=== PATIENT | male | born 1940 | race Caucasian/White ===

== ENCOUNTER 2019-07-21 13:46 | Outpatient (CLI) | payer MEDICARE, SELFPAY ==
--- NOTE | ~2019-07-21 | CT_ITS ---
EXAMINATION: CT chest wo con DATE: 07/21/2019 14:17 INDICATION: COPD TECHNIQUE: Computed tomography (CT) of the chest was performed without intravenous contrast. The dose -length product (DLP) was 382.06 mGy-cm. Automated exposure control and iterative reconstruction tech [employer] were employed. COMPARISON: None FINDINGS: There are tree-in-bud opacities of the lower lobes, left greater than right, the right uppe r lobe, and the left upper lobe. There is mild emphysema. No pleural effusion or pneumothorax is iden tified. No pathologically enlarged thoracic lymph nodes are identified. The heart size is normal. Zafar cified coronary artery atherosclerosis is noted. There is advanced osteoarthritis of the shoulders. T here are bridging osteophytes at multiple levels in the spine, consistent with diffuse idiopathic ske letal hyperostosis (DISH). Neurostimulator leads end in the central spinal canal. There are changes o f posterior fusion in the lumbar spine. IMPRESSION: 1. Findings most consistent with multifocal pneumonia. 2. Mild emphysema. Reviewed, dictated and finalized at location A.
== END 2019-07-21 13:47 | disposition home or self-care (01) ==
PROVIDERS: PCP Internal Medicine; Visit Provider Internal Medicine
DX: J44.9 Chronic obstructive pulmonary disease, unspecified (principal); J43.9 Emphysema, unspecified
CPT/HCPCS: 71250

== ENCOUNTER 2019-09-12 10:05 | Outpatient (CLI) | payer MEDICARE, SELFPAY ==
--- NOTE | 2019-09-12 12:00 | NEURO_ITS ---
Patient Number: [id number] Impression: # Complains of numbness of hands and neck pain. # Mild bilateral evolving Carpal Tunnel Syndrome. # Left ulnar neuropathy across the elbow. # Higher involvement needs to be ruled out as well. Nerve Conduction Studies Anti Sensory Summary Table Stim Site NR Peak (ms) P-T Amp (?V) Site1 Site2 Delta-P (ms) Dist (cm) Hi (m/s) Left Median Anti Sensory (2-3nd Digit) Wrist 4.1 6.8 Wrist 2-3nd Digit 4.1 14.0 34 Wrist 4.0 9.8 Wrist 2-3nd Digit 4.1 14.0 34 Right Median Anti Sensory (2-3nd Digit) Wrist 3.9 4.9 Wrist 2-3nd Digit 3.9 14.0 36 Wrist 3.8 10.4 Wrist 2-3nd Digit 3.9 14.0 36 Left Radial Anti Sensory (Base 1st Digit) Wrist 2.4 23.1 Wrist Base 1st Digit 2.4 0.0 Right Radial Anti Sensory (Base 1st Digit) Wrist 2.8 19.4 Wrist Base 1st Digit 2.8 0.0 Left Ulnar Anti Sensory (5th Digit) Wrist 3.5 15.9 Wrist 5th Digit 3.5 14.0 40 Right Ulnar Anti Sensory (5th Digit) Wrist 2.8 20.8 Wrist 5th Digit 2.8 14.0 50 Motor Summary Table Stim Site NR Onset (ms) O-P Amp (mV) Site1 Site2 Delta-0 (ms) Dist (cm) Hi (m/s) Left Median Motor (Abd Poll Brev) Wrist 4.2 1.0 Elbow Wrist 6.0 30.0 50 Elbow 10.2 0.6 Right Median Motor (Abd Poll Brev) Wrist 4.1 0.4 Elbow Wrist 5.0 29.0 58 Elbow 9.1 0.2 Left Ulnar Motor (Abd Dig Minimi) Wrist 3.3 3.1 A Elbow Wrist 6.4 28.0 44 A Elbow 9.7 2.5 B Elbow Wrist 5.8 24.0 41 B Elbow 9.1 1.7 Right Ulnar Motor (Abd Dig Minimi) Wrist 3.0 1.9 A Elbow Wrist 5.8 30.0 52 A Elbow 8.8 1.4 F Wave Studies NR F-Lat (ms) L-R F-Lat (ms) Left Median (Mrkrs) (Abd Poll Brev) 30.23 1.87 Right Median (Mrkrs) (Abd Poll Brev) 32.11 1.87 Left Ulnar (Mrkrs) (Abd Dig Min) 31.42 1.35 Right Ulnar (Mrkrs) (Abd Dig Min) 30.08 1.35 EMG Side Muscle Nerve Root Ins Act Fibs Amp Dur Recrt Comment Right 1stDorInt Ulnar C8-T1 Nml Nml Nml Nml Nml Right Ext Indicis Radial (Post Int) C7-8 Nml Nml Nml Nml Nml Right Ext Digitorum Radial (Post Int) C7-8 Nml Nml Nml Nml Nml Right BrachioRad Radial C5-6 Nml Nml Nml Nml Nml Right PronatorTeres Median C6-7 Nml Nml Nml Nml Nml Right Abd Poll Brev Median C8-T1 Nml Nml Nml Nml Nml Left 1stDorInt Ulnar C8-T1 Nml Nml Nml Nml Nml Left Ext Indicis Radial (Post Int) C7-8 Nml Nml Nml Nml Nml Left Ext Digitorum Radial (Post Int) C7-8 Nml Nml Nml Nml Nml Left BrachioRad Radial C5-6 Nml Nml Nml Nml Nml Left PronatorTeres Median C6-7 Nml Nml Nml Nml Nml Left Abd Poll Brev Median C8-T1 Nml Nml Nml Nml Nml MTDD
== END 2019-09-12 10:06 | disposition home or self-care (01) ==
PROVIDERS: PCP Internal Medicine; Visit Provider Internal Medicine
DX: R20.0 Anesthesia of skin (principal); G56.03 Carpal tunnel syndrome, bilateral upper limbs; G56.22 Lesion of ulnar nerve, left upper limb
CPT/HCPCS: 95886; 95911

== ENCOUNTER 2019-09-28 11:07 | Observation (INO) | payer MEDICARE, SELFPAY ==
[2019-09-28] VITALS (12 sets, daily range): BP systolic 129–151; BP diastolic 70–97; PULSE 62–97; RESP 12–20; TEMP 35.8–36.8; O2SAT 97–100; BMI 27.1
--- NOTE | ~2019-09-28 | CT_ITS ---
EXAMINATION: CT thoracic lumbar wo con DATE: 09/28/2019 12:01 INDICATION: Back pain. Injury. TECHNIQUE: Computed tomography (CT) of the thoracic and lumbar spine was performed without intravenou s contrast. Automated exposure control and iterative reconstruction technique were employed. The dose -length product was 1995.51 mGy-cm. COMPARISON: None FINDINGS: THORACIC SPINE CT: There is cervical dextroscoliosis. Vertebral body heights are normal. There is sev erely decreased disc height at T2-T3, T3-T4, and T12-L1 and mildly decreased disc height at multiple levels. There are endplate osteophytes at all levels. There is multilevel facet joint osteoarthritis, severe at many levels. There is mild neural foraminal stenosis at many levels bilaterally. On the ri ght, there is moderate neural foraminal stenosis at T3-T4 and T11-T12. On the left, there is moderate neural foraminal stenosis at T2-T3. There is mild central canal stenosis at T1-T2, T2-T3, T3-T4, T4- T5, T5-T6, T6-T7, T8-T9, T10-T11, and T12-L1. There are epidural electrodes with tips at T7-T8. LUMBAR SPINE CT: There is 6 degrees levocurvature of lumbar spine. There are changes of anterior fusi on procedure at L2-L3 with interbody device. There are changes of anterior fusion procedures at L3-L4 and L4-L5 with interbody devices and anterior plate and screws. There are changes of posterior fusio n procedure from L2 to S1 with pedicle screws. There is 2 mm lucency around the right S1 screw. There are laminectomies from L3 to L5. There is partial resection of the L2 spinous process. The following disc levels are specifically discussed: L1-L2: The disc is bulging. There is severe bilateral facet joint osteoarthritis. There is moderate b ilateral neural foraminal stenosis. There is mild central canal stenosis. L2-L3: There is mild left facet joint hypertrophy. There is mild bilateral neural foraminal stenosis. There is no central canal stenosis. L3-L4: There is no facet joint hypertrophy. There is mild bilateral neural foraminal stenosis with po sterior decompression. There is mild central canal stenosis with posterior decompression. L4-L5: There is mild bilateral facet joint hypertrophy. There is mild bilateral neural foraminal sten osis. There is mild central canal stenosis with posterior decompression. L5-S1: The disc is bulging. There is severe bilateral facet joint osteoarthritis. There is mild right and moderate left neural foraminal stenosis. There is mild central canal stenosis with posterior dec ompression. IMPRESSION: 1. Severe lumbar spondylosis. 2. Anterior fusion procedures from L2 to L5. 3. Posterior fusion procedure from L2 to S1 with lucencies around the right S1 screw, consistent with loosening. Reviewed, dictated and finalized at location A.
--- NOTE | ~2019-09-28 | XR_ITS ---
EXAMINATION: XR chest 1V INDICATION: Shortness of breath TECHNIQUE: AP view the chest is obtained. COMPARISON: 01/21/2016 FINDINGS: There are airspace opacities of the lung bases. No pleural effusion or pneumothorax identif ied. The cardiomediastinal silhouette is normal. Spine stimulator leads project over the midthoracic spine. There is moderate osteoarthritis of the shoulders. IMPRESSION: 1. Bibasilar airspace opacities, consistent with pneumonia versus atelectasis. Reviewed, dictated and finalized at location A.
--- NOTE | ~2019-09-28 | CT_ITS ---
EXAMINATION: CT brain wo con DATE: 09/28/2019 12:01 INDICATION: Neck pain. Fall. TECHNIQUE: Computed tomography (CT) of the head was performed without intravenous contrast. The mA wa s adjusted according to patient size. Iterative reconstruction technique was employed. The dose-lengt h product was 605.33 mGy-cm. COMPARISON: Head CT 02/25/2019 FINDINGS: There are scattered areas of low attenuation in the cerebral white matter, which is within normal limits for the patient's age. There is no intracranial hemorrhage, acute infarction, or abnorm al intracranial mass lesion. The ventricles are normal in size. There are likely changes of ocular le ns replacement surgeries. There is mild mucosal thickening in the ethmoid sinuses. There is a trace l eft mastoid effusion. IMPRESSION: 1. Normal aging brain. Reviewed, dictated and finalized at location A. IMPRESSION: 1. Normal aging brain.
--- NOTE | ~2019-09-28 | US_ITS ---
EXAMINATION: US carotid duplex BI DATE: 09/29/2019 09:08 INDICATION: Weakness. Disturbance of skin sensation with numbness and pain to the neck and upper back . Carotid atherosclerosis. TECHNIQUE: Grayscale, color Doppler, and pulsed Doppler images of the cervical carotid arteries were obtained. The degree of vessel stenosis is placed in one of the following categories: normal, <50%, 5 0-69%, >=70% but less than near-occlusion, near-occlusion, or total occlusion. Note that percent sten osis relative to normal distal artery lumen diameter is indirectly measured from velocity measurement s as described by Michel, et al. Radiology 2003; 229:340-346. COMPARISON: None. FINDINGS: RIGHT: The right common carotid artery (CCA) peak systolic velocity (PSV) is 55 cm/s. The right internal car otid artery (ICA) PSV is 69 cm/s. The right ICA end-diastolic velocity (EDV) is 24 cm/s. The right IC A/CCA PSV ratio is 1.3. Grayscale and color Doppler images yield an estimate of <50% diameter reducti on from plaque in the ICA. The external carotid artery (ECA) PSV is 79 cm/s. There is antegrade flow in the right vertebral artery. LEFT: The left CCA PSV is 80 cm/s. The left ICA PSV is 117 cm/s. The left ICA EDV is 27 cm/s. The left ICA/ CCA PSV ratio is 1.5. Grayscale and color Doppler images yield an estimate of <50% diameter reduction from plaque in the ICA. The ECA PSV is 65 cm/s. There is antegrade flow in the left vertebral artery . IMPRESSION: 1. <50% stenosis in the right internal carotid artery. 2. <50% stenosis in the left internal carotid artery. 3. Cardiac arrhythmias present. Correlate with EKG. Reviewed, dictated and finalized at location D.
--- NOTE | ~2019-09-28 | CT_ITS ---
EXAMINATION: CT cervical spine wo con DATE: 09/28/2019 12:00 INDICATION: Neck pain. TECHNIQUE: Computed tomography (CT) of the cervical spine was performed without intravenous contrast. Automated exposure control and iterative reconstruction technique were employed. The dose-length pro duct was 489.38 mGy-cm. COMPARISON: None FINDINGS: There is 2 mm anterolisthesis of C7 on T1. There is 19 degrees dextroscoliosis of cervical spine. Vertebral body heights are normal. There is mildly decreased disc height at C3-C4, severely de creased disc height at C5-C6 and C6-C7, and mildly decreased disc height at C7-T1. The following disc levels are specifically discussed: C2-C3: There is mild right and severe left uncovertebral joint osteoarthritis. There is severe bilate ral facet joint osteoarthritis. There is mild bilateral neural foraminal stenosis. There is mild cent ral canal stenosis. C3-C4: There is mild right and severe left uncovertebral joint osteoarthritis. There is severe bilate ral facet joint osteoarthritis. There is hypertrophy of the ligamentum flavum. There is moderate left neural foraminal stenosis. There is severe central canal stenosis. C4-C5: There is ankylosis of the uncovertebral joints with moderate left hypertrophy. There is ankylo sis of the facet joints with moderate left hypertrophy. There is mild left neural foraminal stenosis. There is no central canal stenosis. C5-C6: There is severe bilateral uncovertebral joint osteoarthritis. There is moderate and severe lef t facet joint osteoarthritis. There is mild bilateral neural foraminal stenosis. There is mild centra l canal stenosis. C6-C7: There is severe bilateral uncovertebral joint osteoarthritis. There is severe bilateral facet joint osteoarthritis. There is mild bilateral neural foraminal stenosis. There is mild central canal stenosis. C7-T1: There is mild bilateral uncovertebral joint osteoarthritis. There is severe bilateral facet brad int osteoarthritis. There is mild bilateral neural foraminal stenosis. There is mild central canal st enosis. IMPRESSION: 1. No fracture. 2. Severe cervical spondylosis. 3. Cervical dextroscoliosis. Reviewed, dictated and finalized at location A.
--- NOTE | 2019-09-28 11:27 | ECG_ITS ---
Measurements Intervals [employer] Rate: 67 P: 35 TX: 184 QRS: -42 QRSD: 102 T: 32 QT: 433 QTc: 459 Interpretive Statements SINUS RHYTHM ATRIAL PREMATURE COMPLEX LEFT AXIS DEVIATION RSR' IN V1 OR V2, CONSIDER RIGHT VENTRICULAR HYPERTROPHY OR RIGHT VCD BORDERLINE T WAVE ABNORMALITY- INFERIOR LEADS BASELINE WANDER- I, II ,AVR, AVL, V4-V6 BORDERLINE ECG Electronically Signed On 09-28-2019 13:18:44 CDT by Kaden Molina D.O.
[2019-09-28] MEDS: SODIUM CHLORIDE 0.9% IV 1,000 ML 999 ML IV CONT (11:37)
[2019-09-28 11:48] LABS: Basophils Percent Auto 0.2 % (0.2-1.2); Eosinophils Absolute Auto 0.1 K/mm3 (0-0.3); Hematocrit 36.3 % (42.0-52.0); Immature Granulocyte Absolute 0.01 K/mm3 (0.00-0.031); Immature Granulocyte Percent A 0.2 % (0-0.5); Lymphocytes Absolute Auto 0.77 K/mm3 (0.9-3.2); Lymphocytes Percent Auto 13.8 % (18.3-44.2); Mean Corpuscular HGB Conc 33.1 g/dl (32-36); Mean Corpuscular Hemoglobin 30.3 pg (26-34); Mean Corpuscular Volume 91.7 fl (80-100); Mean Platelet Volume 10.1 fl (7.4-10.4); Monocytes Absolute Auto 0.6 K/mm3 (0.1-0.6); Monocytes Percent Auto 10.9 % (2.6-8.5); Neutrophils Absolute Auto 4.1 K/mm3 (1.3-6.7); Neutrophils Percent Auto 72.9 % (45.5-73.1); Platelet Count Result 215 k/mm3 (150-375); Red Blood Count 3.96 M/mm3 (4.6-6.20); Red Cell Distribution Width 14.1 % (11.5-14.5); White Blood Count 5.6 K/mm3 (4.5-10.0)
[2019-09-28 11:58] LABS: INR 1.1
[2019-09-28 11:59] LABS: Partial Thromboplastin Time 32.8 SECONDS (22.3-36.8)
[2019-09-28 12:00] LABS: Alanine Aminotransferase 17 U/L (4-50); Albumin Level 3.6 g/dL (3.5-5.1); Alkaline Phosphatase 49 U/L (38-126); Aspartate Amino Transferase 30 U/L (17-59); Bilirubin,Total 0.7 mg/dL (0.2-1.3); Blood Urea Nitrogen 23 mg/dL (9-20); Calcium 9.5 mg/dL (8.4-10.2); Carbon Dioxide 30 mmol/L (22-30); Chloride 102 mmol/L (98-107); Creatine Kinase 202 U/L (55-170); Estimated CRCL calculation 52 ml/min; Estimated Glomerular Filt Rate > 60; Glucose 90 mg/dL (75-110); Lipase 22 U/L (23-300); Potassium 3.9 mmol/L (3.4-5.0); Sodium 138 mmol/L (137-145)
[2019-09-28 12:08] LABS: NT Pro B Type Natriuretic Pept 642 PG/ML (5-100)
[2019-09-28 12:11] LABS: Troponin I < 0.012 ng/mL (0.000-0.034)
--- NOTE | 2019-09-28 12:26 | ED.BACK ---
HPI - Back Pain/Injury General Chief Complaint: Back Pain/Injury <ALLI Chavez Last Filed: 09/28/19 14:21> Stated Complaint: weak <ALLI Chavez Last Filed: 09/28/19 14:21> Time Seen by Provider: 09/28/19 11:10 <ALLI Chavez Last Filed: 09/28/19 14:21> Source: patient <ALLI Chavez Last Filed: 09/28/19 14:21> Mode of arrival: ambulatory <ALLI Chavez Last Filed: 09/28/19 14:21> Limitations: no limitations <ALLI Chavez Last Filed: 09/28/19 14:21> History of Present Illness HPI Narrative: Patient is an 79-year-old male who presents with frequent falls and dizziness. Patient has fallen multiple times throughout the week lives at home by himself fell twice today for which family brought him in patient notes that he fell approximately 3 weeks ago and since has been having unsteady gait weakness saw primary care and has been taking hydrocodone with minimal improvement and complains of cervical to lumbar back pain. Patient denies any headache but also notes that he gets very dizzy with standing and ambulation which often is caused him to fall also notes weakness in the arms and legs that is progressed over the course of the last week. Patient also notes he gets short of breath with ambulation. Patient denies any chest pain or URI symptoms. Patient presents with family and is resting comfortably in the room in no distress upon arrival <LALI Chavez Last Filed: 09/28/19 14:21> Related Data Home Medications: Home Medications Medication Instructions Recorded Confirmed celecoxib 100 mg capsule 100 mg PO Q12H cap 08/28/19 09/18/19 oxycodone 10 mg tablet 10 mg PO Q4H tablet 08/28/19 09/18/19 <ALLI Chavez Last Filed: 09/28/19 14:21> Allergies/Adverse Reactions: Allergies Allergy/AdvReac Type Severity Reaction Status Date / Time amitriptyline Allergy Unknown Unknown Verified 09/18/19 11:54 carvedilol Allergy Unknown Unknown Verified 09/18/19 11:54 diltiazem Allergy Unknown Unknown Verified 09/18/19 11:54 <Inderjit Khan PA-C - Last Filed: 09/28/19 14:21> Review of Systems Review of Systems: All systems reviewed & are unremarkable except as noted in HPI and below <Inderjit Khan PA-C - Last Filed: 09/28/19 14:21> PMFSH Past Medical History Medical History: Medical History (Updated 09/28/19 @ 14:21 by Inderjit Khan PA-C) Carpal tunnel syndrome on both sides Cervical radiculopathy Cervical spondylosis with radiculopathy Chronic obstructive pulmonary disease, unspecified <Inderjit Khan PA-C - Last Filed: 09/28/19 14:21> Surgical History Surgical History: Surgical History (Updated 09/28/19 @ 12:28 by Inderjit Khan PA-C) History of orthopedic surgery <Inderjit Khan PA-C - Last Filed: 09/28/19 14:21> Social History Social History: Social History Smoking status: Former smoker Smoking end date: 05/03/85 Alcohol intake: never <Inderjit Khan PA-C - Last Filed: 09/28/19 14:21> Exam Narrative: Exam Narrative: GENERAL: Well-appearing, well-nourished, and in no acute distress. HEAD: Normocephalic, atraumatic. EYES: PERRLA and EOMI. ENT: Nares clear, no rhinorrhea or epistaxis. Mucous membranes moist. Oropharynx without tonsillar hypertrophy exudate or other lesions. NECK: Supple. No adenopathy or masses. No carotid bruits or JVD CHEST: Clear to auscultation. No respiratory distress. No wheezes rales or rhonchi HEART: Regular rate and rhythm. No murmur heard. Normal peripheral pulses. ABDOMEN: Soft, nontender, nondistended, EXTREMITIES: Normal range of motion. No edema. Tenderness of the mid cervical thoracic and lumbar spine no deformities noted SKIN: Warm, dry, no rash. Small skin tear to the left upper extremity at the level of the elbow NEURO: No focal deficit
[2019-09-28 15:22] LABS: Troponin I < 0.012 ng/mL (0.000-0.034)
[2019-09-28] MEDS: LACTATED RINGERS 1,000 ML 75 ML IV CONT (15:23)
--- NOTE | 2019-09-28 16:24 | ADMGEN ---
This patient, Brandon Ambrose, was admitted to Medical Room 255-. Patient/family oriented to hospital policies and general routines including ID bracelet, bed and alarms, visiting hours, pain management, procedures, bathroom and other care routines, personal items, smoking policy, room service/diet, and visiting hours. Valuables list has been completed. Information on how to activate the Rapid Response Team has been discussed. Patient/Family are encouraged to report perceived risks to care and to ask questions if they do not understand what they are told or what they should do.
--- NOTE | 2019-09-28 16:45 | PM.IMHP ---
H&P: HPI History of Present Illness Chief complaint: Neck pain and weakness. Narrative: Brandon Ambrose is a very pleasant 79-year-old male with type 2 diabetes mellitus, hypertension, hypothyroidism, obstructive sleep apnea, chronic anemia, and history of prostate cancer who presented to the emergency department earlier today for evaluation of neck pain and weakness. He has pretty significant osteoarthritis of the spine with radiculopathy for which he takes pregabalin and oxycodone as needed. Several weeks ago while mushroom hunting, he lost his balance and fell forward into the split of a tree where he was stuck until friends came to help him. Since that time, he has had worsening pain, mostly in his neck, upper back, and shoulders that he has a difficult time describing. He also reports upper extremity weakness and paresthesias in his fingers ?like needles are being jabbed into them? in addition to decreased dexterity. He has become progressively more weak and has had falls nearly every day over the past couple of weeks. While ambulating, he becomes weak and ?shaky? causing him to fall, typically onto his buttock or forward. He has not had any head trauma or loss of consciousness, but does note that he had the left side of his head on the tree and is fall several weeks ago. Additionally, he tells me ?I am all screwed up in the head? and he thinks that his short-term memory has been affected since the incident several weeks ago. He denies lightheadedness/dizziness. No focal weakness. He denies dysphagia and dysarthria. No facial asymmetry. No history of CVA. He denies bowel and bladder incontinence. No saddle anesthesia. He has not had auditory or visual changes. No chest pain, palpitations, or feelings of racing heart. He denies ever being diagnosed with rheumatoid arthritis or polymyalgia rheumatica. Of note, he did have nerve conduction testing showing mild bilateral carpal tunnel. He was also given a steroid injection a week or so ago without a whole lot of benefit. Review of Systems Review of Systems: Narrative: Twelve systems were reviewed with pertinent positives and negatives as per HPI. No fever, chills, or sweats. No recent cold or flu-like symptoms. Weight has remained stable. Occasional occipital headaches. He has noticed swelling in his hands and feet, but denies any noticeable growth of these areas. No history of stroke, dementia, or Parkinson's. He denies chest pain and palpitations. No cough or shortness of breath. Appetite has been a bit decreased, however no nausea or vomiting. No diarrhea. Last bowel movement was about 3 days ago, which he states is not unusual. No dysuria. He does have occasional lower urinary tract symptoms to include urge incontinence, dribbling, and occasional feelings of incomplete emptying of the bladder. Except as documented, all other systems were reviewed and are negative. He has also been doing physical therapy for several weeks without a whole lot of benefit. [facility]LY [facility] Past Medical History Medical History (Updated 09/28/19 @ 20:46 by Pura Rincon PA-C) Basal cell carcinoma Multiple lesions excise over the years. Carpal tunnel syndrome on both sides Cervical spondylosis with radiculopathy Chronic anemia Chronic obstructive pulmonary disease, unspecified Essential hypertension Hypothyroidism Non-insulin dependent type 2 diabetes mellitus Obstructive sleep apnea on CPAP Osteoarthritis Prostate cancer (~2015) 35 treatments of external beam radiation. Surgical History Surgical History (Updated 09/28/19 @ 16:21 by Pura Rincon PA-C) History of appendectomy (~07/2017) History of arthroscopy of both shoulders History of herniorrhaphy (~2015) Open left inguinal herniorrhaphy. History of lumbar fusion Anterior fusion at L2-L5. Posterior fusion at L2-S1. History of orthopedic surgery Family History Family History Regi
[2019-09-28 18:10] LABS: CRP 1.6 mg/dL (<1.0); Creatine Kinase 212 U/L (55-170)
[2019-09-28] MEDS: GABAPENTIN 100 MG CAPSULE PO (18:26)
[2019-09-28 18:31] LABS: Rheumatoid Factor < 8.6 IU/ML (<12)
[2019-09-28 18:49] LABS: Erythrocyte Sedimentation Rate 20 mm/hr (0-20)
[2019-09-28 19:46] LABS: Free T4 Free Thyroxine Reflex 1.24 ng/dL (0.78-2.19)
[2019-09-28] MEDS: FAMOTIDINE 20 MG/2 ML VIAL IV PUSH (20:09)
[2019-09-28] MEDS: CELECOXIB 100 MG CAPSULE PO (21:43)
[2019-09-28 22:06] LABS: Total Triiodothyronine (T3) 1.09 NG/ML (0.97-1.69)
[2019-09-29] VITALS (8 sets, daily range): BP systolic 146–164; BP diastolic 65–98; PULSE 53–81; RESP 16–18; TEMP 35.9–36.7; O2SAT 95–99
[2019-09-29 03:33] LABS: Glucose Point of Care 77 (65-105)
[2019-09-29] MEDS: LEVOTHYROXINE SODIUM 50 MCG TABLET PO (04:58)
[2019-09-29] MEDS: LACTATED RINGERS 1,000 ML 75 ML IV CONT (05:02)
[2019-09-29 05:57] LABS: Basophils Percent Auto 0.4 % (0.2-1.2); Eosinophils Absolute Auto 0.2 K/mm3 (0-0.3); Eosinophils Percent Auto 3.2 % (0-4.4); Hematocrit 34.9 % (42.0-52.0); Hemoglobin 11.3 g/dL (14.0-18.0); Immature Granulocyte Absolute 0.01 K/mm3 (0.00-0.031); Immature Granulocyte Percent A 0.2 % (0-0.5); Lymphocytes Absolute Auto 0.57 K/mm3 (0.9-3.2); Lymphocytes Percent Auto 10.6 % (18.3-44.2); Mean Corpuscular HGB Conc 32.4 g/dl (32-36); Mean Corpuscular Hemoglobin 29.7 pg (26-34); Mean Corpuscular Volume 91.8 fl (80-100); Mean Platelet Volume 9.9 fl (7.4-10.4); Monocytes Absolute Auto 0.6 K/mm3 (0.1-0.6); Monocytes Percent Auto 10.2 % (2.6-8.5); Neutrophils Absolute Auto 4.1 K/mm3 (1.3-6.7); Neutrophils Percent Auto 75.4 % (45.5-73.1); Platelet Count Result 188 k/mm3 (150-375); Red Cell Distribution Width 13.9 % (11.5-14.5); White Blood Count 5.4 K/mm3 (4.5-10.0)
--- NOTE | 2019-09-29 06:00 | ECHO_ITS ---
Patient Info Name: Brandon Ambrose Age: 79 years : 1940 Gender: Male Ht: 69 in Wt: 183 lbs BSA: 2.03 m2 HR: 53 bpm BP: 164 / 98 mmHg Technical Quality: Good Exam Date: 09/29/2019 9:16 AM Exam Location: [facility] Exam Room: [facility] Patient Status: Outpatient Admit Date: 09/28/2019 Staff Ordering Physician: Inderjit Khan PA-C Army Manager: Angy Mcgowan RDCS Attending Provider: Breanna Berkowitz PA-C Referring Physician: Bill ODELL; Exam Type: CA echo doppler color flow Study Info Indications - weakness Complete two-dimensional, color flow and Doppler transthoracic echocardiogram is performed. Summary 1. Left ventricular systolic function is preserved, estimated at 50-55%. 2. Left ventricular chamber dimension is moderately enlarged. 3. The left ventricular diastolic function is grade I diastolic dysfunction. 4. E/e' 12 is mildly elevated. 5. Global longitudinal strain is abnormal at -14.6%. 6. Left atrial chamber dimension is mildly enlarged. 7. There is mild aortic valve sclerosis. 8. The mitral valve has moderately calcified annulus. 9. No pulmonary hypertension, estimated pulmonary arterial systolic pressure is 28 mmHg. 10. There is trace pulmonic regurgitation. Left Ventricle E/e' 12 is mildly elevated. Global longitudinal strain is abnormal at -14.6%. Left ventricular systolic function is preserved, estimated at 50-55%. Left ventricular chamber dimension is moderately enlarged. The left ventricular diastolic function is grade I diastolic dysfunction. Right Ventricle Right ventricular chamber dimension is normal. Right ventricular systolic function is normal. Left Atria Left atrial chamber dimension is mildly enlarged. Right Atria Right atrial chamber dimension is normal. Aortic Valve The aortic valve is trileaflet. There is mild aortic valve sclerosis. There is no aortic valve stenosis. There is no aortic valve regurgitation. Pulmonic Valve There is trace pulmonic regurgitation. Mitral Valve The mitral valve has moderately calcified annulus. There is no mitral valve stenosis. There is no mitral valve regurgitation. Tricuspid Valve There is no tricuspid valve regurgitation. No pulmonary hypertension, estimated pulmonary arterial systolic pressure is 28 mmHg. Pericardium/Pleural There is no pericardial effusion. Inferior Vena Cava Normal inferior vena cava with >50% collapse upon inspiration consistent with normal right atrial pressure, 5 mmHg. Aorta The aortic root size at the sinus of Valsalva is normal. Left Ventricular Outflow Tract Name Value Normal LVOT 2D LVOT Diameter 2.1 cm LVOT Doppler LVOT Peak Gradient 4 mmHg LVOT Mean Gradient 3 mmHg LVOT VTI 24 cm LVOT VTI/AV VTI Ratio 1.0 LVOT Stroke Volume 82 ml LVOT CO 15.5 l/min LVOT CI 7.7 l/min/m2 Pulmonic Valve
[2019-09-29 06:07] LABS: Alanine Aminotransferase 26 U/L (4-50); Albumin Level 3.1 g/dL (3.5-5.1); Alkaline Phosphatase 87 U/L (38-126); Aspartate Amino Transferase 65 U/L (17-59); Bilirubin,Total 0.9 mg/dL (0.2-1.3); Blood Urea Nitrogen 17 mg/dL (9-20); Calcium 8.8 mg/dL (8.4-10.2); Carbon Dioxide 30 mmol/L (22-30); Chloride 104 mmol/L (98-107); Creatine Kinase 151 U/L (55-170); Estimated CRCL calculation 64 ml/min; Estimated Glomerular Filt Rate > 60; Glucose 83 mg/dL (75-110); Magnesium 1.8 mg/dL (1.6-2.3); Phosphorus 3.6 mg/dL (2.5-4.5); Potassium 3.8 mmol/L (3.4-5.0); Sodium 139 mmol/L (137-145)
[2019-09-29 07:51] LABS: Glucose Point of Care 64 (65-105)
[2019-09-29] MEDS: MAGNESIUM OXIDE 400 MG TABLET PO (08:10)
[2019-09-29] MEDS: DULOXETINE 60 MG CAPSULE.DR PO (08:10)
[2019-09-29] MEDS: ASPIRIN 81 MG ENTERIC TABLET PO (08:10)
[2019-09-29] MEDS: CELECOXIB 100 MG CAPSULE PO (08:10)
[2019-09-29] MEDS: PREGABALIN 75 MG CAPSULE PO (08:13)
[2019-09-29 09:01] LABS: Glucose Point of Care 114 (65-105)
--- NOTE | 2019-09-29 12:35 | PM.TDS ---
Transfer Discharge Sum: Prov Provider Date of admission: 09/28/19 14:22 Primary care physician: Inderjit Sunshine Jr., MD Admitting clinician: Caitlyn Perla MD Consults: 09/29/19 08:21 Consult to Physician Routine Comment: Consulting Provider: Bronson Epperson youth accommodation support worker/MD group to consult: Neurology Reason for consultation: Increased weakness, falls, severe spinal stenosis w/ radiculopathy Has provider been notified: Yes Attending physician on discharge: Caitlyn Perla Discharging clinician: Breanna Berkowitz Anticipated date of transfer: 09/29/19 Receiving physician/facility: [facility], Medicine floor, Accepting Dr. [place] DS: Admitting Diagnosis Admitting Diagnosis Admitting Diagnosis: Radiculopathy, cervical region DS: Discharge Diagnosis Discharge Diagnosis (1) Central stenosis of spinal canal: Code(s): M48.00 - Spinal stenosis, site unspecified Status: Acute (2) Cervical spondylosis with radiculopathy: Code(s): M47.22 - Other spondylosis with radiculopathy, cervical region Status: Acute (3) Thoracic spondylosis with radiculopathy: Code(s): M47.24 - Other spondylosis with radiculopathy, thoracic region Status: Acute (4) Lumbosacral spondylosis with radiculopathy: Code(s): M47.27 - Other spondylosis with radiculopathy, lumbosacral region Status: Acute (5) Gait instability: Code(s): R26.81 - Unsteadiness on feet Status: Acute (6) Normocytic anemia: Code(s): D64.9 - Anemia, unspecified Status: Acute (7) Generalized weakness: Code(s): R53.1 - Weakness Status: Acute (8) Non-insulin dependent type 2 diabetes mellitus: Code(s): E11.9 - Type 2 diabetes mellitus without complications Status: Acute (9) Essential hypertension: Code(s): I10 - Essential (primary) hypertension Status: Acute Transfer Discharge Sum: Med Medications Active and Home Medications: Home Medications aspirin 81 mg tablet,delayed release 81 mg PO DAILY #1 tablet 03/23/19 [Rx Confirmed 09/28/19] duloxetine 60 mg capsule,delayed release 60 mg PO DAILY #1 cap 03/23/19 [Rx Confirmed 09/28/19] levothyroxine 50 mcg tablet 50 mcg PO DAILY #1 tablet 03/23/19 [Rx Confirmed 09/28/19] magnesium oxide 400 mg PO DAILY #90 cap 07/05/19 [Rx Confirmed 09/28/19] pregabalin 75 mg capsule 75 mg PO BID 90 Days #180 cap 07/10/19 [Rx Confirmed 09/28/19] celecoxib 100 mg capsule 100 mg PO Q12H cap 08/28/19 [History Confirmed 09/28/19] oxycodone 10 mg tablet 10 mg PO Q4H PRN tablet 08/28/19 [History Confirmed 09/28/19] prednisone 10 mg tablets in a dose pack See Rx Instructions PO PER PKG DIR 12 Days #48 each 09/18/19 [Rx Confirmed 09/18/19] ergocalciferol (vitamin D2) 1,250 mcg (50,000 unit) capsule 50,000 unit PO 2XW #24 cap 09/19/19 [Rx Confirmed 09/28/19] metformin 1,000 mg PO DAILY@1700 09/28/19 [History Confirmed 09/28/19] Active Medications Hydrocodone Bitart/Acetaminophen ([place]oston 5-325 Mg) 1 tab PO Q6H PRN PRN Reason: Pain Rated 4-6 Last Admin: 09/29/19 04:57 Dose: 1 tab Documented by: Aspirin (Aspirin Ec) 81 mg PO DAILY [facility] Last Admin: 09/29/19 08:10 Dose: 81 mg Documented by: Celecoxib (Celebrex) 100 mg PO Q12HR [facility] Last Admin: 09/29/19 08:10 Dose: 100 mg Documented by: Dextrose (Dextrose 50% Syringe) 12.5 gm IV PUSH PRN PRN; Protocol PRN Reason: Hypoglycemia Duloxetine HCl (Cymbalta) 60 mg PO DAILY [facility] Last Admin: 09/29/19 08:10 Dose: 60 mg Documented by: Glucagon (Glucagon For Inj) 1 mg IM PRN PRN; Protocol PRN Reason: Hypoglycemia Glucose (Glutose 15) 15 gm PO PRN PRN; Protocol PRN Reason: Hypoglycemia Lactated Ringer's (Lr - Lactated Ringers Iv) 1,000 mls @ 75 mls/hr IV CONT .[id number] [facility] Last Admin: 09/29/19 05:02 Dose: 75 mls/hr Documented by: Dextrose (Dextrose 5% 1,000 Ml) 1,000 mls @ 100 mls/hr IVPB PRN PRN; Protocol PRN Reason: Hypoglycemia Insulin Aspart (Novolog) 2 - 5 units SUB-Q
--- NOTE | 2019-09-29 13:24 | PCPTNOTE ---
Upon reading latest note - pt is being transferred to [facility] for more definitive care due to spinal cord dysfunction. PT eval will not be attempted during hospitalization.
[2019-09-29 14:56] LABS: Glucose Point of Care 133 (65-105)
[2019-09-29 18:25] LABS: Glucose Point of Care 121 (65-105)
--- NOTE | 2019-09-29 18:55 | PC.NURSE ---
Patient transferred to [facility]. Report given to Alfreda WANG.
--- NOTE | 2019-10-24 12:16 | WPDNEURCNPN ---
Consult date: 10/24/19 HPI: Brandon Ambrose is a 79 year old male not seen prior to discharge [facility] Past Medical History Medical History (Updated 09/29/19 @ 12:50 by Breanna Berkowitz PA-C) Basal cell carcinoma Multiple lesions excise over the years. Carpal tunnel syndrome on both sides Cervical spondylosis with radiculopathy Chronic anemia Chronic obstructive pulmonary disease, unspecified Essential hypertension Hypothyroidism Non-insulin dependent type 2 diabetes mellitus Obstructive sleep apnea on CPAP Osteoarthritis Prostate cancer (~2015) 35 treatments of external beam radiation. Surgical History Surgical History (Updated 09/28/19 @ 16:21 by Pura Rincon PA-C) History of appendectomy (~07/2017) History of arthroscopy of both shoulders History of herniorrhaphy (~2015) Open left inguinal herniorrhaphy. History of lumbar fusion Anterior fusion at L2-L5. Posterior fusion at L2-S1. History of orthopedic surgery Family History Family History Mother Family history of congestive heart failure Other Diabetes mellitus Social History Social History (Updated 09/28/19 @ 20:40 by Pura Rincon PA-C) Social History: The patient lives in his own home in [place]. His of 60 years July 14, 2019. He smoked up to 2 packs of cigarettes per day for 30 years and quit in the mid 1980s. He drinks alcohol very rarely and in moderation. No drug use. He designates his son, Tunde, as his surrogate decision maker. He wishes to be a full code. Smoking end date: 05/03/85 Alcohol intake: never Substance use: never Gender identity (if verbalized by the patient): Male Spiritual care concerns: No Meds Home Medications and Allergies Home Medications Medication Instructions Recorded Confirmed Type aspirin 81 mg tablet,delayed 81 mg PO DAILY #1 tablet 03/23/19 09/28/19 Rx release duloxetine 60 mg capsule,delayed 60 mg PO DAILY #1 cap 03/23/19 09/28/19 Rx release levothyroxine 50 mcg tablet 50 mcg PO DAILY #1 tablet 03/23/19 09/28/19 Rx magnesium oxide 400 mg PO DAILY #90 cap 03/04/20 05/28/20 Rx pregabalin 75 mg capsule 75 mg PO BID 90 Days #180 cap 07/10/19 09/28/19 Rx celecoxib 100 mg capsule 100 mg PO Q12H cap 08/28/19 09/28/19 History oxycodone 10 mg tablet 10 mg PO Q4H PRN tablet 08/28/19 09/28/19 History ergocalciferol (vitamin D2) 1,250 50,000 unit PO 2XW #24 cap 09/19/19 09/28/19 Rx mcg (50,000 unit) capsule metformin 1,000 mg PO DAILY@1700 09/28/19 09/28/19 History Allergies Allergy/AdvReac Type Severity Reaction Status Date / Time amitriptyline Allergy Unknown Unknown Verified 09/18/19 11:54 carvedilol Allergy Unknown Unknown Verified 09/18/19 11:54 diltiazem Allergy Unknown Unknown Verified 09/18/19 11:54 Results Labs CBC & Chem 7: 09/29/19 05:45 09/29/19 05:45 Quality VTE Prophylaxis VTE prophylaxis: mechanical ordered
--- NOTE | 2019-10-24 12:21 | WPDNEUROPN ---
Progress Note: A&P Additional Plan not seen prior to discharge Objective Data Meds/Results Radiology Results: ITS Impressions Head CT 09/28/19 12:06 IMPRESSION: 1. Normal aging brain. Cervical Spine CT 09/28/19 12:08 IMPRESSION: 1. No fracture. 2. Severe cervical spondylosis. 3. Cervical dextroscoliosis. Thoracic/Lumbar Spine CT 09/28/19 12:13 IMPRESSION: 1. Severe lumbar spondylosis. 2. Anterior fusion procedures from L2 to L5. 3. Posterior fusion procedure from L2 to S1 with lucencies around the right S1 screw, consistent with loosening. Chest X-Ray 09/28/19 12:17 IMPRESSION: 1. Bibasilar airspace opacities, consistent with pneumonia versus atelectasis. Carotid Doppler Study 09/29/19 09:14 IMPRESSION: 1. <50% stenosis in the right internal carotid artery. 2. <50% stenosis in the left internal carotid artery. 3. Cardiac arrhythmias present. Correlate with EKG. Quality VTE Prophylaxis VTE prophylaxis: mechanical ordered
== END 2019-09-29 18:55 | disposition short-term general hospital (02) ==
LOC: ANHED 14:23 → ANH2MED 14:49
PROVIDERS: Emergency Medicine Emergency Medical Services; Physician Assistant; Admitting Provider Family Medicine; Emergency Provider Emergency Medicine; PCP Internal Medicine; Visit Provider Physician Assistant
DX: M48.00 Spinal stenosis, site unspecified (principal); M47.22 Other spondylosis with radiculopathy, cervical region; M47.24 Other spondylosis with radiculopathy, thoracic region; M47.27 Other spondylosis with radiculopathy, lumbosacral region; Z98.1 Arthrodesis status; R26.81 Unsteadiness on feet; D64.9 Anemia, unspecified; R53.1 Weakness; E11.9 Type 2 diabetes mellitus without complications; I10 Essential (primary) hypertension; E03.9 Hypothyroidism, unspecified; G47.33 Obstructive sleep apnea (adult) (pediatric); J44.9 Chronic obstructive pulmonary disease, unspecified; R06.02 Shortness of breath; W19.XXXA Unspecified fall, initial encounter; Z91.81 History of falling; Z79.82 Long term (current) use of aspirin; Z79.84 Long term (current) use of oral hypoglycemic drugs; Z79.899 Other long term (current) drug therapy; Z87.891 Personal history of nicotine dependence
CPT/HCPCS: 36415; 70450; 71045; 72125; 72128; 72131; 80053; 82550; 82607; 82728; 83690; 83735; 83880; 84100; 84439; 84443; 84480; 84484; 85025; 85610; 85652; 85730; 86038; 86140; 86430; 93005; 93306; 93880; 96361; 96365; 96375; 99285; A9270; G0378; J0131; J1100; J7030; J7120

== ENCOUNTER 2020-04-08 14:39 | Outpatient (CLI) | payer MEDICARE, SELFPAY ==
--- NOTE | ~2020-04-08 | XR_ITS ---
XR shoulder RT min 2V DATE: 04/08/2020 15:11 INDICATION: Anterior right shoulder pain for 3 weeks. Right rotator cuff injury. TECHNIQUE: 4 views COMPARISON: None FINDINGS: Incidentally noted is posterior cervical spine surgical fusion. There are electrodes overly ing the thoracic spinal canal. There is prominent soft tissue calcification or ossification along the superior aspect of the chronic reticular joint, with degenerative spurring. There is mild osteoarthritis at the glenohumeral joint. There is moderate osteopenia. No fracture or dislocation, periosteal reaction or bone destruction is detected. IMPRESSION: Degenerative change and prominent soft tissue ossification or calcification along the sup erior aspect of the acromioclavicular joint Osteoarthritis at the glenohumeral joint Osteopenia Reviewed, dictated and finalized at location A. GEMENT LEAD IMPRESSION: Degenerative change and prominent soft tissue ossification or calci fication along the superior aspect of the acromioclavicular joint Osteoarthritis at the glenohumeral joint Osteopenia
== END 2020-04-08 14:40 | disposition home or self-care (01) ==
PROVIDERS: PCP Internal Medicine; Visit Provider Internal Medicine
DX: S46.009A Unspecified injury of muscle(s) and tendon(s) of the rotator cuff of unspecified shoulder, initial encounter (principal); X58.XXXA Exposure to other specified factors, initial encounter; M85.811 Other specified disorders of bone density and structure, right shoulder; M19.011 Primary osteoarthritis, right shoulder
CPT/HCPCS: 73030

== ENCOUNTER → 2020-05-09 13:57 | Outpatient (REF) | payer MEDICARE, SELFPAY | LOC: ANHLAB 13:57 | PROVIDERS: PCP Internal Medicine; Visit Provider Nurse Practitioner | DX: C44.321 Squamous cell carcinoma of skin of nose (principal) | CPT/HCPCS: 88305 ==

== ENCOUNTER 2020-05-14 12:35 | Observation (INO) | payer MEDICARE, SELFPAY ==
[2020-05-14] VITALS (31 sets, daily range): BP systolic 121–144; BP diastolic 53–90; PULSE 54–116; RESP 12–20; TEMP 36.5–36.7; O2SAT 93–98; BMI 26.4
--- NOTE | ~2020-05-14 | CT_ITS ---
EXAMINATION: CT cervical spine wo con DATE: 05/14/2020 16:45 INDICATION: Neck pain. TECHNIQUE: Computed tomography (CT) of the cervical spine was performed without intravenous contrast. Automated exposure control and iterative reconstruction technique were employed. The dose-length pro duct was 420.05 mGy-cm. COMPARISON: None FINDINGS: There is 2 mm anterolisthesis of C3 on C4. There is 12 degrees dextroscoliosis of cervical spine. There are changes of posterior fusion procedure from C2 to C5 with lateral mass screws. There is no lateral mass screw on the left at C3. Vertebral body heights are normal. There is mildly decrea sed disc height at C2-C3 and C3-C4, severely decreased disc height at C5-C6 and C6-C7, and mildly dec reased disc height at C7-T1. There are laminectomies at C3 and C4. The following disc levels are spec ifically discussed: C2-C3: There is mild left uncovertebral joint osteoarthritis. There is mild right and moderate left f acet joint hypertrophy. There is mild bilateral neural foraminal stenosis. There is no central canal stenosis. C3-C4: There is severe left uncovertebral joint osteoarthritis. There is mild right and severe left f acet joint hypertrophy. There is mild left neural foraminal stenosis. There is mild central canal fuad nosis with posterior decompression. C4-C5: There is ankylosis of the uncovertebral joints without hypertrophy. There is ankylosis of the facet joints with mild left hypertrophy. There is mild left neural foraminal stenosis. There is no ce ntral canal stenosis. C5-C6: There is severe bilateral uncovertebral joint osteoarthritis. There is severe left facet joint hypertrophy. There is mild bilateral neural foraminal stenosis. There is mild central canal stenosis . C6-C7: There is severe bilateral uncovertebral joint osteoarthritis. There is moderate right and cynthia re left facet joint osteoarthritis. There is moderate right and mild left neural foraminal stenosis. There is mild central canal stenosis. C7-T1: There is mild bilateral uncovertebral joint osteoarthritis. There is severe bilateral facet brad int osteoarthritis. There is mild bilateral neural foraminal stenosis. There is mild central canal st enosis. IMPRESSION: 1. No fracture. 2. Severe cervical spondylosis. 3. Posterior fusion procedure from C2 to C5. Reviewed, dictated and finalized at location A. R VEHICLE SALESPERSON
--- NOTE | ~2020-05-14 | CT_ITS ---
EXAMINATION: CT thoracic lumbar wo con DATE: 05/14/2020 16:44 INDICATION: Back pain. Fall. TECHNIQUE: Computed tomography (CT) of the thoracic and lumbar spine was performed without intravenou s contrast. Automated exposure control and iterative reconstruction technique were employed. The dose -length product was 1968.11 mGy-cm. COMPARISON: CT thoracic and lumbar spine 09/28/2019 FINDINGS: CT THORACIC SPINE: There are groundglass opacities and septal thickening in the lower lobes. There is mild atelectasis in right upper lobe. No pleural effusion. Bone alignment is normal. There is mild c hronic anterior wedging of multiple vertebral bodies. There is severely decreased disc height at T2-3 and T3-T4. There is mildly decreased disc height and multiple levels. There are bridging endplate os teophytes from T4 to T10, consistent with diffuse idiopathic skeletal hyperostosis (DISH). There is m ultilevel facet joint osteoarthritis, severe at many levels. There is mild neural foraminal stenosis at many levels bilaterally. On the right, there is moderate neural foraminal stenosis at T3-T4, T8-T9 , and T11-T12. On the left, there is moderate neural foraminal stenosis at T2-T3. There is mild centr al canal stenosis at most levels. There are epidural electrodes at T8 and T9. There are changes of re section of portions of the spinous processes of T8 and T9. The following disc levels are specifically discussed: CT LUMBAR SPINE: There is 6 degrees levocurvature of lumbar spine. There are changes of anterior fusi on procedure at L2-L3 with interbody device. There are changes of anterior fusion procedures at L3-L4 and L4-L5 with interbody devices and anterior plate and screws. There are changes of posterior fusio n procedure from L2 to S1 with pedicle screws. There is 2 mm lucency around the right S1 screw. There are laminectomies from L3 to L5. There is partial resection of the L2 spinous process. The following disc levels are specifically discussed: L1-L2: The disc is bulging. There is severe bilateral facet joint osteoarthritis. There is moderate b ilateral neural foraminal stenosis. There is mild central canal stenosis. L2-L3: There is mild left facet joint hypertrophy. There is mild bilateral neural foraminal stenosis. There is no central canal stenosis. L3-L4: There is no facet joint hypertrophy. There is mild bilateral neural foraminal stenosis with po sterior decompression. There is mild central canal stenosis with posterior decompression. L4-L5: There is mild bilateral facet joint hypertrophy. There is mild bilateral neural foraminal sten osis. There is mild central canal stenosis with posterior decompression. L5-S1: The disc is bulging. There is severe bilateral facet joint osteoarthritis. There is mild right and moderate left neural foraminal stenosis. There is mild central canal stenosis with posterior dec ompression. IMPRESSION: 1. No fracture. 2. Severe thoracic and lumbar spondylosis. 3. Anterior fusion procedures from L2 to L5. 4. Posterior fusion procedure from L2 to S1 with chronic lucencies around the right S1 screw, consist ent with loosening. 5. Thoracic DISH. 6. Groundglass opacities and septal thickening in the lower lobes of the lungs, consistent with atele ctasis versus pneumonia. Reviewed, dictated and finalized at location A. C LIBRARY ASSISTANT IMPRESSION: 1. No fracture. 2. Severe thoracic and lumbar spondylosis. 3. Anterior fusion procedures from L2 to L5. 4. Posterior fusion procedure from L2 to S1 with chronic lucencies around the r ight S1 screw, consistent with loosening. 5. Thoracic DISH. 6. Groundglass opacities and septal thickening in the lower lobes of the lungs, consistent with atelectasis versus pneumonia.
--- NOTE | ~2020-05-14 | XR_ITS ---
EXAMINATION: XR chest 2V DATE: 05/14/2020 13:56 INDICATION: Weakness TECHNIQUE: PA and lateral views of the chest are obtained. COMPARISON: 09/28/2019 FINDINGS: There are airspace opacities of the lung bases. There is no pleural effusion or pneumothora x. The cardiomediastinal silhouette is normal. There is moderate thoracic spondylosis. Spine stimulat or leads project over the midthoracic spine. IMPRESSION: 1. Bibasilar airspace opacities, consistent with atelectasis versus pneumonia. Reviewed, dictated and finalized at location A. N RESOURCES TEAM MEMBER
--- NOTE | ~2020-05-14 | CT_ITS ---
EXAMINATION: CT brain wo con DATE: 05/14/2020 16:44 INDICATION: Weakness. Neck pain. TECHNIQUE: Computed tomography (CT) of the head was performed without intravenous contrast. The mA wa s adjusted according to patient size. Iterative reconstruction technique was employed. The dose-lengt h product was 605.33 mGy-cm. COMPARISON: Head CT 09/28/2019 FINDINGS: There are scattered areas of low attenuation in the cerebral white matter, which is within normal limits for the patient's age. There is no intracranial hemorrhage, acute infarction, or abnorm al intracranial mass lesion. The ventricles are normal in size. There are likely changes of ocular le ns replacement surgeries. There is mild mucosal thickening in the paranasal sinuses. There is a trace left mastoid effusion. IMPRESSION: 1. Normal aging brain. Reviewed, dictated and finalized at location A. FORM REMOVER IMPRESSION: 1. Normal aging brain.
--- NOTE | 2020-05-14 12:38 | ECG_ITS ---
Measurements Intervals [place] Rate: 93 P: VT: 0 QRS: -51 QRSD: 113 T: 32 QT: 357 QTc: 445 Interpretive Statements SINUS RHYTHM CHANGES TO ATRIAL TACHYCARDIA ATRIAL PREMATURE COMPLEXES LEFT AXIS DEVIATION INCOMPLETE RIGHT BUNDLE BRANCH BLOCK VOLTAGE CRITERIA FOR LVH CANNOT RULE OUT SEPTAL INFARCT, AGE INDETERMINATE BORDERLINE T WAVE ABNORMALITY- INFERIOR LEADS BASELINE ARTIFACT- I, II, III, AVR, AVL, AVF, V1 ABNORMAL ECG Electronically Signed On 05-14-2020 13:01:45 CHALK CUTTER by Kaden Molina D.O.
[2020-05-14 12:54] LABS: Basophils Percent Auto 0.2 % (0.2-1.2); Eosinophils Percent Auto 0.2 % (0-4.4); Hematocrit 36.1 % (42.0-52.0); Hemoglobin 11.9 g/dL (14.0-18.0); Immature Granulocyte Absolute 0.02 K/mm3 (0.00-0.031); Immature Granulocyte Percent A 0.5 % (0-0.5); Lymphocytes Absolute Auto 0.54 K/mm3 (0.9-3.2); Lymphocytes Percent Auto 13.4 % (18.3-44.2); Mean Corpuscular Hemoglobin 29.4 pg (26-34); Mean Corpuscular Volume 89.1 fl (80-100); Mean Platelet Volume 10.1 fl (7.4-10.4); Monocytes Absolute Auto 0.4 K/mm3 (0.1-0.6); Monocytes Percent Auto 9.9 % (2.6-8.5); Neutrophils Absolute Auto 3.1 K/mm3 (1.3-6.7); Neutrophils Percent Auto 75.8 % (45.5-73.1); Platelet Count Result 123 k/mm3 (150-375); Red Blood Count 4.05 M/mm3 (4.6-6.20); Red Cell Distribution Width 14.8 % (11.5-14.5)
[2020-05-14 13:11] LABS: Alanine Aminotransferase 21 U/L (4-50); Albumin Level 3.5 g/dL (3.5-5.1); Alkaline Phosphatase 49 U/L (38-126); Anion Gap 2 mmol/L (8-16); Aspartate Amino Transferase 75 U/L (17-59); Bilirubin,Total 0.9 mg/dL (0.2-1.3); Blood Urea Nitrogen 24 mg/dL (9-20); Calcium 8.6 mg/dL (8.4-10.2); Carbon Dioxide 32 mmol/L (22-30); Chloride 100 mmol/L (98-107); Estimated CRCL calculation 52 ml/min; Estimated Glomerular Filt Rate > 60; Glucose 127 mg/dL (75-110); Potassium 3.8 mmol/L (3.4-5.0); Sodium 134 mmol/L (137-145)
--- NOTE | 2020-05-14 15:18 | ED.WEAKNESS ---
HPI - Weakness General Chief complaint: Weakness Stated complaint: Weakness Time Seen by Provider: 05/14/20 15:18 History of Present Illness HPI Narrative: 79 yo male presents to the ED with multiple complaints. He says that his back is gone. His neck is gone. His legs are gone. He feels weak. He endorses nausea, vomiting, fever, chest pain, SOB, multiple falls. He cannot give me any specifics. History limited due to extremely poor historian. Related Data Home Medications Medication Instructions Recorded Confirmed celecoxib 100 mg capsule 100 mg PO Q12H cap 08/28/19 04/08/20 metformin 1,000 mg PO DAILY@1700 09/28/19 04/08/20 Allergies Allergy/AdvReac Type Severity Reaction Status Date / Time amitriptyline Allergy Unknown Unknown Verified 05/09/20 13:37 carvedilol Allergy Unknown Unknown Verified 05/09/20 13:37 diltiazem Allergy Unknown Unknown Verified 05/09/20 13:37 Review of Systems Review of Systems: All systems reviewed & are unremarkable except as noted in HPI and below Constitutional: Constitutional: Reports fever(s) and Reports weakness ENT: Reports dizziness Cardiovascular: Cardiovascular: Reports chest pain Respiratory: Respiratory: Reports cough and Reports dyspnea Gastrointestinal: Gastrointestinal: Reports nausea and Reports vomiting Genitourinary: Genitourinary: Reports urinary frequency Musculoskeletal: Musculoskeletal: Reports back pain Neurologic: Reports weakness PMFSH Past Medical History Medical History Basal cell carcinoma Multiple lesions excise over the years. Carpal tunnel syndrome on both sides Cervical post-laminectomy syndrome Cervical spondylosis with radiculopathy Chronic anemia Chronic obstructive pulmonary disease, unspecified Essential hypertension Hypothyroidism Non-insulin dependent type 2 diabetes mellitus OAB (overactive bladder) Obstructive sleep apnea on CPAP Osteoarthritis Prostate cancer (~2015) 35 treatments of external beam radiation. 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 Brandin Heredia 02/19/2020 Surgical History Surgical History History of appendectomy (~07/2017) History of arthroscopy of both shoulders History of herniorrhaphy (~2015) Open left inguinal herniorrhaphy. History of lumbar fusion Anterior fusion at L2-L5. Posterior fusion at L2-S1. History of orthopedic surgery Status post laminectomy Family History Family History Mother Family history of congestive heart failure Other Diabetes mellitus Social History Social History Social History: The patient lives in his own home in [place]. His of 60 years July 14, 2019. He smoked up to 2 packs of cigarettes per day for 30 years and quit in the mid 1980s. He drinks alcohol very rarely and in moderation. No drug use. He designates his son, Tunde, as his surrogate decision maker. He wishes to be a full code. Smoking end date: 05/03/85 Alcohol intake: never Substance use: never Gender identity (if verbalized by the patient): Male Spiritual care concerns: No Exam Const: General: no acute distress and alert Nutritional Appearance: well nourished Orientation/consciousness: patient oriented x3 HENMT: Head: normal to inspection Neck: Neck: normal visual inspection Resp: Effort & Inspection: normal respiratory effort Auscultation: clear to auscultation bilaterally Cardio: Rate: regular rate Rhythm: regular rhythm GI: GI Palp: Yes Soft to palpation and No Tenderness to palpation present (GI) Skin: General skin exam: normal color Wounds: no wounds Neuro: General: patient oriented x3, moves all extremities, no focal motor deficits and CN's II-XI intact bilaterally Speech: normal speech Extrem
[2020-05-14 16:22] LABS: Add Urine Microscopic? YES; Appearance Urine Clear (Clear); Bacteria Urine Trace /hpf; Bilirubin Urine Negative (Negative); Blood Urine 1+ (Negative); Color Urine Yellow (Yellow); Glucose Urine UA Negative (Negative); Ketones Urine Trace mg/dL (Negative); Leukocyte Esterase Ur Negative LEU/UL (Negative); Mucus Urine Few /lpf; Nitrate Urine Negative (Negative); Protein Urine 2+ mg/dL (Negative); RBC Urine 0-2 /hpf (0-2); Specific Grav Ur 1.026 (1.001-1.035); Squamous Epithelial Cell Urine Rare /hpf (Few); WBC Urine 0-3 /hpf
[2020-05-14] MEDS: SODIUM CHLORIDE 0.9% IV 500 ML 999 ML IV CONT (17:13)
--- NOTE | 2020-05-14 20:35 | ADMGEN ---
This patient, Brandon Ambrose, was admitted to [facility] Surg Room 313-01. Patient/family oriented to hospital policies and general routines including ID bracelet, bed and alarms, visiting hours, pain management, procedures, bathroom and other care routines, personal items, smoking policy, room service/diet, and visiting hours. Information on how to activate the Rapid Response Team has been discussed. Patient/Family are encouraged to report perceived risks to care and to ask questions if they do not understand what they are told or what they should do.
[2020-05-14] MEDS: LACTATED RINGERS 1,000 ML 75 ML IV CONT (20:48)
[2020-05-14] MEDS: MORPHINE SULFATE (*CRX) 2 MG/ML INJ IV PUSH (21:07)
--- NOTE | 2020-05-14 23:30 | PM.IMHP ---
H&P: HPI History of Present Illness Date/Time: 05/14/20 23:30 Chief Complaint: Weak and tired. Narrative: This is an 79-year-old male with type 2 diabetes mellitus, hypertension, hypothyroidism, obstructive sleep apnea, chronic anemia, and history of prostate cancer who presented to the emergency department earlier today for evaluation with complaints of feeling ?weak and tired.? He has chronic arthritic pain, mostly in his spine, and that seems to have gotten worse recently. He tells me it feels like he was hit with a sledgehammer in the middle of his low back, with some radiation down the back of the legs. Sounds like he has not been getting up and about as much due to the pain and now feels weak and worn out. He also complains of right shoulder pain which is been an ongoing issue for him and in fact he has been getting injections in that shoulder. He has occasional paresthesias in the upper extremities which has been present for a majority of this year despite cervical spine surgery. Additionally he reports a poor appetite and a mild cough which is occasionally productive of clear phlegm. No sick contacts or exposure to those positive with COVID-19. He denies fever, chills, and sweats. No anosmia and dysgeusia. He denies sinus congestion, rhinorrhea, otalgia, and odynophagia. No nausea, vomiting, or diarrhea. Review of Systems Review of Systems: Narrative: Twelve systems were reviewed with pertinent positives and negatives as per HPI. No chest pain, pleuritic pain, or palpitations. He had a normal bowel movement earlier today. No dysuria or change in urine output. He denies bowel and bladder incontinence. No saddle anesthesia. No new focal deficits. No vertigo. Except as documented, all other systems were reviewed and are negative. [facility], [facility] Past Medical History Medical History (Updated 05/15/20 @ 13:49 by Pura Rincon PA-C) Basal cell carcinoma Multiple lesions excise over the years. Carpal tunnel syndrome on both sides Cervical post-laminectomy syndrome Cervical spondylosis with radiculopathy Chronic anemia Chronic obstructive pulmonary disease, unspecified Essential hypertension Hypothyroidism Non-insulin dependent type 2 diabetes mellitus Obstructive sleep apnea on CPAP Osteoarthritis Overactive bladder Prostate cancer (~2016) 35 treatments of external beam radiation. 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in Heredia at [facility]. Surgical History Surgical History (Updated 05/15/20 @ 13:56 by Pura Rincon PA-C) History of appendectomy (~07/2017) History of arthroscopy of both shoulders History of cervical spinal surgery (~10/10/19) C3-C4 laminectomy with C2-C5 laminotomy. History of herniorrhaphy (~2015) Open left inguinal herniorrhaphy. History of lumbar fusion Anterior fusion at L2-L5. Posterior fusion at L2-S1. History of orthopedic surgery History of squamous cell carcinoma excision (~02/19/20) Excised from the scalp as detailed above. Status post laminectomy Family History Family History Mother Family history of congestive heart failure Other Diabetes mellitus Social History Social History Social History: The patient lives in his own home in [place]. His of 60 years July 14, 2019. He smoked up to 2 packs of cigarettes per day for 30 years and quit in the mid 1980s. He drinks alcohol very rarely and in moderation. No drug use. He designates his son, Tunde, as his surrogate decision maker. He wishes to be a full code. Smoking packs per day: 2 Smoking cigarettes per day: 40.0 Years smoked: 30 Smoking pack-years: 60.00 Smoking status: Former smoker Smoking end date: 05/03/85 Alcohol intake: never Substance use: never Gender identity (if verbalized by th
[2020-05-15] VITALS: BP 128/66; PULSE 70; RESP 18; TEMP 36.6; O2SAT 92
[2020-05-15] MEDS: oxyCODONE/ACETAMINOPHEN (*CRX) 5-325 MG TABLET 1 TABLET PO ×2 (02:07→09:52)
[2020-05-15 04:00] VITALS: BP 122/67; PULSE 68; RESP 18; TEMP 36.7; O2SAT 90
[2020-05-15 06:48] LABS: Hematocrit 30.9 % (42.0-52.0); Hemoglobin 10.2 g/dL (14.0-18.0); Mean Corpuscular Hemoglobin 29.1 pg (26-34); Mean Corpuscular Volume 88.3 fl (80-100); Mean Platelet Volume 10.5 fl (7.4-10.4); Platelet Count Result 104 k/mm3 (150-375); Red Cell Distribution Width 14.6 % (11.5-14.5); White Blood Count 3.3 K/mm3 (4.5-10.0)
[2020-05-15] MEDS: LEVOTHYROXINE SODIUM 50 MCG TABLET PO (06:52)
[2020-05-15 06:53] LABS: Hemoglobin A1C 5.7 % (<5.7)
[2020-05-15 07:02] LABS: Alanine Aminotransferase 17 U/L (4-50); Albumin Level 2.8 g/dL (3.5-5.1); Alkaline Phosphatase 44 U/L (38-126); Anion Gap 1 mmol/L (8-16); Aspartate Amino Transferase 57 U/L (17-59); Bilirubin,Total 0.8 mg/dL (0.2-1.3); Blood Urea Nitrogen 20 mg/dL (9-20); Calcium 8.3 mg/dL (8.4-10.2); Carbon Dioxide 31 mmol/L (22-30); Chloride 102 mmol/L (98-107); Creatine Kinase 728 U/L (55-170); Estimated CRCL calculation 57 ml/min; Estimated Glomerular Filt Rate > 60; Glucose 90 mg/dL (75-110); Lactate Dehydrogenase 632 U/L (313-618); Magnesium 1.6 mg/dL (1.6-2.3); Potassium 3.5 mmol/L (3.4-5.0); Sodium 134 mmol/L (137-145)
[2020-05-15 08:00] VITALS: BP 130/73; PULSE 63; RESP 16; TEMP 36.6; O2SAT 91
[2020-05-15 08:10] LABS: CRP 15.7 mg/dL (<1.0)
[2020-05-15 08:24] LABS: Glucose Point of Care 88 (65-105)
[2020-05-15] MEDS: LACTATED RINGERS 1,000 ML 75 ML IV CONT (09:52)
[2020-05-15] MEDS: MAGNESIUM OXIDE 400 MG TABLET PO (09:53)
[2020-05-15] MEDS: MELOXICAM 7.5 MG TABLET 15 MG PO (09:53)
[2020-05-15] MEDS: MIRABEGRON 25 MG ER TABLET PO (09:53)
[2020-05-15] MEDS: PREGABALIN (*CRX) 75 MG CAPSULE PO (09:53)
[2020-05-15] MEDS: DULoxetine HCL 60 MG CAPSULE.DR PO (09:54)
[2020-05-15 11:39] LABS: Glucose Point of Care 130 (65-105)
[2020-05-15 12:00] VITALS: BP 141/85; PULSE 107; RESP 16; TEMP 36.5; O2SAT 96
[2020-05-15 12:01] LABS: Free T4 Free Thyroxine Reflex 0.96 ng/dL (0.78-2.19)
--- NOTE | 2020-05-15 13:13 | PM.DS ---
DS: Admitting Diagnosis Admitting Diagnosis Admitting Diagnosis: back pain DS: Discharge Diagnosis Discharge Diagnosis (1) Acute exacerbation of chronic low back pain: Code(s): M54.5 - Low back pain; G89.29 - Other chronic pain Status: Acute Assessment and Plan: most likely related to osteoarthritis pain control no evidence of spinal cord syndrome follow-up with PCP PT OT as outpatient (2) Person under investigation for COVID-19: Code(s): Z20.822 - Contact with and (suspected) exposure to COVID-19 Status: Acute Assessment and Plan: follow-up on the results of COVID-19 (3) Bilateral leg weakness: Code(s): R29.898 - Other symptoms and signs involving the musculoskeletal system Status: Acute Assessment and Plan: follow-up with PCP as outpatient (4) Abnormal chest x-ray: Code(s): R93.89 - Abnormal findings on diagnostic imaging of other specified body structures Status: Acute Assessment and Plan: follow-up with PCP regarding result of the CT scan arthritis/ loosening of the screw at the surgery area (5) Skin neoplasm: Code(s): D49.2 - Neoplasm of unspecified behavior of bone, soft tissue, and skin Status: Acute Assessment and Plan: follow-up with PCP (6) Cervical post-laminectomy syndrome: Code(s): M96.1 - Postlaminectomy syndrome, not elsewhere classified Status: Acute Assessment and Plan: follow-up with the established surgeon (7) Lumbosacral spondylosis with radiculopathy: Code(s): M47.27 - Other spondylosis with radiculopathy, lumbosacral region Status: Acute Assessment and Plan: pain control (8) Non-insulin dependent type 2 diabetes mellitus: Code(s): E11.9 - Type 2 diabetes mellitus without complications Status: Acute Assessment and Plan: continue home medication (9) Essential hypertension: Code(s): I10 - Essential (primary) hypertension Status: Acute Assessment and Plan: continue home medication DS: Summary Hospital Course Hospital Course: patient was admitted to the hospital with back pain patient also have cough generalized weaknessCOVID-19 test is pending back pain most likely related to arthritis follow-up with PCP patient also to follow-up on the results of the COVID-19 Time Spent with Patient Time attestation: Total time spent providing and/or coordinating discharge services: for 47 minutes Exam Narrative: Exam Narrative: Alert Chest no wheeze crackles Abdomen nontender nondistended CVS S1 + S2 Lower extremity edema mild lower extremity weakness no stool or urine incontinence no significant sensory loss DS: Data Data Completed and Pending Labs on day of discharge: Labs from last 24 hours 05/15/20 05/15/20 05/15/20 11:34 07:45 06:15 WBC RBC Hgb Hct MCV MCH MCHC RDW Plt Count MPV Sodium Potassium Chloride Carbon Dioxide Anion Gap BUN Creatinine Estim Creat Clear Calc Estimated GFR Glucose POC Capillary Glucose 130 H 88 Hemoglobin A1c Calcium Magnesium Ferritin Total Bilirubin AST ALT Alkaline Phosphatase Lactate Dehydrogenase Total Creatine Kinase C-Reactive Protein Total Protein Albumin TSH (Reflex) Free T4 Total T3 Pending Urine Color Urine Appearance Urine pH Ur Specific [place] Urine Protein Urine Glucose (UA) Urine Ketones Ur Blood (Man) Urine Nitrate Urine Bilirubin Urine Urobilinogen Leukocyte Esterase Rfl Urine RBC Urine WBC Ur Squamous Epith Cells Urine Bacteria Urine Mucus SARS-CoV-2 RNA (RT-PCR) 05/15/20 05/15/20 05/15/20 06:15 06:15 06:15 WBC RBC Hgb Hct MCV MCH MCHC RDW Plt Count MPV Sodium 134 L Potassium 3.5 Chloride 102 Carbon Dioxide
[2020-05-15 13:15] LABS: Total Triiodothyronine (T3) 0.57 NG/ML (0.97-1.69)
[2020-05-15 18:18] LABS: SARS-CoV-2 RNA PCR Positive
[2020-05-15 22:40] LABS: Lactate Dehydrogenase 731 U/L (313-618)
[2020-05-15 22:43] LABS: Troponin I 0.022 ng/mL (0.000-0.034)
[2020-05-15 22:45] LABS: CRP 13.9 mg/dL (<1.0)
== END 2020-05-15 15:30 | disposition home health service (06) ==
LOC: ANHED 15:41 → ANH3MEDSUR 20:07
PROVIDERS: Emergency Medicine; Physician Assistant; Admitting Provider Family Medicine; Emergency Provider Emergency Medicine; PCP Internal Medicine; Visit Provider Internal Medicine
DX: U07.1 COVID-19 (principal); E11.9 Type 2 diabetes mellitus without complications; I10 Essential (primary) hypertension; E03.9 Hypothyroidism, unspecified; G47.33 Obstructive sleep apnea (adult) (pediatric); D64.9 Anemia, unspecified; Z85.46 Personal history of malignant neoplasm of prostate; Z85.828 Personal history of other malignant neoplasm of skin; Z87.891 Personal history of nicotine dependence; R53.1 Weakness; G89.29 Other chronic pain; M47.812 Spondylosis without myelopathy or radiculopathy, cervical region; Z98.1 Arthrodesis status; M47.815 Spondylosis without myelopathy or radiculopathy, thoracolumbar region; M96.1 Postlaminectomy syndrome, not elsewhere classified; Z79.4 Long term (current) use of insulin
CPT/HCPCS: 36415; 51701; 70450; 71046; 72125; 72128; 72131; 80053; 81001; 82550; 82728; 83036; 83615; 83735; 84439; 84443; 84480; 84484; 85025; 85027; 86140; 93005; 96361; 96374; 97161; 97165; 99285; A9270; C9803; G0378; J2270; J7040; J7120; U0003; U0005

== ENCOUNTER → 2020-07-01 07:47 | Outpatient (REF) | payer MEDICARE, SELFPAY | LOC: ANHLAB 07:47 | PROVIDERS: PCP Internal Medicine; Visit Provider Nurse Practitioner | DX: C44.321 Squamous cell carcinoma of skin of nose (principal) | CPT/HCPCS: 88305; 88331 ==

== ENCOUNTER → 2020-12-10 10:08 | Outpatient (REF) | payer MEDICARE, SELFPAY | LOC: ANHLAB 10:08 | PROVIDERS: PCP Internal Medicine; Visit Provider Nurse Practitioner | DX: L90.5 Scar conditions and fibrosis of skin (principal); L73.9 Follicular disorder, unspecified | CPT/HCPCS: 88305 ==

== ENCOUNTER 2021-07-31 15:22 | Emergency (ER) | payer OTHER, MEDICARE, SELFPAY ==
--- NOTE | ~2021-07-31 | XR_ITS ---
XR chest 2V DATE: 07/31/2021 15:58 INDICATION: Dizziness, weakness. History of hypertension. Prostate cancer. TECHNIQUE: PA and lateral views COMPARISON: 05/14/2020 PA and lateral chest FINDINGS: Normal heart size. Aortic calcification. No hilar or mediastinal mass lesion is evident. Moderate hyperinflation of the lungs. No pulmonary in filtrate or consolidation, pleural effusion or pulmonary vascular congestion or pneumothorax. Anterior and posterior lumbar surgical spinal fusion. Diffuse osteopenia. Degenerative changes of the thoracic and lumbar spine. Electrodes are noted at the posterior mid to lower thoracic spinal canal. IMPRESSION: No active cardiopulmonary disease Reviewed, dictated and finalized at location A.
[2021-07-31 15:25] VITALS: BP 132/82; PULSE 87; RESP 16; TEMP 36.6; O2SAT 100
--- NOTE | 2021-07-31 15:28 | ECG_ITS ---
Measurements Intervals [place] Rate: 69 P: ID: 0 QRS: -53 QRSD: 116 T: 74 QT: 408 QTc: 439 Interpretive Statements SINUS RHYTHM WITH FREQUENT PREMATURE ATRIAL CONTRACTIONS MARKED BASELINE ARTIFACT LEFT ANTERIOR FASCICULAR BLOCK [QRS AXIS <= -45, QR IN I, RS IN II] MINIMAL VOLTAGE CRITERIA FOR LVH, CONSIDER NORMAL VARIANT [MEETS CRITERIA IN ONE OF: R(aVL), S(V1), R(V5), R(V5/V6)+S(V1)] NONSPECIFIC ST ABNORMALITY ABNORMAL ECG COMPARED TO ECG 05/14/2020 12:44:23 LEFT ANTERIOR FASCICULAR BLOCK NOW PRESENT ST (T WAVE) DEVIATION NOW PRESENT Electronically Signed On 07-31-2021 16:00:58 CDT by Robert Bell M.D.
[2021-07-31 15:50] LABS: Basophils Percent Auto 0.2 % (0.2-1.2); Eosinophils Percent Auto 0.4 % (0-4.4); Hematocrit 39.8 % (42.0-52.0); Hemoglobin 12.8 g/dL (14.0-18.0); Immature Granulocyte Absolute 0.04 K/mm3 (0.00-0.031); Immature Granulocyte Percent A 0.4 % (0-0.5); Lymphocytes Absolute Auto 1.26 K/mm3 (0.9-3.2); Mean Corpuscular HGB Conc 32.2 g/dl (32-36); Mean Corpuscular Hemoglobin 31.1 pg (26-34); Mean Corpuscular Volume 96.8 fl (80-100); Mean Platelet Volume 10.5 fl (7.4-10.4); Monocytes Absolute Auto 0.8 K/mm3 (0.1-0.6); Monocytes Percent Auto 8.5 % (2.6-8.5); Neutrophils Absolute Auto 7.5 K/mm3 (1.3-6.7); Neutrophils Percent Auto 77.5 % (45.5-73.1); Platelet Count Result 235 k/mm3 (150-375); Red Blood Count 4.11 M/mm3 (4.6-6.20); Red Cell Distribution Width 13.5 % (11.5-14.5); White Blood Count 9.7 K/mm3 (4.5-10.0)
[2021-07-31 16:00] LABS: Alanine Aminotransferase 12 U/L (4-50); Albumin Level 3.4 g/dL (3.5-5.1); Alkaline Phosphatase 220 U/L (38-126); Anion Gap 5 mmol/L (8-16); Aspartate Amino Transferase 28 U/L (17-59); Bilirubin,Total 0.8 mg/dL (0.2-1.3); Blood Urea Nitrogen 18 mg/dL (9-20); Calcium 8.8 mg/dL (8.4-10.2); Carbon Dioxide 28 mmol/L (22-30); Chloride 102 mmol/L (98-107); Estimated CRCL calculation 50 ml/min; Estimated Glomerular Filt Rate > 60; Glucose 97 mg/dL (65-110); Sodium 135 mmol/L (137-145)
--- NOTE | 2021-07-31 17:11 | PC.NURSE ---
pt left d/t wait time, and cursing out staff prior to leaving.
== END 2021-07-31 17:24 | disposition left against medical advice (07) ==
LOC: ANHED 17:22
PROVIDERS: Emergency Provider Family Medicine
DX: R53.1 Weakness (principal)
CPT/HCPCS: 36415; 71046; 80053; 85025; 93005; 99199

== ENCOUNTER → 2021-09-02 10:49 | Outpatient (REF) | payer MEDICARE, SELFPAY | LOC: ANHLAB 10:49 | PROVIDERS: Visit Provider Nurse Practitioner | DX: C44.42 Squamous cell carcinoma of skin of scalp and neck (principal) | CPT/HCPCS: 88305 ==

== ENCOUNTER 2021-09-09 09:48 | Outpatient (CLI) | payer MEDICARE, SELFPAY ==
--- NOTE | ~2021-09-09 | CT_ITS ---
EXAMINATION: CT abdomen pelvis w con DATE: 09/09/2021 10:35 INDICATION: Prostate cancer restaging TECHNIQUE: Computed tomography (CT) of the abdomen and pelvis was performed with 100 CC Omnipaque 300 intravenous contrast. Automated exposure control and iterative reconstruction technique were employe d. Exam dose: 744.34 mGy-cm total exam DLP. COMPARISON: 07/08/2017 CT abdomen pelvis FINDINGS: The lung bases are clear of infiltrate or consolidation. Coronary artery calcifications. No pericardial or pleural effusion. No hepatic, splenic, pancreatic, and adrenal or renal space-occupying mass lesion is detected. 3.8 mm nonobstructing upper pole right renal calculus. 2.7 mm upper pole left renal cortical calcification. No ureteral calculus or hydroureteronephrosis is noted. The urinary bladder wall is diffusely thickened, the bladder relatively evacuated. Surgical clips are noted in the prostate. Small sliding hiatal hernia. Diverticulosis of the colon; no CT evidence of diverticulitis. No bowel obstruction, bowel wall thickening, pneumatosis or intraperitoneal free air is detected. There is atherosclerotic calcification of the abdominal aorta but no aneurysm. There is probably calc ification at the origins of the celiac and superior mesenteric arteries. No intraperitoneal or retrop eritoneal or pelvic mass lesion or adenopathy or ascites is noted. Right gluteal area subcutaneous battery pack with posterior thoracic spinal leads. Status post posterior spinal fusion by pedicle screws and rods at L2-S1. There is anterior cervical s pine fusion and L3-4 and L4-5. Interbody spinal fusion at L2-3, L3-4 and L4-5. There is interval development of extensive osteosclerotic prostate metastatic disease, involving mult iple ribs, the sternum, extensively involving the thoracic and lumbar spine, with multiple associated sclerotic metastases of the pelvis and femurs. IMPRESSION: Interval development of extensive osteosclerotic disease of the axial skeleton since 07/08 Reviewed, dictated and finalized at Location A. Reviewed, dictated and finalized at location B. IMPRESSION: Interval development of extensive osteosclerotic disease of the ax ial skeleton since 07/08/2017
--- NOTE | ~2021-09-09 | NM_ITS ---
EXAMINATION: NM bone scan whole body DATE: 09/09/2021 13:48 INDICATION: Prostate cancer TECHNIQUE: A 4.5 mCi Tc-99m HDP was administered intravenously. Delayed whole-body scintigrams were obtained. COMPARISON: Bone scan dated 08/22/[address] abdomen and pelvis dated 09/09/2021 FINDINGS: There are numerous scattered foci of abnormal bone uptake throughout the axial and appendicular skele ton with corresponding sclerotic bone lesions on CT in the visualized portion of the spine, pelvis, r ibs and bilateral proximal femurs consistent with widespread metastatic prostate cancer. Photopenic d efects at the bilateral knees consistent with total knee arthroplasties. Likely degenerative mild summer nt centered uptake at the feet, hands and elbows. IMPRESSION: 1. Widespread osteoblastic bone lesions consistent with metastatic prostate cancer. Reviewed, dictated and finalized at location A. IMPRESSION: 1. Widespread osteoblastic bone lesions consistent with metastatic prostate can cer.
[2021-09-09 10:28] LABS: Estimated Glomerular Filt Rate > 60
== END 2021-09-09 09:49 | disposition home or self-care (01) ==
PROVIDERS: Visit Provider Urology
DX: C61 Malignant neoplasm of prostate (principal); C79.51 Secondary malignant neoplasm of bone
CPT/HCPCS: 74177; 78306; A9561; Q9967

== ENCOUNTER → 2021-10-27 10:30 | Outpatient (REF) | payer MEDICARE, SELFPAY | LOC: ANHLAB 10:30 | PROVIDERS: Visit Provider Nurse Practitioner | DX: C44.42 Squamous cell carcinoma of skin of scalp and neck (principal) | CPT/HCPCS: 88305; 88331 ==

== ENCOUNTER 2022-04-07 14:58 | Outpatient (NON) | payer MEDICARE, SELFPAY | END 2022-04-07 14:59 | disposition home or self-care (01) | LOC: ANHLAB 04-08 14:58 | PROVIDERS: Visit Provider Nurse Practitioner | DX: D49.2 Neoplasm of unspecified behavior of bone, soft tissue, and skin (principal) | CPT/HCPCS: 88305 ==

== ENCOUNTER 2022-06-15 13:47 | Outpatient (NON) | payer MEDICARE, SELFPAY | END 2022-06-15 13:48 | disposition home or self-care (01) | LOC: ANHLAB 13:48 | PROVIDERS: Visit Provider Nurse Practitioner | DX: C44.42 Squamous cell carcinoma of skin of scalp and neck (principal); C44.229 Squamous cell carcinoma of skin of left ear and external auricular canal | CPT/HCPCS: 88305; 88331 ==

== ENCOUNTER 2022-08-10 14:13 | Emergency (ER) | payer MEDICARE, SELFPAY ==
--- NOTE | ~2022-08-10 | XR_ITS ---
EXAMINATION: XR chest 2V Exam Date/Time: 08/10/2022 15:00 CDT HISTORY: Fall Comparison: 07/31/2021, CT abdomen and pelvis 09/09/2021. RESULT: Lines, tubes, and devices: Stimulator leads project over the midthoracic spine. Incompletely visuali zed cervical and lumbar fusion hardware.. Lungs and pleura: Senescent/emphysematous change. Bilateral posterior costophrenic angle blunting. Cardiomediastinal silhouette: Stable. Other: No acute upper abdominal finding. Mild anterior wedge deformity at T11 Multiple sclerotic oss eous lesions. IMPRESSION: Small bilateral pleural effusions. Mild height loss at T11, may represent acute or chronic compressio n fracture, correlate with pain/tenderness. Sclerotic osseous metastases. Reviewed, dictated and finalized at [facility]. IMPRESSION: Small bilateral pleural effusions. Mild height loss at T11, may represent acute or chronic compression fracture, correlate with pain/tenderness. Sclerotic oss eous metastases.
--- NOTE | ~2022-08-10 | CT_ITS ---
EXAMINATION: CT brain wo con DATE: 08/10/2022 15:07 INDICATION: Status post fall. Headache. TECHNIQUE: Computed tomography (CT) of the head was performed without intravenous contrast. The dose- length product was 681.00 mGy-cm. Automated exposure control and iterative reconstruction technique w ere employed. COMPARISON: CT dated 05/14/2020 FINDINGS: Generalized atrophy. There are scattered mild periventricular and subcortical white matter changes, most likely related to small vessel ischemic disease (microangiopathy). No ventriculomegaly or midline shift. No acute intracranial hemorrhage, infarction, mass or mass effect. There is intracr anial atherosclerosis. Paranasal sinuses and mastoids are pneumatized. No depressed skull fractures. IMPRESSION: 1. No acute intracranial abnormality. No significant interval change. Reviewed, dictated and finalized at location B.
--- NOTE | ~2022-08-10 | CT_ITS ---
EXAMINATION: CT cervical spine wo con DATE: 08/10/2022 15:07 INDICATION: Right neck pain. Fall. TECHNIQUE: Computed tomography (CT) of the cervical spine was performed without intravenous contrast. Automated exposure control and iterative reconstruction technique were employed. The dose-length pro duct was 592.21 mGy-cm. COMPARISON: CT cervical spine 05/14/20 FINDINGS: There is a small left mastoid effusion. There is 18 degrees dextroscoliosis of cervical spi ne. There is 2 mm anterolisthesis of C7 on T1. Vertebral body heights are normal. There are greater t suarez 20 scattered sclerotic lesions of bone, consistent with metastatic disease. There is mildly decre ased disc height at C3-C4 and severely decreased disc height at C5-C6 and C6-C7 and mildly decreased disc height at C7-T1. There are changes of posterior fusion procedure from C2 to C5 with lateral mass screws. There are laminectomies at C3 and C4. The following disc levels are specifically discussed: C2-C3: There is mild left uncovertebral joint hypertrophy. There is ankylosis of the facet joints wit h moderate left hypertrophy. There is mild left neural foraminal stenosis. There is no central canal stenosis. C3-C4: There is severe left uncovertebral joint hypertrophy. There is moderate left facet joint hyper trophy. There is moderate left neural foraminal stenosis. There is mild central canal stenosis with p osterior decompression. C4-C5: There is mild left uncovertebral joint hypertrophy. There is mild left facet joint hypertrophy . There is mild left neural foraminal stenosis. There is no central canal stenosis. C5-C6: There is severe bilateral uncovertebral joint osteoarthritis. There is mild right and severe l eft facet joint osteoarthritis. There is mild bilateral neural foraminal stenosis. There is mild cent ral canal stenosis. C6-C7: There is severe bilateral uncovertebral joint osteoarthritis. There is severe bilateral facet joint osteoarthritis. There is mild bilateral neural foraminal stenosis. There is moderate central ca nal stenosis. C7-T1: There is mild bilateral uncovertebral joint osteoarthritis. There is severe bilateral facet brad int osteoarthritis. There is mild bilateral neural foraminal stenosis. There is mild central canal st enosis. IMPRESSION: 1. No fracture. 2. Widespread sclerotic lesions of bone with worsening from 05/14/2020, consistent with metastatic dis ease. 3. Severe cervical spondylosis. 4. Posterior fusion procedure from C2 to C5. 5. Cervical dextroscoliosis. Reviewed, dictated and finalized at location A. IMPRESSION: 1. No fracture. 2. Widespread sclerotic lesions of bone with worsening from 05/14/2020, consiste nt with metastatic disease. 3. Severe cervical spondylosis. 4. Posterior fusion procedure from C2 to C5. 5. Cervical dextroscoliosis.
--- NOTE | 2022-08-10 14:24 | ECG_ITS ---
Measurements Intervals [place] Rate: 76 P: 47 [place]: 233 QRS: -41 QRSD: 113 T: 75 QT: 387 QTc: 436 Interpretive Statements SINUS RHYTHM WITH FIRST DEGREE AV BLOCK WITH OCCASIONAL VENTRICULAR PREMATURE COMPLEXES WITH OCCASIONAL SUPRAVENTRICULAR PREMAT BASELINE ARTIFACT LEFT AXIS DEVIATION PATTERN CONSISTENT WITH PULMONARY DISEASE INCOMPLETE RIGHT BUNDLE BRANCH BLOCK NONSPECIFIC ST ABNORMALITY ABNORMAL ECG COMPARED TO ECG 07/31/2021 15:32:39 FIRST DEGREE AV BLOCK NOW PRESENT LEFT-AXIS DEVIATION NOW PRESENT INCOMPLETE RIGHT BUNDLE-BRANCH BLOCK NOW PRESENT Electronically Signed On 08-10-2022 17:07:18 CDT by oRbert Bell M.D.
[2022-08-10 15:15] VITALS: BP 152/79; PULSE 124; RESP 18; TEMP 36.4; O2SAT 98
[2022-08-10 15:33] VITALS: BP 137/78; PULSE 77; RESP 21; O2SAT 97
[2022-08-10 16:04] LABS: Appearance Urine Cloudy (Clear); Bacteria Urine None Seen /hpf; Bilirubin Urine Negative (Negative); Blood Urine Negative (Negative); Color Urine Dark Yellow (Yellow); Glucose Urine UA Negative (Negative); Hyaline Casts Urine Present /lpf; Ketones Urine Negative (Negative); Leukocyte Esterase Ur Negative LEU/UL (Negative); Nitrate Urine Negative (Negative); Protein Urine 1+ mg/dL (Negative); RBC Urine 0-2 /hpf (0-2); Specific Grav Ur 1.023 (1.001-1.035); Squamous Epithelial Cell Urine None seen /hpf (Few); WBC Urine 0-5 /hpf; pH Urine 5.5 (5.0-9.0)
[2022-08-10 16:05] LABS: Add Urine Microscopic? YES
[2022-08-10 16:05] LABS: Basophils Percent Auto 0.3 % (0.2-1.2); Eosinophils Absolute Auto 0.1 K/mm3 (0-0.3); Hematocrit 37.9 % (42.0-52.0); Hemoglobin 12.3 g/dL (14.0-18.0); Immature Granulocyte Absolute 0.05 K/mm3 (0.00-0.031); Immature Granulocyte Percent A 0.6 % (0-0.5); Lymphocytes Percent Auto 10.2 % (18.3-44.2); Mean Corpuscular HGB Conc 32.5 g/dl (32-36); Mean Corpuscular Hemoglobin 32.2 pg (26-34); Mean Corpuscular Volume 99.2 fl (80-100); Mean Platelet Volume 10.4 fl (7.4-10.4); Monocytes Absolute Auto 0.7 K/mm3 (0.1-0.6); Monocytes Percent Auto 9.1 % (2.6-8.5); Neutrophils Absolute Auto 6.2 K/mm3 (1.3-6.7); Neutrophils Percent Auto 78.8 % (45.5-73.1); Platelet Count Result 207 k/mm3 (150-375); Red Blood Count 3.82 M/mm3 (4.6-6.20); Red Cell Distribution Width 13.9 % (11.5-14.5); White Blood Count 7.9 K/mm3 (4.5-10.0)
[2022-08-10 16:34] LABS: Alanine Aminotransferase 12 U/L (6-50); Albumin Level 3.5 g/dL (3.5-5.1); Alkaline Phosphatase 134 U/L (38-126); Anion Gap 3 mmol/L (8-16); Aspartate Amino Transferase 24 U/L (17-59); Blood Urea Nitrogen 20 mg/dL (9-20); Calcium 8.6 mg/dL (8.4-10.2); Carbon Dioxide 34 mmol/L (22-30); Chloride 96 mmol/L (98-107); Estimated CRCL calculation 8 ml/min; Estimated Glomerular Filt Rate > 60; Glucose 98 mg/dL (65-110); Potassium 4.1 mmol/L (3.4-5.0); Sodium 133 mmol/L (137-145)
[2022-08-10 17:12] VITALS: BP 123/88; PULSE 71; RESP 20; O2SAT 98
--- NOTE | 2022-08-10 17:44 | ED.FALL ---
HPI - Fall General Chief Complaint: Fall Stated Complaint: Fall Time Seen by Provider: 08/10/22 15:19 Source: patient Mode of arrival: wheelchair Limitations: no limitations History of Present Illness HPI Narrative: 82-year-old with a history of hypertension, hypothyroidism, DM, COPD was brought in by family with complaints of fall. Patient states he might of lost balance and fell , not sure whether he passed out. He denied any chest pain or dizziness prior to the fall. States he is feeling fine and he wants to go home. MD complaint: fall Onset (ago): hour(s) (1) Fall from: standing Fall witnessed: yes, by family Loss of consciousness: unsure Prolonged down time: no Symptoms prior to fall: none Related Data Home Medications Medication Instructions Recorded Confirmed metformin 500 mg tablet,extended 1,000 mg PO DAILY@1700 09/28/19 12/10/20 release 24 hr meloxicam 15 mg tablet 15 mg PO DAILY 05/14/20 12/10/20 oxycodone-acetaminophen 5 mg-325 1 tablet PO Q6H PRN Pain 05/14/20 12/10/20 mg tablet Allergies Allergy/AdvReac Type Severity Reaction Status Date / Time amitriptyline Allergy Unknown Unknown Verified 08/10/22 14:14 carvedilol Allergy Unknown Unknown Verified 08/10/22 14:14 diltiazem Allergy Unknown Unknown Verified 08/10/22 14:14 Review of Systems Review of Systems: All systems reviewed & are unremarkable except as noted in HPI and below Constitutional: Constitutional: Reports no additional constitutional complaints Eyes: Eyes: Reports no additional eye complaints ENT: Reports system reviewed and no additional complaints, except as documented Cardiovascular: Cardiovascular: Reports no additional cardiovascular complaints Respiratory: Respiratory: Reports no additional respiratory complaints Gastrointestinal: Gastrointestinal: Reports no additional gastrointestinal complaints Musculoskeletal: Musculoskeletal: Reports no additional musculoskeletal complaints Integumentary/Breasts: Skin/Breast: Reports system reviewed and no additional complaints, except as docu Neurologic: Reports system reviewed and no additional complaints, except as documented Psychiatric: Psychiatric: Reports no additional psychiatric complaints PMFSH Past Medical History Medical History Basal cell carcinoma Multiple lesions excise over the years. Carpal tunnel syndrome on both sides Cervical post-laminectomy syndrome Cervical spondylosis with radiculopathy Chronic anemia Chronic obstructive pulmonary disease, unspecified Essential hypertension Hypothyroidism Non-insulin dependent type 2 diabetes mellitus Obstructive sleep apnea on CPAP Osteoarthritis Overactive bladder Prostate cancer (~2015) 35 treatments of external beam radiation. 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 Brandin Heredia at [facility]. Surgical History Surgical History History of appendectomy (~07/2017) History of arthroscopy of both shoulders History of cervical spinal surgery (~10/10/19) C3-C4 laminectomy with C2-C5 laminotomy. History of herniorrhaphy (~2015) Open left inguinal herniorrhaphy. History of lumbar fusion Anterior fusion at L2-L5. Posterior fusion at L2-S1. History of orthopedic surgery History of squamous cell carcinoma excision (~02/19/20) Excised from the scalp as detailed above. Status post laminectomy Family History Family History Mother Family history of congestive heart failure Other Diabetes mellitus Social History Social History Social History: The patient lives in his own home in [place]. His of 60 years July 14, 2019. He smoked up to 2 packs of cigarettes per day for 30 years and quit in the mid 1980s.
== END 2022-08-10 17:59 | disposition home or self-care (01) ==
PROVIDERS: Emergency Medicine; Emergency Provider Family Medicine
DX: S00.03XA Contusion of scalp, initial encounter (principal); W19.XXXA Unspecified fall, initial encounter; I10 Essential (primary) hypertension; E11.9 Type 2 diabetes mellitus without complications; J44.9 Chronic obstructive pulmonary disease, unspecified; E03.9 Hypothyroidism, unspecified; G47.33 Obstructive sleep apnea (adult) (pediatric); Z79.84 Long term (current) use of oral hypoglycemic drugs; Z79.891 Long term (current) use of opiate analgesic; Z85.46 Personal history of malignant neoplasm of prostate; Z92.3 Personal history of irradiation; Z98.1 Arthrodesis status; Z87.891 Personal history of nicotine dependence; S09.90XA Unspecified injury of head, initial encounter
CPT/HCPCS: 36415; 70450; 71046; 72125; 80053; 81001; 85025; 93005; 99284

== ENCOUNTER 2022-08-18 13:40 | Inpatient (IN) | payer MEDICARE, SELFPAY ==
[2022-08-18] VITALS (18 sets, daily range): BP systolic 92–133; BP diastolic 52–94; PULSE 88–100; RESP 12–24; TEMP 36.3–36.9; O2SAT 91–100; BMI 25.5
--- NOTE | ~2022-08-18 | CT_ITS ---
EXAMINATION: CT cervical spine wo con DATE: 08/18/2022 14:20 INDICATION: Neck pain after trauma TECHNIQUE: Computed tomography (CT) of the cervical spine was performed without intravenous contrast. The dose-length product was 559 mGy-cm. Automated exposure control and iterative reconstruction tech Futonque were employed. COMPARISON: CT dated 08/10/2022 FINDINGS: There are multiple sclerotic lesions of the bones, consistent with metastatic disease. Smal l left mastoid effusion. Stable degenerative anterolisthesis at C3-4. There is significantly decreased disc height at C5-6 and C6-7 and mildly decreased height at C7-T1. There are posterior fusion changes at C2-C5. There are la minectomies at C3 and C4. There is atherosclerosis. No evidence for perched facet. Craniovertebral ju nction is normal. IMPRESSION: 1. No acute abnormality of the cervical spine. 2: Severe cervical spondylosis with posterior fusion at C2-C5. 3: Widespread sclerotic metastases. Reviewed, dictated and finalized at location A.
--- NOTE | ~2022-08-18 | NM_ITS ---
EXAMINATION: NM april stress w perfusion DATE: 08/21/2022 13:20 INDICATION: Elevated troponin TECHNIQUE: Rest images were obtained following intravenous administration of 9.5 mCi Tc99m tetrofosmi n (Myoview). The patient was infused intravenously with Lexiscan (Regadenoson). Then, 25.9 mCi Tc99m tetrofosmin (Myoview) was administered intravenously, and stress images were obtained. Data was recon structed into short axis and horizontal and vertical long axis SPECT images. Gated SPECT images were also obtained. COMPARISON: None. FINDINGS: Moderate-sized moderate severity nonreversible perfusion defect involving the apical, apica l lateral, inferoapical, mid inferolateral and mid inferior segments consistent with infarct. No reve rsible perfusion abnormalities to suggest ischemia. There is normal left ventricular chamber size. T here is decreased wall motion along the inferior and inferolateral wall with mildly decreased left ve ntricular ejection fraction measures 47%. IMPRESSION: 1. Moderate-sized moderate severity nonreversible infarct involving the apical, apical lateral, apica l inferior, mid inferolateral and mid inferior segments. No reversible ischemia. 2. Mildly decreased left ventricular ejection fraction measuring 47%. Reviewed, dictated and finalized at location A. IMPRESSION: 1. Moderate-sized moderate severity nonreversible infarct involving the apical, apical lateral, apical inferior, mid inferolateral and mid inferior segments. No reversible ischemia. 2. Mildly decreased left ventricular ejection fraction measuring 47%.
--- NOTE | ~2022-08-18 | US_ITS ---
Abdominal Sonogram: Real-time sonographic imaging of the abdomen was performed. Clinical History: Abnormal LFTs Findings: The liver appears normal with no evidence of mass lesion or bile duct dilatation. Main por winnie vein demonstrates normal direction of flow. The spleen is normal in size without evidence of foca l lesion. The gallbladder is well distended, and contains gallbladder sludge. The common bile duct m easures 7 mm. The visualized pancreas, aorta, and IVC are unremarkable. The right kidney measures 8 .7 cm in length and the left kidney measures 9.9 cm. There is no hydronephrosis or renal calculus. Impression: Gallbladder sludge. Common bile duct is upper limits of normal in size given patient age. Reviewed, dictated and finalized at location M. Impression: Gallbladder sludge. Common bile duct is upper limits of normal in size given patient age.
--- NOTE | ~2022-08-18 | CT_ITS ---
EXAMINATION: CT brain wo con DATE: 08/18/2022 14:20 INDICATION: Head trauma TECHNIQUE: Computed tomography (CT) of the head was performed without intravenous contrast. The mA wa s adjusted according to patient size. Iterative reconstruction technique was employed. Exam dose: 68 1.00 mGy-cm total exam DLP. COMPARISON: August 10, 2022 CT brain FINDINGS: Bilateral vertebral artery, basilar artery and bilateral carotid siphon internal carotid ar nicole calcifications. There is nonspecific diminished attenuation of the cerebral white matter, likely due to chronic small vessel ischemic changes. Bilateral basal ganglia calcifications. Moderate cerebellar and central and cortical cerebral atrophy. No intracranial mass lesion or hemorrhage or cerebellar or cerebrovascular infarct is evident. No sub dural or epidural hematoma. Small fluid level in the dependent left sphenoid sinus. The paranasal sinuses and mastoid air cells a re otherwise unremarkable. No fracture or bone destruction of the cranial vault. IMPRESSION: No skull fracture or acute intracranial finding Cerebral atherosclerosis and chronic small vessel ischemic changes of the cerebral white matter Reviewed, dictated and finalized at Location A. Reviewed, dictated and finalized at location L. IMPRESSION: No skull fracture or acute intracranial finding Cerebral atherosclerosis and chronic small vessel ischemic changes of the cereb ral white matter
--- NOTE | ~2022-08-18 | US_ITS ---
EXAMINATION: US venous doppler [facility] DATE: 08/23/2022 15:07 INDICATION: Swelling . TECHNIQUE: Grayscale images without and with compression and Doppler images of the bilateral lower ex tremity veins were obtained. COMPARISON: None FINDINGS: The right common femoral vein, profunda (deep) femoral vein, femoral vein, popliteal vein, peroneal v ein, posterior tibial veins, gastrocnemius vein, and greater saphenous vein are patent. The left common femoral vein, profunda (deep) femoral vein, femoral vein, popliteal vein, peroneal v ein, posterior tibial veins, gastrocnemius vein, and greater saphenous vein are patent. IMPRESSION: 1. Patent bilateral lower extremity veins. No evidence of deep venous thrombosis. Reviewed, dictated and finalized at location K. IMPRESSION: 1. Patent bilateral lower extremity veins. No evidence of deep venous thrombos is.
--- NOTE | ~2022-08-18 | CT_ITS ---
EXAMINATION: CTA chest PE protocol DATE: 08/18/2022 16:11 INDICATION: Elevated d-dimer. Recent fall. TECHNIQUE: Computed tomography angiography (CTA) of the chest was performed with 100 mL Omnipaque-350 intravenous contrast timed to evaluate the pulmonary arteries. Coronal maximum intensity projection 3D-reconstructions were created by the technologist. Automated exposure control and iterative reconst ruction technique were employed. Exam dose: 333.00 mGy-cm total exam DLP. COMPARISON: August 10, 2022 AP and lateral chest FINDINGS: There is diagnostic contrast enhancement of the pulmonary arteries and no evidence of pulmo nary embolism. Thoracic aortic aneurysm; the posterior aortic arch measures up to 3.5 cm diameter. The ascending aor ta and anterior aortic arch measure within normal limits. The descending thoracic aorta measures up t o approximately 3.1 cm diameter. There is atherosclerotic calcification of the aorta, great vessels a nd coronary arteries. Cardiomegaly. No pericardial effusion. No hilar or mediastinal mass lesion or lymphadenopathy. Fluid level in the esophagus suggesting gastroesophageal reflux. Is mild patchy posterior segment right upper lobe infiltrate, minimal dependent right lower lobe atel ectasis. There is extensive osteosclerotic metastatic disease in the axial skeleton, including numerous osteos clerotic metastases of the thoracic and lumbar spine, bilateral ribs, sternum, shoulder girdles, incl uding cap clavicles and scapulae, proximal humeral bones. Neurotransmitter leads are noted in the dorsal thoracic spinal canal. IMPRESSION: No evidence of pulmonary embolism Patchy posterior segment right upper lobe infiltrate, minimal dependent right lower lobe atelectasis Mild thoracic aortic aneurysm Extensive osteosclerotic metastatic disease, likely due to prostate cancer Reviewed, dictated and finalized at Location A. Reviewed, dictated and finalized at location L. IMPRESSION: No evidence of pulmonary embolism Patchy posterior segment right upper lobe infiltrate, minimal dependent right l ower lobe atelectasis Mild thoracic aortic aneurysm Extensive osteosclerotic metastatic disease, likely due to prostate cancer
--- NOTE | 2022-08-18 14:01 | ED.GENADULT ---
HPI - General Adult General Chief complaint: Fall Stated complaint: fall - head injury Time Seen by Provider: 08/18/22 13:57 History of Present Illness HPI narrative: 82 yo male presents for eval after having a fall at home. Pt states he climbed out of bed this am and fell to the ground and bumped his head. Pt also states RUE edema for an unknown duration of time. He is a poor historian Related Data Home Medications Medication Instructions Recorded Confirmed metformin 500 mg tablet,extended 1,000 mg PO DAILY@1700 09/28/19 12/10/20 release 24 hr meloxicam 15 mg tablet 15 mg PO DAILY 05/14/20 12/10/20 oxycodone-acetaminophen 5 mg-325 1 tablet PO Q6H PRN Pain 05/14/20 12/10/20 mg tablet Allergies Allergy/AdvReac Type Severity Reaction Status Date / Time amitriptyline Allergy Unknown Unknown Verified 08/18/22 13:56 carvedilol Allergy Unknown Unknown Verified 08/18/22 13:56 diltiazem Allergy Unknown Unknown Verified 08/18/22 13:56 Review of Systems Review of Systems: CONSTITUTIONAL: Denies fever, chills, or sweats. EYES: Denies visual changes, redness, or discharge. ENT: Denies rhinorrhea, congestion, sore throat, or otalgia. CARDIOVASCULAR: Denies chest pain, palpitations, or edema. RESPIRATORY: Denies cough or dyspnea. GASTROINTESTINAL: Denies abdominal pain, nausea, vomiting, or diarrhea. GENITOURINARY: Denies dysuria or hematuria. SKIN: Denies rash or itching. MUSCULOSKELETAL: Denies back pain, joint pain, or myalgia. NEUROLOGIC: Denies headache, numbness, or weakness. PSYCHIATRIC: Denies anxiety or depression. [facility] Past Medical History Medical History Basal cell carcinoma Multiple lesions excise over the years. Carpal tunnel syndrome on both sides Cervical post-laminectomy syndrome Cervical spondylosis with radiculopathy Chronic anemia Chronic obstructive pulmonary disease, unspecified Essential hypertension Hypothyroidism Non-insulin dependent type 2 diabetes mellitus Obstructive sleep apnea on CPAP Osteoarthritis Overactive bladder Prostate cancer (~2015) 35 treatments of external beam radiation. 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 Brandin Heredia at [facility]. Surgical History Surgical History History of appendectomy (~07/2017) History of arthroscopy of both shoulders History of cervical spinal surgery (~10/10/19) C3-C4 laminectomy with C2-C5 laminotomy. History of herniorrhaphy (~2015) Open left inguinal herniorrhaphy. History of lumbar fusion Anterior fusion at L2-L5. Posterior fusion at L2-S1. History of orthopedic surgery History of squamous cell carcinoma excision (~02/19/20) Excised from the scalp as detailed above. Status post laminectomy Family History Family History Mother Family history of congestive heart failure Other Diabetes mellitus Social History Social History Social History: The patient lives in his own home in [place]. His of 60 years July 14, 2019. He smoked up to 2 packs of cigarettes per day for 30 years and quit in the mid 1980s. He drinks alcohol very rarely and in moderation. No drug use. He designates his son, Tunde, as his surrogate decision maker. He wishes to be a full code. Smoking packs per day: 2 Smoking cigarettes per day: 40.0 Years smoked: 30 Smoking pack-years: 60.00 Smoking status: Never smoker Smoking end date: 05/03/85 Alcohol intake: never Substance use: never Gender identity (if verbalized by the patient): Male Sexual Orientation (if Verbalized by the Patient): Straight or Heterosexual Spiritual care concerns: No Exam Narrative: GENERAL: Well-appearing, well-nourished, and in no acute d
[2022-08-18 14:45] LABS: Basophils Percent Auto 0.1 % (0.2-1.2); Hematocrit 42.7 % (42.0-52.0); Hemoglobin 14.3 g/dL (14.0-18.0); Immature Granulocyte Absolute 0.25 K/mm3 (0.00-0.031); Immature Granulocyte Percent A 1.1 % (0-0.5); Lymphocytes Absolute Auto 0.34 K/mm3 (0.9-3.2); Lymphocytes Percent Auto 1.5 % (18.3-44.2); Mean Corpuscular HGB Conc 33.5 g/dl (32-36); Mean Corpuscular Hemoglobin 31.8 pg (26-34); Mean Corpuscular Volume 95.1 fl (80-100); Mean Platelet Volume 11.7 fl (7.4-10.4); Monocytes Absolute Auto 1.7 K/mm3 (0.1-0.6); Monocytes Percent Auto 7.4 % (2.6-8.5); Neutrophils Absolute Auto 20.3 K/mm3 (1.3-6.7); Neutrophils Percent Auto 89.9 % (45.5-73.1); Platelet Count Result 171 k/mm3 (150-375); Red Blood Count 4.49 M/mm3 (4.6-6.20); Red Cell Distribution Width 14.1 % (11.5-14.5); White Blood Count 22.6 K/mm3 (4.5-10.0)
[2022-08-18 14:54] LABS: INR 1.3; Prothrombin Time 15.8 Seconds (11.1-14.7)
[2022-08-18 14:55] LABS: Partial Thromboplastin Time 29.4 SECONDS (22.3-36.8)
[2022-08-18 14:57] LABS: Albumin Level 3.3 g/dL (3.5-5.1); Alkaline Phosphatase 329 U/L (38-126); Anion Gap 9 mmol/L (8-16); Aspartate Amino Transferase 290 U/L (17-59); Bilirubin,Total 1.3 mg/dL (0.2-1.3); Blood Urea Nitrogen 49 mg/dL (9-20); Calcium 8.5 mg/dL (8.4-10.2); Carbon Dioxide 27 mmol/L (22-30); Chloride 96 mmol/L (98-107); Estimated CRCL calculation 39 ml/min; Estimated Glomerular Filt Rate 58; Glucose 140 mg/dL (65-110); Magnesium 2.3 mg/dL (1.6-2.3); Potassium 4.5 mmol/L (3.4-5.0); Sodium 132 mmol/L (137-145)
[2022-08-18 14:59] LABS: D Dimer 3.53 ug/mL (<0.48)
[2022-08-18 15:08] LABS: Alanine Aminotransferase 201 U/L (6-50); NT Pro B Type Natriuretic Pept > 30000 pg/mL (19.9-100)
--- NOTE | 2022-08-18 17:31 | ECG_ITS ---
Measurements Intervals [place] Rate: 90 P: 18 DC: 188 QRS: -56 QRSD: 109 T: 181 QT: 425 QTc: 521 Interpretive Statements SINUS RHYTHM WITH OCCASIONAL VENTRICULAR PREMATURE COMPLEXES WITH FREQUENT SUPRAVENTRICULAR PREMATURE COMPLEXES LEFT ANTERIOR FASCICULAR BLOCK [QRS AXIS <= -45, QR IN I, RS IN II] ST DEVIATION AND MARKED T-WAVE ABNORMALITY, CONSIDER ANTEROLATERAL ISCHEMIA [-0.5+ mV T WAVE IN I/aVL/V3-V6] ST DEVIATION AND MODERATE T-WAVE ABNORMALITY, CONSIDER INFERIOR ISCHEMIA [-0.1+ mV T WAVE IN II/aVF] COMPARED TO ECG 08/10/2022 14:33:04 T-WAVE INVERSIONS NOW PRESENT Electronically Signed On 08-18-2022 18:13:03 CDT by Peg Bhatt M.D.
[2022-08-18 18:58] LABS: Creatine Kinase 5079 U/L (55-170)
--- NOTE | 2022-08-18 19:13 | PC.NURSE ---
Son reports that pt has metal in his neck from previous surgery
--- NOTE | 2022-08-18 21:00 | PM.IMHP ---
H&P: HPI History of Present Illness Date/Time: 08/18/22 21:00 Chief Complaint: fall Narrative: Patient is an 82-year-old male with past medical history of prostate cancer with bone Mets, diabetes and basal cell cancer coming in after he was brought by his family for a fall. Patient lives by himself and is fairly independent. He is able to walk by himself or uses a cane or a walker at times. Patient a week ago had tripped in his backyard and fell. He was seen in the emergency room where CT scan of his head was done which did not reveal any lesions. Patient was discharged uneventfully. He was fine for the entire week until this morning when his grandson went to see him and patient was found in his bathtub. Patient seems to be confused and is unsure of what happened to him. Patient says that he slipped and hit his head this packet his bathtub but supposedly told his son that that this happened last night. Patient otherwise is not complaining of any headache. He denies any chest pain, shortness a breath, nausea or vomiting. He denies any fever coughing shortness of breath dysuria or diarrhea. In the ER patient had workup done which showed elevated WBC of over 22. He slightly elevated D-dimer and got a CT scan of his chest which showed no pulmonary embolism, patchy posterior segment right upper lobe infiltrate and extensive osteo sclerotic metastatic disease. He had CT scan his which did not show acute lesions. Patient has elevated troponin with T-wave inversions in his lateral leads. Cardiology was consulted and recommended to continue trending his troponins. No IV heparin needed as patient was asymptomatic and did not complain of any chest pain. Review of Systems Review of Systems: no fever or weight loss no vision changes, no eye discharge no throat pain, no hoarseness, no lymphadenopathy no chest pain, no palpitations no coughing, no wheezing no abdominal pain, no diarrhea, no nausea, no vomiting no dysuria, no vaginal discharge no leg swelling, no edema no suicidal or homicidal ideation PMFSH Past Medical History Medical History Basal cell carcinoma Multiple lesions excise over the years. Carpal tunnel syndrome on both sides Cervical post-laminectomy syndrome Cervical spondylosis with radiculopathy Chronic anemia Chronic obstructive pulmonary disease, unspecified Essential hypertension Hypothyroidism Non-insulin dependent type 2 diabetes mellitus Obstructive sleep apnea on CPAP Osteoarthritis Overactive bladder Prostate cancer (~2015) 35 treatments of external beam radiation. 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 Brandin Heredia at [facility]. Surgical History Surgical History History of appendectomy (~07/2017) History of arthroscopy of both shoulders History of cervical spinal surgery (~10/10/19) C3-C4 laminectomy with C2-C5 laminotomy. History of herniorrhaphy (~2015) Open left inguinal herniorrhaphy. History of lumbar fusion Anterior fusion at L2-L5. Posterior fusion at L2-S1. History of orthopedic surgery History of squamous cell carcinoma excision (~02/19/20) Excised from the scalp as detailed above. Status post laminectomy Family History Family History Mother Family history of congestive heart failure Other Diabetes mellitus Social History Social History Social History: The patient lives in his own home in [place]. His of 60 years July 14, 2019. He smoked up to 2 packs of cigarettes per day for 30 years and quit in the mid 1980s. He drinks alcohol very rarely and in moderation. No drug use. He designates his son, Tunde, as his surrogate decision maker. He wishes to be a full
[2022-08-18 21:33] LABS: Lactate Dehydrogenase 389 U/L (120-246)
[2022-08-18 21:37] LABS: Appearance Urine Turbid (Clear); Bilirubin Urine 1+ (Negative); Blood Urine 3+ (Negative); Color Urine Dark Yellow (Yellow); Glucose Urine UA Negative (Negative); Ketones Urine Negative (Negative); Leukocyte Esterase Ur Negative LEU/UL (Negative); Mucus Urine Present /lpf; Need Manual Microscopic Reviewed; Nitrate Urine Negative (Negative); Non Pathogenic Casts >20; Protein Urine 2+ mg/dL (Negative); Squamous Epithelial Cell Urine Moderate /hpf (Few); WBC Urine 0-5 /hpf
[2022-08-18 21:38] LABS: Specific Grav Ur 1.068 (1.001-1.035)
[2022-08-18 21:40] LABS: Amorphous Sediment Urine Present; Bacteria Urine Trace /hpf
[2022-08-18 21:41] LABS: Add Urine Microscopic? YES
[2022-08-18] MEDS: SODIUM CHLORIDE 0.9% IV 1,000 ML 100 ML IV CONT (22:17)
[2022-08-18] MEDS: AZITHROMYCIN 250 MG TABLET 500 MG PO (22:19)
--- NOTE | 2022-08-18 22:32 | ADMGEN ---
This patient, Brandon Ambrose, was admitted to IMU Room 205-02. Patient/family oriented to hospital policies and general routines including ID bracelet, bed and alarms, visiting hours, pain management, procedures, bathroom and other care routines, personal items, smoking policy, room service/diet, and visiting hours. Information on how to activate the Rapid Response Team has been discussed. Patient/Family are encouraged to report perceived risks to care and to ask questions if they do not understand what they are told or what they should do.
[2022-08-18 23:19] LABS: Basophils Percent Auto 0.1 % (0.2-1.2); Hematocrit 42.1 % (42.0-52.0); Hemoglobin 14.1 g/dL (14.0-18.0); Immature Granulocyte Absolute 0.07 K/mm3 (0.00-0.031); Immature Granulocyte Percent A 0.4 % (0-0.5); Lymphocytes Absolute Auto 0.48 K/mm3 (0.9-3.2); Lymphocytes Percent Auto 2.9 % (18.3-44.2); Mean Corpuscular HGB Conc 33.5 g/dl (32-36); Mean Corpuscular Hemoglobin 31.8 pg (26-34); Mean Platelet Volume 11.6 fl (7.4-10.4); Monocytes Absolute Auto 1.1 K/mm3 (0.1-0.6); Monocytes Percent Auto 6.7 % (2.6-8.5); Neutrophils Absolute Auto 15.1 K/mm3 (1.3-6.7); Neutrophils Percent Auto 89.9 % (45.5-73.1); Platelet Count Result 167 k/mm3 (150-375); Red Blood Count 4.43 M/mm3 (4.6-6.20); Red Cell Distribution Width 13.9 % (11.5-14.5); White Blood Count 16.8 K/mm3 (4.5-10.0)
[2022-08-18 23:43] LABS: Alanine Aminotransferase 169 U/L (6-50); Albumin Level 3.2 g/dL (3.5-5.1); Alkaline Phosphatase 313 U/L (38-126); Anion Gap 4 mmol/L (8-16); Aspartate Amino Transferase 237 U/L (17-59); Bilirubin,Total 1.2 mg/dL (0.2-1.3); Blood Urea Nitrogen 52 mg/dL (9-20); Calcium 8.1 mg/dL (8.4-10.2); Carbon Dioxide 32 mmol/L (22-30); Chloride 93 mmol/L (98-107); Estimated CRCL calculation 42 ml/min; Estimated Glomerular Filt Rate 58; Glucose 113 mg/dL (65-110); Potassium 4.3 mmol/L (3.4-5.0); Sodium 129 mmol/L (137-145)
[2022-08-19] VITALS (15 sets, daily range): BP systolic 98–115; BP diastolic 50–62; PULSE 53–96; RESP 18–20; TEMP 36–37.1; O2SAT 95–98; BMI 25.5
--- NOTE | 2022-08-19 | ECHO_ITS ---
Patient Info Name: Brandon Ambrose Age: 82 years : 1940 Gender: Male Ht: 63 in Wt: 178 lbs BSA: 1.92 m2 HR: 78 bpm BP: 103 / 50 mmHg Technical Quality: Fair Exam Date: 08/19/2022 10:32 AM Exam Location: [facility] Pulmonary Exam Room: [facility] Patient Status: Inpatient Admit Date: 08/18/2022 Staff Ordering Physician: Gaby Bolton MD Poultry Raiser: Angy Mcgowan RDCS Attending Provider: Caitlyn Perla MD Referring Physician: Hoang CRUZ; Exam Type: CA echo dop color flow w con Study Info Indications - ACS Complete two-dimensional, color flow and Doppler transthoracic echocardiogram is performed with contrast to opacify the left ventricle and to improve the deliniation of the left ventricle endocardial borders. Contrast/Agitated Saline Contrast/Ag. Saline: Definity Amount: 2.00 ml Administered By: Angy Mcgowan [facility] Existing IV Access: Yes IV Access Condition: patent with no signs of infiltration Summary 1. Definity contrast administered improved wall motion interpretation. 2. Left ventricular systolic function is moderately globally reduced, estimated at 35-40%. 3. Left ventricular chamber dimension is mildly enlarged. 4. There is mild concentric increased left ventricular wall thickness. 5. Left ventricular septal wall motion is abnormal with septal motion related to bundle branch block. 6. The left ventricular diastolic function is grade I diastolic dysfunction. 7. E/e' 13 is mildly elevated. 8. Left atrial chamber dimension is mildly enlarged. 9. Right atrial chamber dimension is mildly enlarged. 10. There is mild aortic valve sclerosis. 11. The mitral valve has moderately calcified annulus. 12. There is trace tricuspid valve regurgitation. 13. No pulmonary hypertension, estimated pulmonary arterial systolic pressure is 29 mmHg. Left Ventricle Definity contrast administered improved wall motion interpretation. E/e' 13 is mildly elevated. Left ventricular systolic function is moderately globally reduced, estimated at 35-40%. Left ventricular chamber dimension is mildly enlarged. There is mild concentric increased left ventricular wall thickness. Left ventricular septal wall motion is abnormal with septal motion related to bundle branch block. The left ventricular diastolic function is grade I diastolic dysfunction. Right Ventricle Right ventricular systolic function is normal and with normal TAPSE 2.3 cm. Right ventricular chamber dimension is normal. Left Atria Left atrial chamber dimension is mildly enlarged. Right Atria Right atrial chamber dimension is mildly enlarged. Aortic Valve The aortic valve is not well visualized. Cannot determine number of aortic valve leaflets. There is mild aortic valve sclerosis. There is no aortic valve stenosis. There is no aortic valve regurgitation. Pulmonic Valve There is no pulmonic regurgitation. Mitral Valve The mitral valve has moderately calcified annulus. There is no mitral valve stenosis. There is no mitral valve regurgitation. Tricuspid Valve There is trace tricuspid valve regurgitation. No pulmonary hypertension, estimated pulmonary arterial systolic pressure is 29 mmHg. Pericardium/Pleural There is no pericardial effusion. Inferior Vena Cava Normal inferior vena cava with >50% collapse upon inspiration consistent with normal right atrial pressure, 5 mmHg. Aorta The aortic root size at the sinus of
[2022-08-19 08:13] LABS: Glucose Point of Care 107 mg/dl (65-105)
[2022-08-19] MEDS: ENOXAPARIN 40 MG/0.4 ML SYRINGE SUB-Q (09:30)
[2022-08-19] MEDS: SODIUM CHLORIDE 0.9% IV 1,000 ML 100 ML IV CONT ×2 (10:01→20:10)
[2022-08-19] MEDS: PERFLUTREN LIPID MICROSPHERES 1.5 ML VIAL DILUTED TO 10 ML TOTAL VOLUME IV PUSH (10:20)
[2022-08-19 12:35] LABS: Glucose Point of Care 111 mg/dl (65-105)
--- NOTE | 2022-08-19 14:02 | PM.IMPN ---
Progress Note: A&P Assessment and Plan (1) Frequent falls: Code(s): R29.6 - Repeated falls Status: Acute Assessment and Plan: Patient found on the floor of his bathtub today, unknown it was an accident are patient had a syncopal episode. Patient has evidence of elevated WBC count up to 22 K with questionable right upper lobe infiltrate on imaging. Blood cultures have been obtained, patient will be started empirically on antibiotics. -check lactate CT scan of the head did not show any acute lesion and patient does not have any focal deficit Fall precaution Physical therapy will be consulted 08/19/2022 interval history: 82-year-old male with history of prostate cancer with mets to bone fell and was found by his family in bathroom does not remember detail, patient is [place] 5079 patient has rhabdomyolysis, and patient is dehydrated neftaly gently hydrated, patient has elevated trope but does not complaints of CP, and cardilogist is not recommending any ischemic workup, patient has elevated WBC, CTA of chest is suspicious for PNA and being treated with ceftriaxon and azithromycin, patient remains clinically stable, will have PT/OT evaluate patient once clinically stable. (2) SIRS (systemic inflammatory response syndrome): Code(s): R65.10 - Systemic inflammatory response syndrome (SIRS) of non-infectious origin without acute organ dysfunction Status: Acute Assessment and Plan: Patient with elevated WBC count of 22 K with questionable right upper lobe infiltrate on CT scan of the chest. Lactate pending. Patient will be treated empirically with antibiotics Currently he is saturating well on room air Monitor WBC count and follow blood culture results (3) ACS (acute coronary syndrome): Code(s): I24.9 - Acute ischemic heart disease, unspecified Status: Acute Assessment and Plan: Patient incidentally found to have elevated troponin to 1 with EKG showing T-wave inversions in V4 5 and 6. Patient currently denies any chest pain. Cardiology was consulted from the ER and recommended to continue trending troponins. No need for heparin drip as patient is asymptomatic. Repeat troponin already slightly lower than before. Check echo to evaluate LV function. (4) Abnormal LFTs (liver function tests): Code(s): R79.89 - Other specified abnormal findings of blood chemistry Status: Acute Assessment and Plan: Patient denies any abdominal pain however found to have elevated LFTs. -check ultrasound of the abdomen Plan Prostate cancer-patient with history of radiation in the past, imaging showing extensive sclerotic metastatic disease which are not new. -son is arranging for follow-up with patient's oncologist Dispo-monitor on telemetry -son Tunde is power of trade mark attorney -full code Subjective Date/time seen: 08/19/22 14:02 fall HPI-Narrative: Patient is an 82-year-old male with past medical history of prostate cancer with bone Mets, diabetes and basal cell cancer coming in after he was brought by his family for a fall.? Patient lives by himself and is fairly independent.? He is able to walk by himself or uses a cane or a walker at times.? Patient a week ago had tripped in his backyard and fell.? He was seen in the emergency room where CT scan of his head was done which did not reveal any lesions.? Patient was discharged uneventfully.? He was fine for the entire week until this morning when his grandson went to see him and patient was found in his bathtub.? Patient seems to be confused and is unsure of what happened to him.? Patient says that he slipped and hit his head this packet his bathtub but supposedly told his son that that this happened last night.? Patient otherwise is not complaining of any headache.? He denies any chest pain, shortness a breath, nausea or vomiting.? He denies any fever coughing shortness of breath dysuria or diarrhea.? In the ER patient had workup do
[2022-08-19 16:39] LABS: Glucose Point of Care 97 mg/dl (65-105)
[2022-08-19 20:05] LABS: Glucose Point of Care 116 mg/dl (65-105)
[2022-08-19] MEDS: AZITHROMYCIN 250 MG TABLET 500 MG PO (21:10)
[2022-08-20] VITALS (14 sets, daily range): BP systolic 92–120; BP diastolic 40–88; PULSE 71–94; RESP 16–20; TEMP 36.3–37.2; O2SAT 94–98
[2022-08-20 05:17] LABS: Creatine Kinase 911 U/L (55-170)
[2022-08-20] MEDS: SODIUM CHLORIDE 0.9% IV 1,000 ML 100 ML IV CONT ×2 (06:28→21:40)
[2022-08-20 08:20] LABS: Glucose Point of Care 92 mg/dl (65-105)
[2022-08-20] MEDS: ENOXAPARIN 40 MG/0.4 ML SYRINGE SUB-Q (09:05)
--- NOTE | 2022-08-20 11:26 | PM.IMPN ---
Progress Note: A&P Assessment and Plan (1) Frequent falls: Code(s): R29.6 - Repeated falls Status: Acute Assessment and Plan: Patient found on the floor of his bathtub , unknown it was an accident are patient had a syncopal episode. Patient has evidence of elevated WBC count up to 22 K with questionable right upper lobe infiltrate on imaging. Blood cultures have been obtained, patient started empirically on ceftriaxone azithromycin CT scan of the head did not show any acute lesion and patient does not have any focal deficit CT neck with cervical spondylosis Fall precaution Physical therapy Occupational therapy consulted CT suspicious for pneumonia Echo with low ejection fraction 35-40% grade 1 diastolic dysfunction (2) SIRS (systemic inflammatory response syndrome): Code(s): R65.10 - Systemic inflammatory response syndrome (SIRS) of non-infectious origin without acute organ dysfunction Status: Acute Assessment and Plan: Patient with elevated WBC count of 22 K with questionable right upper lobe infiltrate on CT scan of the chest. Patient will be treated empirically with antibiotics Currently he is saturating well on room air Monitor WBC count and follow blood culture results (3) ACS (acute coronary syndrome): Code(s): I24.9 - Acute ischemic heart disease, unspecified Status: Acute Assessment and Plan: Patient incidentally found to have elevated troponin to 1 with EKG showing T-wave inversions in V4 5 and 6. Patient currently denies any chest pain. Cardiology was consulted from the ER and recommended to continue trending troponins. No need for heparin drip as patient is asymptomatic. Repeat troponin already slightly lower than before. Echo with he of 35-40%. Grade 1 diastolic Elevated troponin trending down suggestive of type 2 MO likely (4) Abnormal LFTs (liver function tests): Code(s): R79.89 - Other specified abnormal findings of blood chemistry Status: Acute Assessment and Plan: Patient denies any abdominal pain however found to have elevated LFTs. Abdomen ultrasound gallbladder sludge. Common bile duct upper limit of normal in size given patient's age Plan Prostate cancer-patient with history of radiation in the past, imaging showing extensive sclerotic metastatic disease which are not new. PSA level is elevated at 195. Urology consulted -son is arranging for follow-up with patient's oncologist Dispo-monitor on telemetry -son Tunde is power of attorney lawyer -full code Rhabdomyolysis improved CK level continue to monitor DVT prophylaxis Lovenox Bacteremia Gram-positive cocci in clusters started vancomycin repeat blood culture neck Mild hyponatremia recheck and monitor Subjective Date/time seen: 08/20/22 11:26 Interval history: History reviewed floor of his path unclear etiology 82-year-old history of prostate cancer. CK elevated at 5000 CTA suspicious for pneumonia. Echocardiogram ejection fraction 35-40% grade 1 diastolic dysfunction. History of prostate cancer with bony Mets, diabetes basal cell carcinoma does by himself fairly improve independent elevate the WBC count on admission. Review of Systems Review of Systems: All systems reviewed & are unremarkable except as noted in HPI and below Exam Narrative: Patient is comfortable, NAD HEENT: eyes are clear and none icteric LUNGS: Normal respiratory effort ABD: Not distended Lower extremities: no edema SKIN: nonjaundiced Neuro: grossly intact. Objective Data Vital Signs Vital Signs: Vital Signs - 24 hr 08/19/22 11:49 08/19/22 12:00 08/19/22 14:00 Temperature 97.1 F L Pulse Rate 89 84 88 Respiratory Rate 20 Blood Pressure 107/61 Pulse Oximetry 95 08/19/22 16:16 08/19/22 16:00 08/19/22 18:00 Temperature 98.3 F Pulse Rate 53 L 92 90 Respiratory Rate 20 Blood Pressure 107/54 L Pulse Oximetry 98 08/19/22 20:00 08/19/22 20:00 08/19/22 22:00
[2022-08-20 11:43] LABS: Glucose Point of Care 152 mg/dl (65-105)
[2022-08-20 11:44] LABS: Basophils Percent Auto 0.1 % (0.2-1.2); Eosinophils Absolute Auto 0.1 K/mm3 (0-0.3); Eosinophils Percent Auto 0.9 % (0-4.4); Hemoglobin 11.4 g/dL (14.0-18.0); Immature Granulocyte Absolute 0.03 K/mm3 (0.00-0.031); Immature Granulocyte Percent A 0.4 % (0-0.5); Lymphocytes Absolute Auto 0.74 K/mm3 (0.9-3.2); Lymphocytes Percent Auto 10.9 % (18.3-44.2); Mean Corpuscular HGB Conc 32.6 g/dl (32-36); Mean Corpuscular Hemoglobin 32.4 pg (26-34); Mean Corpuscular Volume 99.4 fl (80-100); Mean Platelet Volume 12.3 fl (7.4-10.4); Monocytes Absolute Auto 0.8 K/mm3 (0.1-0.6); Monocytes Percent Auto 11.7 % (2.6-8.5); Neutrophils Absolute Auto 5.2 K/mm3 (1.3-6.7); Platelet Count Result 118 k/mm3 (150-375); Red Blood Count 3.52 M/mm3 (4.6-6.20); White Blood Count 6.8 K/mm3 (4.5-10.0)
[2022-08-20 12:01] LABS: Alanine Aminotransferase 91 U/L (6-50); Albumin Level 2.3 g/dL (3.5-5.1); Alkaline Phosphatase 215 U/L (38-126); Anion Gap 2 mmol/L (8-16); Aspartate Amino Transferase 100 U/L (17-59); Bilirubin,Total 0.8 mg/dL (0.2-1.3); Blood Urea Nitrogen 38 mg/dL (9-20); Calcium 7.5 mg/dL (8.4-10.2); Carbon Dioxide 28 mmol/L (22-30); Chloride 98 mmol/L (98-107); Estimated CRCL calculation 55 ml/min; Estimated Glomerular Filt Rate > 60; Glucose 84 mg/dL (65-110); Potassium 4.2 mmol/L (3.4-5.0); Sodium 128 mmol/L (137-145)
--- NOTE | 2022-08-20 12:59 | PC.NURSE ---
This patient, Brandon Ambrose, was received from [imu [id number]] on 08/20/22 at 1255. Patient/family oriented to unit policies and routines. Report from [place].
--- NOTE | 2022-08-20 13:13 | WPDURCON ---
Assessment and Plan Assessment and plan (1) Prostate cancer metastatic to bone: Code(s): C61 - Malignant neoplasm of prostate; C79.51 - Secondary malignant neoplasm of bone Status: Acute Assessment and Plan: Patient will need to resume his Eligard in the office to decrease PSA and improve bone pain. We had recommend use of oral oncolytics in the past such as Xtandi which he refused, at this time we will recommend this in combination with Eligard if he agrees to proceed. We would start when he is discharged from the hospital then repeat the PSA in 6 weeks. Urology Consult Note HPI Date Seen: 08/20/22 Time Seen: 10:30 Requesting Physician: Caitlyn Perla MD Primary Care Provider: PHYSICIAN NOT ON STAFF Consult Narrative Reason for consult: Metastatic Prostate Cancer Narrative: Brandon Ambrose is a 82 year old male who presented to the ER after a fall at home on 08/18 when he hit his head. He is a known prostate cancer patient to our practice who see's Dr. Skinner. He has metastatic disease and was initially diagnosed in 08/2015. His prostate biopsy at that time resulted in a Kem[place] score of 9 with 12 out of 12 cores positive. He started treatment in October of 2015 with IMRT and ADT. He was recommended to also take oral oncolytics but declined. His last Eligard injection was held in 05/25 d/t severe fatigue. His PSA in 05/25 was 25. He was intended to have further workup for Fatigue as Dr. Skinner didn't think that was related to the medications. However, he didn't follow up as recommended. He c/o neck, hip, back and knee pain at this time. HIs PSA at this time has unfortunately risen to 195 and CTA was done on 08/18/22 showing extensive osteosclerotic metastatic disease related to prostate cacner. Review of Systems Cardiovascular: Cardiovascular: Denies chest pain Respiratory: Respiratory: Reports no additional respiratory complaints Gastrointestinal: Gastrointestinal: Denies abdominal pain, Denies nausea and Denies vomiting Genitourinary: Genitourinary: Denies hematuria, Denies dysuria, Denies flank pain, Denies urinary frequency and Denies urinary hesitancy Musculoskeletal: Musculoskeletal: Reports back pain, Reports myalgias, Reports arthralgias, Reports limited range of motion and Reports neck pain PMFSH Past Medical History Medical History Basal cell carcinoma Multiple lesions excise over the years. Carpal tunnel syndrome on both sides Cervical post-laminectomy syndrome Cervical spondylosis with radiculopathy Chronic anemia Chronic obstructive pulmonary disease, unspecified Essential hypertension Hypothyroidism Non-insulin dependent type 2 diabetes mellitus Obstructive sleep apnea on CPAP Osteoarthritis Overactive bladder Prostate cancer (~2015) 35 treatments of external beam radiation. 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in Heredia at [facility]. Surgical History Surgical History History of appendectomy (~07/2017) History of arthroscopy of both shoulders History of cervical spinal surgery (~10/10/19) C3-C4 laminectomy with C2-C5 laminotomy. History of herniorrhaphy (~2015) Open left inguinal herniorrhaphy. History of lumbar fusion Anterior fusion at L2-L5. Posterior fusion at L2-S1. History of orthopedic surgery History of squamous cell carcinoma excision (~02/19/20) Excised from the scalp as detailed above. Status post laminectomy Family History Family History Mother Family history of congestive heart failure Other Diabetes mellitus Social History Social History Social History: The patient lives in his own home in [place]. His of 60 years July 14, 2019. He smok
--- NOTE | 2022-08-20 15:50 | PM.CNCAR ---
Assessment and Plan Assessment and plan (1) Cardiomyopathy: Code(s): I42.9 - Cardiomyopathy, unspecified Status: Acute Assessment and Plan: EF 35 - 40% on echo. This is a new diagnosis. Initiate GDMT with Entresto, spironolactone, and jardiance p.o. furosemide Daily weights CHF counseling (2) Elevated troponin: Code(s): R77.8 - Other specified abnormalities of plasma proteins Status: Acute Assessment and Plan: Troponins elevated at 1.050, 0.960, 0.960. This pattern is not consistent with ACS and patient is not having any chest pain. He did have T wave inversions on his EKG in leads V3 - V6. I discussed possible stress testing with the patient and the son at bedside. Reviewed risks and benefits of nuclear stress testing. Given his diagnosis of prostate ca with bone mets, unsure of prognosis and goals of care. However, patient states he wishes to proceed with stress testing during this hospitalization and would pursue angiogram if indicated and recommended based on stress test results. Will plan for lexiscan tomorrow. History of Present Illness History of Present Illness Consult date/time: 08/20/22 15:50 Requesting physician: Yariel Deal MD Consult reason: Other (elevated troponin, abnormal echo) Reason For Visit: Closed Head Injury/NSTEMI/Dehydration/Prerenal Azo Narrative: Mr. Ambrose Is an 82-year-old male with a history of prostate cancer with metastasis to the bone. We are being asked to see him because of reduced ejection fraction and elevated troponins. This is a patient to presented to the hospital following a fall at home. Patient states he fell as he was trying to get up from a the toilet and fell into his bathtub. He laid in the bathtub for about 4 hours before someone was able to help get him up. He denies losing consciousness but states that he lost his balance when he stood up from a seated position. An echocardiogram was performed and revealed an ejection fraction of 35-40%. he denies any history of heart failure, coronary artery disease, arrhythmias but he does state that he has a leaky valve. His troponin levels were drawn during his initial workup and were found to be elevated. He denies having any chest pain at the time of his presentation to the hospital and denies any chest pain now. he does endorse lower extremity swelling as well as exertional dyspnea and orthopnea. Review of Systems Review of Systems: All systems reviewed & are unremarkable except as noted in HPI and below PMFSH Past Medical History Medical History Basal cell carcinoma Multiple lesions excise over the years. Carpal tunnel syndrome on both sides Cervical post-laminectomy syndrome Cervical spondylosis with radiculopathy Chronic anemia Chronic obstructive pulmonary disease, unspecified Essential hypertension Hypothyroidism Non-insulin dependent type 2 diabetes mellitus Obstructive sleep apnea on CPAP Osteoarthritis Overactive bladder Prostate cancer (~2015) 35 treatments of external beam radiation. 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 Brandin Heredia at [facility]. Surgical History Surgical History History of appendectomy (~07/2017) History of arthroscopy of both shoulders History of cervical spinal surgery (~10/10/19) C3-C4 laminectomy with C2-C5 laminotomy. History of herniorrhaphy (~2015) Open left inguinal herniorrhaphy. History of lumbar fusion Anterior fusion at L2-L5. Posterior fusion at L2-S1. History of orthopedic surgery History of squamous cell carcinoma excision (~02/19/20) Excised from the scalp as detailed above. Status post laminectomy Family History Family History Mother Family history of congestive heart failur
[2022-08-20 16:54] LABS: Glucose Point of Care 87 mg/dl (65-105)
[2022-08-20] MEDS: AMOXICILLIN/CLAVULANATE K 875-125 MG TAB 1 TABLET PO (21:39)
[2022-08-20] MEDS: AZITHROMYCIN 250 MG TABLET 500 MG PO (21:39)
[2022-08-20] MEDS: SACUBITRIL/VALSARTAN 12-13 MG TABLET 1 TAB PO (21:39)
[2022-08-20 22:42] LABS: Glucose Point of Care 93 mg/dl (65-105)
[2022-08-21] VITALS (7 sets, daily range): BP systolic 92–108; BP diastolic 53–85; PULSE 54–118; RESP 14–16; TEMP 36.3–36.5; O2SAT 95–98
--- NOTE | 2022-08-21 | EST_ITS ---
Patient Info Name: Brandon Ambrose Age: 82 years : 1940 Gender: Male Ht: 69 in Wt: 182 lbs BSA: 2.02 m2 HR: 78 bpm BP: 77 / 54 mmHg Exam Date: 08/21/2022 10:32 AM Exam Location: [facility] Stress Patient Status: Inpatient Admit Date: 08/18/2022 Staff Ordering Physician: Ilana Mccoy Attending Provider: Caitlyn Perla MD Exercise Technologist: Katerine Donahue RDCS Exercise Physician: Margarito Bray MD Exam Type: CA stress april w NM Study Info Indications - ELEVATED TROPONINS A regadenoson stress test was performed. Summary 1. Sinus rhythm with left anterior superior hemiblock as well as PACs and PVCs. 2. No changes seen following Lexiscan infusion. 3. Clinically and electrocardiographically unremarkable Lexiscan stress test. 4. Myocardial perfusion imaging study to be dictated by Radiology. Protocol: Lexiscan Stress ECG Details Stage: REST Duration (min): 3 min : 49 sec HR (bpm): 71 SBP (mmHg): 77 DBP (mmHg): 54 Stage: REST Duration (min): 46 min : 55 sec HR (bpm): 80 SBP (mmHg): 77 DBP (mmHg): 54 Stage: REST Duration (min): --- HR (bpm): 82 SBP (mmHg): 77 DBP (mmHg): 54 Stage: STAGE 1 Duration (min): 1 min : 0 sec HR (bpm): 88 SBP (mmHg): 109 DBP (mmHg): 32 Stage: RECOVERY Duration (min): 1 min : 0 sec HR (bpm): 85 SBP (mmHg): 109 DBP (mmHg): 32 Stage: RECOVERY Duration (min): 2 min : 0 sec HR (bpm): 84 SBP (mmHg): 109 DBP (mmHg): 32 Stage: RECOVERY Duration (min): 3 min : 0 sec HR (bpm): 87 SBP (mmHg): 109 DBP (mmHg): 32 Stage: RECOVERY Duration (min): 4 min : 0 sec HR (bpm): 84 SBP (mmHg): 109 DBP (mmHg): 32 Stage: RECOVERY Duration (min): 4 min : 2 sec HR (bpm): 85 SBP (mmHg): 109 DBP (mmHg): 32 Rest HR: 82 bpm Peak HR: 92 bpm Rest Sys BP: 77 mmHg Peak Sys BP: 109 mmHg Max Pred HR: 137 bpm % Max Pred HR: 67 % Target HR: 116 bpm Max RPP: 10,028 bpm*mmHg Termination Reason: Completed protocol Cardiac Symptoms: None Total Time: 1 min : 0 sec Rest Engle BP: 54 mmHg Peak Engle BP: 32 mmHg Total Dose: 0.4 mg Resting ECG Sinus rhythm with left anterior superior hemiblock as well as PACs and PVCs. Stress ECG No changes seen following Lexiscan infusion. Report Signatures
[2022-08-21 06:51] LABS: Hematocrit 33.6 % (42.0-52.0); Immature Platelet Fraction Pct 9.2 % (0.9-11.2); Mean Corpuscular HGB Conc 32.7 g/dl (32-36); Mean Corpuscular Hemoglobin 31.6 pg (26-34); Mean Corpuscular Volume 96.6 fl (80-100); Mean Platelet Volume 11.7 fl (7.4-10.4); Platelet Count Result 123 k/mm3 (150-375); Red Blood Count 3.48 M/mm3 (4.6-6.20); Red Cell Distribution Width 13.6 % (11.5-14.5); White Blood Count 6.4 K/mm3 (4.5-10.0)
[2022-08-21 07:02] LABS: Alanine Aminotransferase 66 U/L (6-50); Albumin Level 2.2 g/dL (3.5-5.1); Alkaline Phosphatase 178 U/L (38-126); Anion Gap -4 mmol/L (8-16); Aspartate Amino Transferase 66 U/L (17-59); Bilirubin,Total 0.7 mg/dL (0.2-1.3); Blood Urea Nitrogen 21 mg/dL (9-20); Calcium 7.6 mg/dL (8.4-10.2); Carbon Dioxide 35 mmol/L (22-30); Chloride 100 mmol/L (98-107); Creatine Kinase 529 U/L (55-170); Estimated CRCL calculation 61 ml/min; Estimated Glomerular Filt Rate > 60; Glucose 90 mg/dL (65-110); Magnesium 1.9 mg/dL (1.6-2.3); Potassium 4.1 mmol/L (3.4-5.0); Sodium 131 mmol/L (137-145)
[2022-08-21 08:05] LABS: Glucose Point of Care 79 mg/dl (65-105)
[2022-08-21] MEDS: SODIUM CHLORIDE 0.9% IV 1,000 ML 100 ML IV CONT (08:28)
--- NOTE | 2022-08-21 10:07 | PCPTNOTE ---
The patient treatment was not able to be completed this morning. Patient out of room for testing. Will plan to continue treatment per plan of care.
--- NOTE | 2022-08-21 10:22 | PCOTNOTE ---
Attempted to see pt. for occupational therapy evaluation. Pt. away for stress test at this time. Nursing aware.
--- NOTE | 2022-08-21 10:53 | PCSTNOTE ---
Communication evaluation completed. Unsure of need to continue as patient is improving yet still exhibits some confusion/cognitive deficits. Please advise about continuing or allowing time to improve as medical status improves.
[2022-08-21] MEDS: AMOXICILLIN/CLAVULANATE K 875-125 MG TAB 1 TABLET PO ×2 (13:05→21:21)
[2022-08-21] MEDS: EMPAGLIFLOZIN 10 MG TABLET PO (13:05)
[2022-08-21] MEDS: SACUBITRIL/VALSARTAN 12-13 MG TABLET 1 TAB PO ×2 (13:05→21:22)
[2022-08-21] MEDS: ENOXAPARIN 40 MG/0.4 ML SYRINGE SUB-Q (13:05)
[2022-08-21] MEDS: FUROSEMIDE 40 MG TABLET PO (13:05)
[2022-08-21] MEDS: SPIRONOLACTONE 12.5 MG TABLET PO (13:05)
--- NOTE | 2022-08-21 16:28 | PM.PNCARD ---
Progress Note: A&P Assessment and Plan (1) Elevated troponin: Code(s): R77.8 - Other specified abnormalities of plasma proteins Status: Acute Plan 82-year-old man with: Noninvasive evidence of coronary disease and previous anteroapical infarction. The patient has no active symptoms of myocardial ischemia and no ischemic burden noted on his stress test. Discussed this in detail with the patient and his family. We should operate under the assumption that the patient has coronary disease and a previous infarction of this segment. Today I am simply going to recommend adding low-dose aspirin and rosuvastatin to his regimen for these reasons. The patient's blood pressure is marginal and so at this point I would not add vasodilators or beta blockers particularly since he is asymptomatic weak elderly gentleman with metastatic prostate cancer. Margarito Bray MD [facility] Subjective Date/time seen: Date of service: 08/21/22 16:28 Interval history: Follow-up visit in this 82-year-old man with: Elevated troponin level drawn for unclear reasons. He presented to the hospital after falling in his home and being brought to the emergency room. No symptoms compatible with acute coronary syndrome. Troponin level was mildly elevated. This led to consultation and Lexiscan nuclear stress test be performed earlier today. Patient is comfortable back in his room recovering from his stress test in visiting with family. Again has no cardiovascular complaints Exam Const: General: comfortable and no acute distress Other: Very pleasant elderly man no distress HENMT: Mouth: Yes moist mucous membranes Eyes: Sclera: sclerae normal Neck: Neck: supple and no JVD Resp: Effort & Inspection: normal respiratory effort Auscultation: clear to auscultation bilaterally Cardio: Rate: regular rate Rhythm: regular rhythm GI: GI Palp: Yes Soft to palpation Auscultation: normal bowel sounds Skin: General skin exam: normal color Neuro: Other: Alert and oriented x3 Objective Data Vital Signs Vital Signs: Vital Signs - 24 hr 08/20/22 16:30 08/20/22 20:00 08/20/22 23:53 Temperature 36.5 C 36.3 C L 36.7 C Pulse Rate 91 88 77 Respiratory Rate 17 16 18 Blood Pressure 114/75 92/76 L 109/57 L Pulse Oximetry 94 98 97 Oxygen Delivery 08/20/22 20:00 08/20/22 20:00 08/21/22 00:00 Temperature Pulse Rate 77 94 78 Respiratory Rate 18 Blood Pressure Pulse Oximetry 97 Oxygen Delivery Room Air 08/21/22 04:00 08/21/22 04:00 08/21/22 08:00 Temperature 36.3 C L 36.5 C Pulse Rate 78 54 L 79 Respiratory Rate 14 16 Blood Pressure 92/53 L 99/59 L Pulse Oximetry 98 96 Oxygen Delivery 08/21/22 09:05 08/21/22 09:05 08/21/22 12:00 Temperature Pulse Rate 69 83 Respiratory Rate Blood Pressure Pulse Oximetry Oxygen Delivery Room Air Intake/Output Intake/Output: Intake & Output 08/18/22 08/19/22 08/20/22 08/21/22 23:59 23:59 23:59 23:59 Intake Total 150 5217 4150 1000 Output Total 800 2180 1450 Balance 150 4417 1970 -450 Meds/Results Medications: Active Medications Generic Name Dose Route Start Last Admin Trade Name Freq PRN Reason Stop Dose Admin Amoxicillin/Clavulanate Potassium 1 tablet 08/20/22 21:00 08/21/22 13:05 Amoxicillin/Clavulanate K 875-125 Mg Tab PO 08/25/22 09:01 1 tablet Q12HR AKIKO Administration Azithromycin 500 mg 08/18/22 22:00 08/20/22 21:39 Azithromycin 250 Mg Tablet PO 08/22/22 22:01 500 mg Q24H AKIKO Administration Dextrose 12.5 gm 08/18/22 21:32 Dextrose 50% 25 Gm/50 Ml Syringe IV PUSH PRN PRN Hypoglycemia Protocol Empagliflozin 10 mg 08/21/22 09:00 08/21/22 13:05 Empagliflozin 10 Mg Tablet PO 10 mg DAILY AKIKO Administration Enoxaparin Sodium 40 mg 08/19/22 09:00 08/21/22 13:05 Enoxaparin 40 Mg/0.4 Ml Syringe SUB-Q 40 mg DAILY AKIKO Administration Furosemide 40 mg 08/21/22 09:
--- NOTE | 2022-08-21 16:28 | PM.IMPN ---
Progress Note: A&P Assessment and Plan (1) Frequent falls: Code(s): R29.6 - Repeated falls Status: Acute Assessment and Plan: Patient found on the floor of his bathtub , unknown it was an accident are patient had a syncopal episode. Patient has evidence of elevated WBC count up to 22 K with questionable right upper lobe infiltrate on imaging. Blood cultures have been obtained, patient started empirically on ceftriaxone azithromycin CT scan of the head did not show any acute lesion and patient does not have any focal deficit CT neck with cervical spondylosis Fall precaution Physical therapy Occupational therapy consulted CT suspicious for pneumonia Echo with low ejection fraction 35-40% grade 1 diastolic dysfunction (2) SIRS (systemic inflammatory response syndrome): Code(s): R65.10 - Systemic inflammatory response syndrome (SIRS) of non-infectious origin without acute organ dysfunction Status: Acute Assessment and Plan: Patient with elevated WBC count of 22 K with questionable right upper lobe infiltrate on CT scan of the chest. Patient will be treated empirically with antibiotics Currently he is saturating well on room air Monitor WBC count and follow blood culture results (3) ACS (acute coronary syndrome): Code(s): I24.9 - Acute ischemic heart disease, unspecified Status: Acute Assessment and Plan: Patient incidentally found to have elevated troponin to 1 with EKG showing T-wave inversions in V4 5 and 6. Patient currently denies any chest pain. Cardiology was consulted from the ER and recommended to continue trending troponins. No need for heparin drip as patient is asymptomatic. Repeat troponin already slightly lower than before. Echo with he of 35-40%. Grade 1 diastolic Elevated troponin trending down suggestive of type 2 CT likely cardiology consulted: stress test today with EF 47%, Moderate-sized moderate severity nonreversible infarct involving the apical, apical lateral, apical inferior, mid inferolateral and mid inferior segments. No reversible ischemia. med mgmt as directed or suggested by cardiology (4) Abnormal LFTs (liver function tests): Code(s): R79.89 - Other specified abnormal findings of blood chemistry Status: Acute Assessment and Plan: Patient denies any abdominal pain however found to have elevated LFTs. Abdomen ultrasound gallbladder sludge. Common bile duct upper limit of normal in size given patient's age Plan Prostate cancer-patient with history of radiation in the past, imaging showing extensive sclerotic metastatic disease which are not new. PSA level is elevated at 195. Urology consulted -son is arranging for follow-up with patient's oncologist Dispo-monitor on telemetry -son Tunde is power of research attorney -full code Rhabdomyolysis improved CK level continue to monitor DVT prophylaxis Lovenox Bacteremia Gram-positive cocci in clusters started vancomycin repeat blood culture pending. came back as staph hominis 06/06. repeat cultures has been negative. Mild hyponatremia recheck and monitor Subjective Date/time seen: 08/21/22 16:28 Interval history: no overnigght events, went for stres test today. reports some confusion. memory issues. no other compalitns. no sob,chest pain. no leg swelling. Review of Systems Review of Systems: All systems reviewed & are unremarkable except as noted in HPI and below Exam Narrative: Patient is comfortable, NAD HEENT: eyes are clear and none icteric LUNGS: Normal respiratory effort, clear to auscultation ABD: Not distended, soft, nontender Lower extremities: no edema cyanosis or clubbing SKIN: nonjaundiced Neuro: grossly intact. Objective Data Vital Signs Vital Signs: Vital Signs - 24 hr 08/20/22 16:30 08/20/22 20:00 08/20/22 23:53 Temperature 97.7 F 97.3 F L 98.0 F Pulse Rate 91 88 77 Respiratory Rate 17 16 18 Blood Pressure 114/75 92/76 L 109/57 L Pulse Oximetry 94
[2022-08-21 16:58] LABS: Glucose Point of Care 56 mg/dl (65-105)
[2022-08-21 17:26] LABS: Glucose Point of Care 118 mg/dl (65-105)
[2022-08-21] MEDS: AZITHROMYCIN 250 MG TABLET 500 MG PO (21:21)
[2022-08-21 21:26] LABS: Glucose Point of Care 136 mg/dl (65-105)
[2022-08-22] VITALS (10 sets, daily range): BP systolic 89–112; BP diastolic 52–79; PULSE 78–110; RESP 12–20; TEMP 36.1–36.5; O2SAT 92–99
[2022-08-22] MEDS: LEVOTHYROXINE SODIUM 50 MCG TABLET PO (06:13)
[2022-08-22 07:45] LABS: Alanine Aminotransferase 58 U/L (6-50); Albumin Level 2.4 g/dL (3.5-5.1); Alkaline Phosphatase 173 U/L (38-126); Anion Gap -1 mmol/L (8-16); Aspartate Amino Transferase 55 U/L (17-59); Bilirubin,Total 0.8 mg/dL (0.2-1.3); Blood Urea Nitrogen 19 mg/dL (9-20); Calcium 7.9 mg/dL (8.4-10.2); Carbon Dioxide 34 mmol/L (22-30); Chloride 96 mmol/L (98-107); Creatine Kinase 373 U/L (55-170); Estimated CRCL calculation 61 ml/min; Estimated Glomerular Filt Rate > 60; Glucose 89 mg/dL (65-110); Magnesium 1.9 mg/dL (1.6-2.3); Potassium 3.8 mmol/L (3.4-5.0); Sodium 129 mmol/L (137-145)
[2022-08-22 08:23] LABS: Vancomycin Trough 11.4 ug/mL (10.0-20.0)
[2022-08-22 08:38] LABS: Glucose Point of Care 107 mg/dl (65-105)
[2022-08-22] MEDS: ROSUVASTATIN 5 MG TABLET PO (09:07)
[2022-08-22] MEDS: SACUBITRIL/VALSARTAN 12-13 MG TABLET 1 TAB PO ×2 (09:07→21:17)
[2022-08-22] MEDS: ENOXAPARIN 40 MG/0.4 ML SYRINGE SUB-Q (09:08)
[2022-08-22] MEDS: ASPIRIN 81 MG ENTERIC TABLET PO (09:08)
[2022-08-22] MEDS: SPIRONOLACTONE 12.5 MG TABLET PO (09:08)
[2022-08-22] MEDS: FUROSEMIDE 40 MG TABLET PO (09:08)
[2022-08-22] MEDS: EMPAGLIFLOZIN 10 MG TABLET PO (09:08)
[2022-08-22] MEDS: AMOXICILLIN/CLAVULANATE K 875-125 MG TAB 1 TABLET PO ×2 (09:08→21:17)
[2022-08-22] MEDS: ACETAMINOPHEN 325 MG TABLET 650 MG PO (13:31)
--- NOTE | 2022-08-22 14:29 | PM.IMPN ---
Progress Note: A&P Assessment and Plan (1) Frequent falls: Code(s): R29.6 - Repeated falls Status: Acute Assessment and Plan: Patient found on the floor of his bathtub , unknown it was an accident are patient had a syncopal episode. Patient has evidence of elevated WBC count up to 22 K with questionable right upper lobe infiltrate on imaging. Blood cultures have been obtained, patient started empirically on ceftriaxone azithromycin CT scan of the head did not show any acute lesion and patient does not have any focal deficit CT neck with cervical spondylosis Fall precaution Physical therapy Occupational therapy consulted CT suspicious for pneumonia Echo with low ejection fraction 35-40% grade 1 diastolic dysfunction Slightly dizzy in [facility] blood pressure will hold Lasix (2) SIRS (systemic inflammatory response syndrome): Code(s): R65.10 - Systemic inflammatory response syndrome (SIRS) of non-infectious origin without acute organ dysfunction Status: Acute Assessment and Plan: Patient with elevated WBC count of 22 K with questionable right upper lobe infiltrate on CT scan of the chest. Patient will be treated empirically with antibiotics Currently he is saturating well on room air Monitor WBC count and follow blood culture results (3) ACS (acute coronary syndrome): Code(s): I24.9 - Acute ischemic heart disease, unspecified Status: Acute Assessment and Plan: Patient incidentally found to have elevated troponin to 1 with EKG showing T-wave inversions in V4 5 and 6. Patient currently denies any chest pain. Cardiology was consulted from the ER and recommended to continue trending troponins. No need for heparin drip as patient is asymptomatic. Repeat troponin already slightly lower than before. Echo with he of 35-40%. Grade 1 diastolic Elevated troponin trending down suggestive of type 2 ID likely cardiology consulted: stress test today with EF 47%, Moderate-sized moderate severity nonreversible infarct involving the apical, apical lateral, apical inferior, mid inferolateral and mid inferior segments. No reversible ischemia. med mgmt as directed or suggested by cardiology Added on aspirin and rosuvastatin (4) Abnormal LFTs (liver function tests): Code(s): R79.89 - Other specified abnormal findings of blood chemistry Status: Acute Assessment and Plan: Patient denies any abdominal pain however found to have elevated LFTs. Abdomen ultrasound gallbladder sludge. Common bile duct upper limit of normal in size given patient's age LFTs continues to improve Plan Prostate cancer-patient with history of radiation in the past, imaging showing extensive sclerotic metastatic disease which are not new. PSA level is elevated at 195. Urology consulted -son is arranging for follow-up with patient's oncologist Dispo-monitor on telemetry -vira Griffiths is power of insurance defense attorney -full code Rhabdomyolysis improved CK level continue to monitor DVT prophylaxis Lovenox Bacteremia Gram-positive cocci in clusters started vancomycin repeat blood culture pending. came back as staph hominis /. repeat cultures has been negative. Will stop vancomycin Mild hyponatremia recheck and monitor Subjective Date/time seen: 08/22/22 14:29 Interval history: Feels her dizzy. Otherwise no new complaints. Aware that he needs to go to a rehab facility. No shortness of breath or chest pain minimal cough. Review of Systems Review of Systems: All systems reviewed & are unremarkable except as noted in HPI and below Exam Narrative: Patient is comfortable, NAD HEENT: eyes are clear and none icteric LUNGS: Normal respiratory effort, clear to auscultation ABD: Not distended, soft, nontender Lower extremities: no edema cyanosis or clubbing SKIN: nonjaundiced Neuro: grossly intact. Objective Data Vital Signs Vital Signs: Vital Signs - 24 hr 08/21/22 16:00 08/21/22 20:00 08/21/22 20:00 Temp
[2022-08-22 16:32] LABS: Glucose Point of Care 111 mg/dl (65-105)
[2022-08-22] MEDS: AZITHROMYCIN 250 MG TABLET 500 MG PO (21:17)
[2022-08-22 21:21] LABS: Glucose Point of Care 109 mg/dl (65-105)
[2022-08-23] VITALS (9 sets, daily range): BP systolic 92–102; BP diastolic 42–59; PULSE 73–96; RESP 14–16; TEMP 36.1–36.2; O2SAT 96–99
[2022-08-23] MEDS: LEVOTHYROXINE SODIUM 50 MCG TABLET PO (06:01)
[2022-08-23 06:13] LABS: Hematocrit 34.5 % (42.0-52.0); Hemoglobin 11.6 g/dL (14.0-18.0); Mean Corpuscular HGB Conc 33.6 g/dl (32-36); Mean Corpuscular Hemoglobin 31.4 pg (26-34); Mean Corpuscular Volume 93.5 fl (80-100); Mean Platelet Volume 11.1 fl (7.4-10.4); Platelet Count Result 170 k/mm3 (150-375); Red Blood Count 3.69 M/mm3 (4.6-6.20); Red Cell Distribution Width 13.5 % (11.5-14.5); White Blood Count 8.4 K/mm3 (4.5-10.0)
[2022-08-23 06:29] LABS: Alanine Aminotransferase 49 U/L (6-50); Albumin Level 2.5 g/dL (3.5-5.1); Alkaline Phosphatase 156 U/L (38-126); Anion Gap -3 mmol/L (8-16); Aspartate Amino Transferase 55 U/L (17-59); Bilirubin,Total 0.8 mg/dL (0.2-1.3); Blood Urea Nitrogen 18 mg/dL (9-20); Calcium 7.9 mg/dL (8.4-10.2); Carbon Dioxide 37 mmol/L (22-30); Chloride 95 mmol/L (98-107); Creatine Kinase 373 U/L (55-170); Estimated CRCL calculation 55 ml/min; Estimated Glomerular Filt Rate > 60; Glucose 89 mg/dL (65-110); Magnesium 1.7 mg/dL (1.6-2.3); Sodium 129 mmol/L (137-145)
[2022-08-23 07:54] LABS: Glucose Point of Care 105 mg/dl (65-105)
[2022-08-23] MEDS: SACUBITRIL/VALSARTAN 12-13 MG TABLET 1 TAB PO ×2 (08:32→21:21)
[2022-08-23] MEDS: AMOXICILLIN/CLAVULANATE K 875-125 MG TAB 1 TABLET PO ×2 (08:32→21:21)
[2022-08-23] MEDS: SPIRONOLACTONE 12.5 MG TABLET PO (08:32)
[2022-08-23] MEDS: EMPAGLIFLOZIN 10 MG TABLET PO (08:32)
[2022-08-23] MEDS: ROSUVASTATIN 5 MG TABLET PO (08:33)
[2022-08-23] MEDS: ASPIRIN 81 MG ENTERIC TABLET PO (08:33)
[2022-08-23] MEDS: ENOXAPARIN 40 MG/0.4 ML SYRINGE SUB-Q (08:33)
[2022-08-23 11:42] LABS: Glucose Point of Care 138 mg/dl (65-105)
[2022-08-23] MEDS: ACETAMINOPHEN 325 MG TABLET 650 MG PO (11:52)
--- NOTE | 2022-08-23 11:53 | PM.PNCARD ---
Progress Note: A&P Assessment and Plan (1) Elevated troponin: Code(s): R77.8 - Other specified abnormalities of plasma proteins Status: Acute Plan 82-year-old man with: Presumed coronary artery disease because of findings on abnormal myocardial perfusion scan suggestive of previous anteroapical/apical lateral infarction. Overall mild reduction in LV systolic function. Aspirin and statin and been recommended. Because he has soft systolic blood pressure I have elected not to start beta-melissa or vasodilators therapy in this asymptomatic elderly man. We will continue to follow while he is in the hospital. Margarito Bray MD [facility] Subjective Date/time seen: Date of service: 08/23/22 11:53 Interval history: Follow-up visit in this 82-year-old man with: Presumed diagnosis of coronary disease and previous CO based on findings of nuclear stress testing on Wednesday. Aspirin and statin have been started for this reason he is asymptomatic of cardiac complaints. Staff states he is still hospitalized because of need to determine appropriate treatment for a wound on his trunk that he has from his fall. Exam Const: General: comfortable, no acute distress, alert and awake Orientation/consciousness: patient oriented x3 Other: Very pleasant elderly man no distress HENMT: Head: normal to inspection Mouth: Yes moist mucous membranes Eyes: General: appearance normal, both eyes and all related structures Sclera: sclerae normal Pupils: Equal, round and reactive pupils present Neck: Neck: normal visual inspection, supple and no JVD Carotids: normal carotid upstroke Resp: Effort & Inspection: normal respiratory effort Auscultation: clear to auscultation bilaterally and crackles Cardio: Rate: regular rate Rhythm: regular rhythm Heart sounds: S1 normal heart sound present and S2 normal heart sound present GI: Auscultation: normal bowel sounds Skin: General skin exam: normal color Neuro: General: patient oriented x3 Cranial nerves: Yes Equal, round and reactive pupils present Other: Alert and oriented x3 Extrem: General: abnormal to inspection Other: mild bilateral pretibial edema Psych: Appearance: grossly normal Mental Status: mental status grossly normal Objective Data Vital Signs Vital Signs: Vital Signs - 24 hr 08/22/22 12:00 08/22/22 14:00 08/22/22 16:00 Temperature 36.1 C L Pulse Rate 97 87 83 Respiratory Rate 20 Blood Pressure 97/62 L Pulse Oximetry 99 08/22/22 21:23 08/22/22 20:00 08/23/22 00:00 Temperature 36.2 C L Pulse Rate 110 H 78 77 Respiratory Rate 14 Blood Pressure 112/61 Pulse Oximetry 92 08/23/22 04:00 08/23/22 05:58 Temperature 36.2 C L Pulse Rate 79 78 Respiratory Rate 14 Blood Pressure 102/42 L Pulse Oximetry 96 Intake/Output Intake/Output: Intake & Output 08/20/22 08/21/22 08/22/22 08/23/22 23:59 23:59 23:59 23:59 Intake Total 4150 1490 1810 860 Output Total 2180 1450 1350 1800 Balance 1970 40 460 -940 Meds/Results Medications: Active Medications Generic Name Dose Route Start Last Admin Trade Name Freq PRN Reason Stop Dose Admin Acetaminophen 650 mg 08/22/22 12:04 08/22/22 13:31 Acetaminophen 325 Mg Tablet PO 650 mg Q6H PRN Administration Mild Pain (1-3) or Fever Amoxicillin/Clavulanate Potassium 1 tablet 08/20/22 21:00 08/23/22 08:32 Amoxicillin/Clavulanate K 875-125 Mg Tab PO 08/25/22 09:01 1 tablet Q12HR AKIKO Administration Aspirin 81 mg 08/22/22 09:00 08/23/22 08:33 Aspirin 81 Mg Enteric Tablet PO 81 mg QAM AKIKO Administration Dextrose 12.5 gm 08/18/22 21:32 Dextrose 50% 25 Gm/50 Ml Syringe IV PUSH PRN PRN Hypoglycemia Protocol Empagliflozin 10 mg 08/21/22 09:00 08/23/22 08:32 Empagliflozin 10 Mg Tablet PO 10 mg DAILY AKIKO Administration Enoxaparin Sodium 40 mg 08/19/22 09:00 08/23/22 08:33 Enoxaparin 40 Mg/0.4 Ml Syringe SUB-Q
--- NOTE | 2022-08-23 13:07 | PM.IMPN ---
Progress Note: A&P Assessment and Plan (1) Frequent falls: Code(s): R29.6 - Repeated falls Status: Acute Assessment and Plan: Patient found on the floor of his bathtub , unknown it was an accident are patient had a syncopal episode. Patient has evidence of elevated WBC count up to 22 K with questionable right upper lobe infiltrate on imaging. Blood cultures have been obtained, patient started empirically on ceftriaxone azithromycin CT scan of the head did not show any acute lesion and patient does not have any focal deficit CT neck with cervical spondylosis Fall precaution Physical therapy Occupational therapy consulted CT suspicious for pneumonia Echo with low ejection fraction 35-40% grade 1 diastolic dysfunction Slightly dizzy with lowish blood pressure Lasix held (2) SIRS (systemic inflammatory response syndrome): Code(s): R65.10 - Systemic inflammatory response syndrome (SIRS) of non-infectious origin without acute organ dysfunction Status: Acute Assessment and Plan: Patient with elevated WBC count of 22 K with questionable right upper lobe infiltrate on CT scan of the chest. Patient will be treated empirically with antibiotics Currently he is saturating well on room air Monitor WBC count and follow blood culture results Continue antibiotics as ordered (3) ACS (acute coronary syndrome): Code(s): I24.9 - Acute ischemic heart disease, unspecified Status: Acute Assessment and Plan: Patient incidentally found to have elevated troponin to 1 with EKG showing T-wave inversions in V4 5 and 6. Patient currently denies any chest pain. Cardiology was consulted from the ER and recommended to continue trending troponins. No need for heparin drip as patient is asymptomatic. Repeat troponin already slightly lower than before. Echo with he of 35-40%. Grade 1 diastolic Elevated troponin trending down suggestive of type 2 [place] likely cardiology consulted: stress test today with EF 47%, Moderate-sized moderate severity nonreversible infarct involving the apical, apical lateral, apical inferior, mid inferolateral and mid inferior segments. No reversible ischemia. med mgmt as directed or suggested by cardiology Added on aspirin and rosuvastatin (4) Abnormal LFTs (liver function tests): Code(s): R79.89 - Other specified abnormal findings of blood chemistry Status: Acute Assessment and Plan: Patient denies any abdominal pain however found to have elevated LFTs. Abdomen ultrasound gallbladder sludge. Common bile duct upper limit of normal in size given patient's age LFTs continues to improve Plan Prostate cancer-patient with history of radiation in the past, imaging showing extensive sclerotic metastatic disease which are not new. PSA level is elevated at 195. Urology consulted -son is arranging for follow-up with patient's oncologist Dispo-monitor on telemetry -son Tunde is power of trade mark attorney -full code Rhabdomyolysis improved CK level continue to monitor DVT prophylaxis Lovenox Bacteremia Gram-positive cocci in clusters started vancomycin repeat blood culture pending. came back as staph hominis 06/06. repeat cultures has been negative. Will stop vancomycin Mild hyponatremia recheck and monitor extremity edema. Will add compression likely venous insufficiency Subjective Date/time seen: 08/23/22 13:07 Interval history: Feeling okay unchanged from yesterday. Still feel dizzy. Leg swelling present. Denies any shortness of breath or chest pain. Working with OT this morning. Review of Systems Review of Systems: All systems reviewed & are unremarkable except as noted in HPI and below Exam Narrative: Patient is comfortable, NAD HEENT: eyes are clear and none icteric LUNGS: Normal respiratory effort, clear to auscultation ABD: Not distended, soft, nontender Lower extremities: Lower extremity edema, no cyanosis or clubbing SKIN: nonjaundiced Neuro: grossly inta
[2022-08-23 16:51] LABS: Glucose Point of Care 124 mg/dl (65-105)
[2022-08-23 20:20] LABS: Glucose Point of Care 139 mg/dl (65-105)
[2022-08-24] VITALS: PULSE 75
[2022-08-24 04:00] VITALS: PULSE 77
[2022-08-24 06:00] VITALS: BP 101/57; PULSE 94; RESP 16; TEMP 35.7; O2SAT 97
[2022-08-24 06:39] LABS: Creatine Kinase 240 U/L (55-170); Magnesium 1.8 mg/dL (1.6-2.3)
[2022-08-24] MEDS: LEVOTHYROXINE SODIUM 50 MCG TABLET PO (07:23)
[2022-08-24 07:37] LABS: Glucose Point of Care 97 mg/dl (65-105)
[2022-08-24 08:00] VITALS: PULSE 84
[2022-08-24] MEDS: ROSUVASTATIN 5 MG TABLET PO (08:48)
[2022-08-24] MEDS: SACUBITRIL/VALSARTAN 12-13 MG TABLET 1 TAB PO (08:48)
[2022-08-24] MEDS: AMOXICILLIN/CLAVULANATE K 875-125 MG TAB 1 TABLET PO (08:48)
[2022-08-24] MEDS: EMPAGLIFLOZIN 10 MG TABLET PO (08:48)
[2022-08-24] MEDS: SPIRONOLACTONE 12.5 MG TABLET PO (08:48)
[2022-08-24] MEDS: ENOXAPARIN 40 MG/0.4 ML SYRINGE SUB-Q (08:49)
[2022-08-24] MEDS: ASPIRIN 81 MG ENTERIC TABLET PO (08:49)
[2022-08-24 11:42] LABS: Glucose Point of Care 140 mg/dl (65-105)
--- NOTE | 2022-08-24 12:54 | PCNFU ---
Nutrition Follow-Up Complete: Inadequate oral intake related to loss of appetite, as evidenced by 0% intake recorded Goal:Adequate PO intake at least 75% meals Maintain weight during admission Pt current nutrition is Diabetic consistent carb, Glucerna shakes BID. Nutrition recommendation: continue with current plan of care Last recorded weight is 86.7 kg - up from 78kg on admission. Bowel Motility: +BM 08/23 Labs Reviewed: alb:2.5, Hgb:11.6, HCT:34.5, NA:129 Meds Noted: lovenox, jardiance Skin: WNL Additional Notes: Pt continues on a diabetic diet, Intake 50-100% of meals, Glucerna shakes BID. Agree with diet orders. Monitoring intakes, weights labs, plan of care, supplement tolerance Follow up in 5 days
[2022-08-24 14:00] VITALS: BP 102/70; PULSE 95; RESP 16; TEMP 35.8; O2SAT 100
--- NOTE | 2022-08-24 16:30 | PM.DS ---
DS: Admitting Diagnosis Discharge Date 08/24/2022 Admitting Diagnosis Fall DS: Discharge Diagnosis Discharge Diagnosis (1) Frequent falls: Code(s): R29.6 - Repeated falls Status: Acute (2) SIRS (systemic inflammatory response syndrome): Code(s): R65.10 - Systemic inflammatory response syndrome (SIRS) of non-infectious origin without acute organ dysfunction Status: Acute (3) ACS (acute coronary syndrome): Code(s): I24.9 - Acute ischemic heart disease, unspecified Status: Acute (4) Abnormal LFTs (liver function tests): Code(s): R79.89 - Other specified abnormal findings of blood chemistry Status: Acute DS: Summary Hospital Course Hospital Course: # frequent falls: Patient found on the floor of his bathtub , unknown it was an accident are patient had a syncopal episode.? Patient has evidence of elevated WBC count up to 22 K with questionable right upper lobe infiltrate on imaging.?Blood cultures have been obtained, patient started empirically on ceftriaxone azithromycin CT scan of the head did not show any acute lesion and patient does not have any focal deficit CT neck with cervical spondylosis Fall precaution Physical therapy Occupational therapy consulted CT chest suspicious for pneumonia. Continue Augmentin at discharge until 08/25/2022 Echo with low ejection fraction 35-40% grade 1 diastolic dysfunction Blood pressure low this and hence Lasix held on spironolactone Compression stockings for venous insufficiency related leg swelling. Ultrasound duplex was negative. # sIRS (systemic inflammatory response syndrome): Patient with elevated WBC count of 22 K with questionable right upper lobe infiltrate on CT scan of the chest. Patient will be treated empirically with antibiotics Currently he is saturating well on room air Monitor WBC count and follow blood culture results Continue antibiotics as ordered # elevated troponin: Patient incidentally found to have elevated troponin to 1 with EKG showing T-wave inversions in V4 5 and 6.? Patient currently denies any chest pain.? Cardiology was consulted from the ER and recommended to continue trending troponins.? No need for heparin drip as patient is asymptomatic. Repeat troponin already slightly lower than before. Echo with he of 35-40%.? Grade 1 diastolic Elevated troponin trending down suggestive of type 2 [place] likely cardiology consulted: stress test today with EF 47%,?Moderate-sized moderate severity nonreversible infarct involving the apical, apical lateral, apical inferior, mid inferolateral and mid inferior segments. No reversible ischemia. med mgmt as directed or suggested by cardiology Added on aspirin and rosuvastatin # abnormal LFTs: Patient denies any abdominal pain however found to have elevated LFTs. Abdomen ultrasound gallbladder sludge.? Common bile duct upper limit of normal in size given patient's age LFTs continues to improve # prostate cancer-patient with history of radiation in the past, imaging showing extensive sclerotic metastatic disease which are not new.? PSA level is elevated at 195.? Urology consulted -son is arranging for follow-up with patient's oncologist # dispo-monitor on telemetry -son Tunde is power of credit assistant -full code # rhabdomyolysis improved CK level continue to monitor # pressure ulceration on right side of the body wound care to see and continue dressing changes # dVT prophylaxis Lovenox # bacteremia Gram-positive cocci in clusters started vancomycin repeat blood culture pending. came back as staph hominis and Staph epidermidis 2/. repeat cultures has been negative.? Vancomycin has been stopped # mild hyponatremia recheck and monitor extremity edema.? Add compression likely venous insufficiency. Time Spent with Patient Time attestation: Total time spent providing and/or coordinating discharge services: 45 minutes Exam Narrative: Patient is comfortable, NAD HEENT: eyes are clear and none
[2022-08-24 16:40] LABS: Glucose Point of Care 163 mg/dl (65-105)
[2022-08-24] MEDS: SILVERGEL (ELTA) 45 ML 1 APPLIC TOPICAL (16:52)
== END 2022-08-24 17:05 | DRG 194 ==
LOC: ANHED 19:56 → ANHIMU 21:30 → ANH3MEDSUR 08-20 12:48
PROVIDERS: Internal Medicine; Urology; Admitting Provider Family Medicine; Emergency Provider Emergency Medicine; Visit Provider Internal Medicine
DX: J18.9 Pneumonia, unspecified organism (principal); R78.81 Bacteremia; C79.51 Secondary malignant neoplasm of bone; E87.1 Hypo-osmolality and hyponatremia; I24.9 Acute ischemic heart disease, unspecified; I42.9 Cardiomyopathy, unspecified; T79.6XXA Traumatic ischemia of muscle, initial encounter; W19.XXXA Unspecified fall, initial encounter; B96.89 Other specified bacterial agents as the cause of diseases classified elsewhere; D64.9 Anemia, unspecified; E03.9 Hypothyroidism, unspecified; E11.9 Type 2 diabetes mellitus without complications; E86.0 Dehydration; G47.33 Obstructive sleep apnea (adult) (pediatric); I10 Essential (primary) hypertension; I87.2 Venous insufficiency (chronic) (peripheral); I25.2 Old myocardial infarction; I25.10 Atherosclerotic heart disease of native coronary artery without angina pectoris; J44.9 Chronic obstructive pulmonary disease, unspecified; L89.899 Pressure ulcer of other site, unspecified stage; M19.90 Unspecified osteoarthritis, unspecified site; M47.22 Other spondylosis with radiculopathy, cervical region; N32.81 Overactive bladder; R77.8 Other specified abnormalities of plasma proteins; R29.6 Repeated falls; R79.89 Other specified abnormal findings of blood chemistry; Z85.46 Personal history of malignant neoplasm of prostate; Z92.3 Personal history of irradiation; Z79.84 Long term (current) use of oral hypoglycemic drugs; Z85.828 Personal history of other malignant neoplasm of skin; Z90.49 Acquired absence of other specified parts of digestive tract; Z98.1 Arthrodesis status; Z87.891 Personal history of nicotine dependence
CPT/HCPCS: 36415; 70450; 71275; 72125; 76700; 78452; 80053; 80202; 81001; 82550; 82948; 83615; 83735; 83880; 84153; 84484; 85025; 85027; 85055; 85380; 85610; 85730; 87040; 87077; 87081; 87186; 92523; 93005; 93017; 93306; 93970; 96365; 97110; 97116; 97161; 97165; 97530; 97535; A9270; A9502; C8929; J0131; J0696; J1650; J2785; J3370; J7030; Q9957; Q9967

== ENCOUNTER 2022-09-14 15:30 | Observation (INO) | payer MEDICARE, SELFPAY ==
[2022-09-14] VITALS (15 sets, daily range): BP systolic 104–125; BP diastolic 62–98; PULSE 72–96; RESP 15–20; TEMP 36.6–37.4; O2SAT 90–100; BMI 27.3
--- NOTE | ~2022-09-14 | US_ITS ---
EXAMINATION: US venous doppler [facility] DATE: 09/15/2022 11:47 INDICATION: Lower limb pain. TECHNIQUE: Grayscale ultrasound images without and with compression and Doppler ultrasound images of the bilateral lower extremity veins were obtained. COMPARISON: Ultrasound 08/23/2022 FINDINGS: The visualized portions of right common femoral vein, profunda (deep) femoral vein, femoral vein, pop liteal vein, peroneal veins, posterior tibial veins, and greater saphenous vein outflow are patent. The visualized portions of left common femoral vein, profunda femoral vein, femoral vein, popliteal v ein, peroneal veins, posterior tibial veins, and greater saphenous vein outflow are patent. IMPRESSION: 1. No deep venous thrombosis. Reviewed, dictated and finalized at location A.
--- NOTE | ~2022-09-14 | US_ITS ---
EXAMINATION: US arterial ankle brachial ind DATE: 09/16/2022 18:48 INDICATION: Pain in the feet and poor pulses TECHNIQUE: Segmental pressures and plethysmographic and Doppler waveforms of the brachial and lower e xtremity arteries were obtained. COMPARISON: None. FINDINGS: Right and left brachial artery pressures of 122 mm Hg and 117 mm Hg, respectively, are concordant (no rmal difference <= 30 mmHg). The right ankle-brachial index (AURORA) is 1.24 (normal >= 0.9-1.0). The right great toe-brachial index (TBI) is 0.87 (normal >= 0.65). Arterial Doppler waveforms are triphasic with brisk systolic upstroke s at both right posterior tibial and dorsalis pedis arteries. The left AURORA is 1.18. The left TBI is 0.87. Arterial Doppler waveforms are triphasic with brisk systo lic upstrokes at both left posterior tibial and dorsalis pedis arteries. IMPRESSION: 1. No significant arterial occlusive disease with normal bilateral ABIs and TBIs. Reviewed, dictated and finalized at location A. IMPRESSION: 1. No significant arterial occlusive disease with normal bilateral ABIs and TBI s.
--- NOTE | ~2022-09-14 | XR_ITS ---
EXAMINATION: XR foot RT 2V DATE: 09/15/2022 16:08 INDICATION: Right foot pain. TECHNIQUE: 2 views of right foot on 3 radiographs were obtained. COMPARISON: None. FINDINGS: Bone alignment is normal. No fracture. There is absence of head of fourth middle phalanx, w hich may be postsurgical. There is diffuse osteopenia. There is moderate osteoarthritis of first meta tarsophalangeal joint and mild osteoarthritis of many of the midfoot joints and interphalangeal joint s. There are enthesophytes at the posterior and plantar aspects of calcaneal tuberosity. IMPRESSION: 1. Polyarticular osteoarthritis. Reviewed, dictated and finalized at location A.
--- NOTE | ~2022-09-14 | XR_ITS ---
EXAMINATION: XR foot RT 2V DATE: 09/16/2022 16:52 INDICATION: Right foot pain TECHNIQUE: Dorsoplantar and lateral views of the right foot were obtained. COMPARISON: 09/15/2022 FINDINGS: Diffuse osteopenia. Osteotomy of the head of the right fourth proximal phalanx. Bone alignment is oth erwise normal. No fracture. Polyarticular osteoarthritis, moderate severity at the first metatarsopha langeal and second and third tarsal metatarsal joints and mild at many of the remaining joints in the right foot as well as at the right ankle. Prominent Achilles and plantar calcaneal enthesophytes and enthesopathic ossification. IMPRESSION: 1. Diffuse osteopenia and mild to moderate polyarticular osteoarthritis. No acute osseous abnormality . 2. Prominent enthesopathic changes at the posterior tuberosity of the calcaneus. Reviewed, dictated and finalized at location A. IMPRESSION: 1. Diffuse osteopenia and mild to moderate polyarticular osteoarthritis. No acu te osseous abnormality. 2. Prominent enthesopathic changes at the posterior tuberosity of the calcaneus .
[2022-09-14 17:38] LABS: Basophils Percent Auto 0.1 % (0.2-1.2); Eosinophils Absolute Auto 0.1 K/mm3 (0-0.3); Eosinophils Percent Auto 1.1 % (0-4.4); Hematocrit 32.8 % (42.0-52.0); Hemoglobin 10.7 g/dL (14.0-18.0); Immature Granulocyte Absolute 0.05 K/mm3 (0.00-0.031); Immature Granulocyte Percent A 0.7 % (0-0.5); Lymphocytes Absolute Auto 0.93 K/mm3 (0.9-3.2); Lymphocytes Percent Auto 12.4 % (18.3-44.2); Mean Corpuscular HGB Conc 32.6 g/dl (32-36); Mean Corpuscular Hemoglobin 32.5 pg (26-34); Mean Corpuscular Volume 99.7 fl (80-100); Mean Platelet Volume 9.8 fl (7.4-10.4); Monocytes Absolute Auto 0.8 K/mm3 (0.1-0.6); Monocytes Percent Auto 11.2 % (2.6-8.5); Neutrophils Absolute Auto 5.6 K/mm3 (1.3-6.7); Neutrophils Percent Auto 74.5 % (45.5-73.1); Platelet Count Result 190 k/mm3 (150-375); Red Blood Count 3.29 M/mm3 (4.6-6.20); Red Cell Distribution Width 14.2 % (11.5-14.5); White Blood Count 7.5 K/mm3 (4.5-10.0)
--- NOTE | 2022-09-14 17:45 | PC.NURSE ---
Kaya from care coordination contacted to help facilitate getting pt into a nursing facility.
[2022-09-14 17:50] LABS: Alanine Aminotransferase 16 U/L (6-50); Albumin Level 2.9 g/dL (3.5-5.1); Alkaline Phosphatase 230 U/L (38-126); Anion Gap 0 mmol/L (8-16); Aspartate Amino Transferase 31 U/L (17-59); Bilirubin,Total 0.5 mg/dL (0.2-1.3); Blood Urea Nitrogen 17 mg/dL (9-20); Calcium 7.6 mg/dL (8.4-10.2); Carbon Dioxide 35 mmol/L (22-30); Chloride 97 mmol/L (98-107); Creatine Kinase 50 U/L (55-170); Estimated CRCL calculation 69 ml/min; Estimated Glomerular Filt Rate > 60; Glucose 100 mg/dL (65-110); Sodium 132 mmol/L (137-145)
--- NOTE | 2022-09-14 18:36 | ED.GENADULT ---
HPI - General Adult General Chief complaint: Weakness Stated complaint: wound/ weakness Time Seen by Provider: 09/14/22 16:49 History of Present Illness HPI narrative: Patient is an 82-year-old male who presents ER for evaluation of bedsores. He has ulcerations across his right flank down past his right hip and into his thigh. He developed them all laying in a bathtub last month and was admitted to the hospital. He went to rehab and then was sent home. He has been unable to get wound care or any additional help at home caring for his wound. Home health saw him today and recommended wound care, patient has a order to go to custodial they will not allow him him until he can be seen by wound care. Patient and family are stuck and came here for further help. No oozing from the wounds. No fevers or chills or sweats. Patient has some dementia and cannot provide entire history so it was obtained from his son. Related Data Home Medications Medication Instructions Recorded Confirmed trazodone 50 mg tablet 50 mg PO HS 08/20/22 08/20/22 Allergies Allergy/AdvReac Type Severity Reaction Status Date / Time amitriptyline Allergy Unknown Unknown Verified 09/14/22 17:05 carvedilol Allergy Unknown Unknown Verified 09/14/22 17:05 diltiazem Allergy Unknown Unknown Verified 09/14/22 17:05 Review of Systems Review of Systems: ROS unobtainable: Yes unobtainable due to mental status PMFSH Past Medical History Medical History Basal cell carcinoma Multiple lesions excise over the years. Carpal tunnel syndrome on both sides Cervical post-laminectomy syndrome Cervical spondylosis with radiculopathy Chronic anemia Chronic obstructive pulmonary disease, unspecified Essential hypertension Hypothyroidism Non-insulin dependent type 2 diabetes mellitus Obstructive sleep apnea on CPAP Osteoarthritis Overactive bladder Prostate cancer (~2015) 35 treatments of external beam radiation. 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 Brandin Heredia at [facility]. Surgical History Surgical History History of appendectomy (~07/2017) History of arthroscopy of both shoulders History of cervical spinal surgery (~10/10/19) C3-C4 laminectomy with C2-C5 laminotomy. History of herniorrhaphy (~2015) Open left inguinal herniorrhaphy. History of lumbar fusion Anterior fusion at L2-L5. Posterior fusion at L2-S1. History of orthopedic surgery History of squamous cell carcinoma excision (~02/19/20) Excised from the scalp as detailed above. Status post laminectomy Family History Family History Mother Family history of congestive heart failure Other Diabetes mellitus Social History Social History Social History: The patient lives in his own home in [place]. His of 60 years July 14, 2019. He smoked up to 2 packs of cigarettes per day for 30 years and quit in the mid 1980s. He drinks alcohol very rarely and in moderation. No drug use. He designates his son, Tunde, as his surrogate decision maker. He wishes to be a full code. Smoking packs per day: 2 Smoking cigarettes per day: 40.0 Years smoked: 50 Smoking pack-years: 100.00 Smoking status: Former smoker Smoking end date: 05/03/85 Additional smoking assessment comments: quit 40 years ago Alcohol intake: never Substance use: never Lack of Transportation: No Lack of Food: Never True Current Housing: I Have Housing Concerned About Future Housing: No Difficulty Paying Gas/Electric Bills: No Difficulty Paying for Meds: No Currently Unemployed: No Education: High School Diploma/GED Difficulty w/ Childcare or Family Care: No Gender identity (if ve
[2022-09-14] MEDS: ACETAMINOPHEN 325 MG TABLET 650 MG PO (22:18)
--- NOTE | 2022-09-15 00:06 | ADMGEN ---
This patient, Brandon Ambrose, was admitted to 3 [facility] Surg Room 306-02 at 2220. Patient/family oriented to hospital policies and general routines including ID bracelet, bed and alarms, visiting hours, pain management, procedures, bathroom and other care routines, personal items, smoking policy, room service/diet, and visiting hours. Information on how to activate the Rapid Response Team has been discussed. Patient/Family are encouraged to report perceived risks to care and to ask questions if they do not understand what they are told or what they should do.
[2022-09-15] MEDS: traMADol HCL (*CRX) 25 MG TABLET PO (03:16)
[2022-09-15 05:55] VITALS: BP 102/61; PULSE 73; RESP 14; TEMP 36.1; O2SAT 98
[2022-09-15] MEDS: FUROSEMIDE 40 MG TABLET PO (09:48)
[2022-09-15] MEDS: SODIUM CHLORIDE 500 MG TABLET PO ×2 (09:48→17:47)
[2022-09-15] MEDS: DOCUSATE SODIUM 100 MG CAPSULE PO ×2 (09:48→20:04)
[2022-09-15] MEDS: ESCITALOPRAM OXALATE 10 MG TABLET PO (09:48)
[2022-09-15] MEDS: polyethylene glycoL 3350 17 GM POWD.PACK PO ×2 (09:49→17:46)
[2022-09-15] MEDS: oxyCODONE HCL (*CRX) 5 MG TAB IR PO ×2 (09:54→20:37)
[2022-09-15 10:44] VITALS: BMI 27.3
--- NOTE | 2022-09-15 13:24 | PM.IMHP ---
H&P: [facility] History of Present Illness Date/Time: 09/15/22 13:24 Chief Complaint: extensive decubitus ulcer Narrative: 82-year-old male who presents ER for evaluation of decubitus ulcer.? He has ulcerations across his right flank down past his right hip and into his thigh.? He developed them all laying in a bathtub last month and was admitted to the hospital.? He went to rehab and then was sent home.? He has been unable to get wound care or any additional help at home caring for his wound.? Home health saw him yesterday and was sent to ER. No foul smelling discharge noted. C/o pain, but no other complaints Review of Systems Review of Systems: All systems reviewed & are unremarkable except as noted in HPI and below PMFSH Past Medical History Medical History Basal cell carcinoma Multiple lesions excise over the years. Carpal tunnel syndrome on both sides Cervical post-laminectomy syndrome Cervical spondylosis with radiculopathy Chronic anemia Chronic obstructive pulmonary disease, unspecified Essential hypertension Hypothyroidism Non-insulin dependent type 2 diabetes mellitus Obstructive sleep apnea on CPAP Osteoarthritis Overactive bladder Prostate cancer (~2015) 35 treatments of external beam radiation. 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 Brandin Heredia at [facility]. Surgical History Surgical History History of appendectomy (~07/2017) History of arthroscopy of both shoulders History of cervical spinal surgery (~10/10/19) C3-C4 laminectomy with C2-C5 laminotomy. History of herniorrhaphy (~2015) Open left inguinal herniorrhaphy. History of lumbar fusion Anterior fusion at L2-L5. Posterior fusion at L2-S1. History of orthopedic surgery History of squamous cell carcinoma excision (~02/19/20) Excised from the scalp as detailed above. Status post laminectomy Family History Family History Mother Family history of congestive heart failure Other Diabetes mellitus Social History Social History Social History: The patient lives in his own home in [place]. His of 60 years July 14, 2019. He smoked up to 2 packs of cigarettes per day for 30 years and quit in the mid 1980s. He drinks alcohol very rarely and in moderation. No drug use. He designates his son, Tunde, as his surrogate decision maker. He wishes to be a full code. Smoking packs per day: 2 Smoking cigarettes per day: 40.0 Years smoked: 50 Smoking pack-years: 100.00 Smoking status: Former smoker Additional smoking assessment comments: quit 40 years ago Alcohol intake: never Substance use: never Lack of Transportation: No Lack of Food: Never True Current Housing: I Have Housing Concerned About Future Housing: No Difficulty Paying Gas/Electric Bills: No Difficulty Paying for Meds: No Currently Unemployed: No Education: High School Diploma/GED Difficulty w/ Childcare or Family Care: No Gender identity (if verbalized by the patient): Male Sexual Orientation (if Verbalized by the Patient): Straight or Heterosexual Spiritual care concerns: No Meds Home Medications and Allergies Home Medications Medication Instructions Recorded Confirmed Type trazodone 50 mg tablet 50 mg PO HS 08/20/22 09/15/22 History acetaminophen 325 mg tablet (Mapap 650 mg PO Q6H PRN Mild Pain (1-5) 09/04/22 09/15/22 Rx (acetaminophen)) Or Fever #30 tabs cyclobenzaprine 10 mg tablet 5 mg PO Q8H PRN Muscle Spasm #30 09/04/22 09/15/22 Rx tabs docusate sodium 100 mg capsule 100 mg PO Q12HR #60 caps 09/04/22 09/15/22 Rx hydrocortisone 1 % topical cream 1 applic topical Q12HR PRN Itching 09/04/22 09/15/22 Rx #15 grams
[2022-09-15 14:00] VITALS: BP 116/71; PULSE 81; RESP 20; TEMP 36.3; O2SAT 100
[2022-09-15] MEDS: SILVERGEL (ELTA) 45 ML 1 APPLIC TOPICAL (17:48)
[2022-09-15] MEDS: MORPHINE SULFATE (*CRX) 2 MG/ML INJ 1 MG IV PUSH (17:48)
[2022-09-15 20:00] VITALS: O2SAT 97
[2022-09-15] MEDS: HEPARIN SODIUM 5,000 UNITS/ML VIAL 5000 UNITS SUB-Q (20:03)
[2022-09-15] MEDS: traZODone HCL 50 MG TABLET PO (20:04)
[2022-09-15] MEDS: CYCLOBENZAPRINE HCL 5 MG TABLET PO (20:38)
[2022-09-15] MEDS: ACETAMINOPHEN 325 MG TABLET 650 MG PO (20:38)
[2022-09-15 21:33] VITALS: BP 118/77; PULSE 95; RESP 16; TEMP 36.1; O2SAT 99
--- NOTE | 2022-09-15 21:38 | PC.NURSE ---
pt stated had bm today
[2022-09-16] MEDS: CYCLOBENZAPRINE HCL 5 MG TABLET PO ×2 (04:58→20:53)
[2022-09-16] MEDS: oxyCODONE HCL (*CRX) 5 MG TAB IR PO ×2 (04:58→20:53)
[2022-09-16] MEDS: ACETAMINOPHEN 325 MG TABLET 650 MG PO ×2 (04:59→20:53)
[2022-09-16 05:58] VITALS: BP 111/71; PULSE 85; RESP 16; TEMP 36.1; O2SAT 98
[2022-09-16] MEDS: LEVOTHYROXINE SODIUM 75 MCG TABLET PO (06:25)
[2022-09-16 06:32] LABS: Basophils Percent Auto 0.3 % (0.2-1.2); Eosinophils Absolute Auto 0.1 K/mm3 (0-0.3); Hematocrit 30.7 % (42.0-52.0); Immature Granulocyte Absolute 0.04 K/mm3 (0.00-0.031); Immature Granulocyte Percent A 0.6 % (0-0.5); Lymphocytes Absolute Auto 0.89 K/mm3 (0.9-3.2); Lymphocytes Percent Auto 13.2 % (18.3-44.2); Mean Corpuscular HGB Conc 32.6 g/dl (32-36); Mean Corpuscular Hemoglobin 32.1 pg (26-34); Mean Corpuscular Volume 98.4 fl (80-100); Mean Platelet Volume 9.9 fl (7.4-10.4); Monocytes Absolute Auto 0.8 K/mm3 (0.1-0.6); Monocytes Percent Auto 11.8 % (2.6-8.5); Neutrophils Absolute Auto 4.9 K/mm3 (1.3-6.7); Neutrophils Percent Auto 73.1 % (45.5-73.1); Platelet Count Result 180 k/mm3 (150-375); Red Blood Count 3.12 M/mm3 (4.6-6.20); Red Cell Distribution Width 13.9 % (11.5-14.5); White Blood Count 6.8 K/mm3 (4.5-10.0)
[2022-09-16 06:44] LABS: Anion Gap 2 mmol/L (8-16); Blood Urea Nitrogen 18 mg/dL (9-20); Calcium 7.7 mg/dL (8.4-10.2); Carbon Dioxide 32 mmol/L (22-30); Chloride 97 mmol/L (98-107); Estimated CRCL calculation 69 ml/min; Estimated Glomerular Filt Rate > 60; Glucose 88 mg/dL (65-110); Potassium 3.8 mmol/L (3.4-5.0); Sodium 131 mmol/L (137-145)
[2022-09-16 08:29] VITALS: O2SAT 93
[2022-09-16] MEDS: ESCITALOPRAM OXALATE 10 MG TABLET PO (08:35)
[2022-09-16] MEDS: HEPARIN SODIUM 5,000 UNITS/ML VIAL 5000 UNITS SUB-Q ×2 (08:35→20:53)
[2022-09-16] MEDS: polyethylene glycoL 3350 17 GM POWD.PACK PO ×2 (08:35→17:23)
[2022-09-16] MEDS: DOCUSATE SODIUM 100 MG CAPSULE PO ×2 (08:35→20:53)
[2022-09-16] MEDS: FUROSEMIDE 40 MG TABLET PO (08:35)
[2022-09-16] MEDS: SODIUM CHLORIDE 500 MG TABLET PO ×2 (08:35→17:23)
[2022-09-16] MEDS: SILVERGEL (ELTA) 45 ML 1 APPLIC TOPICAL (08:36)
[2022-09-16 14:00] VITALS: BP 111/65; PULSE 75; RESP 18; TEMP 36.6; O2SAT 98
--- NOTE | 2022-09-16 16:15 | PM.IMPN ---
Progress Note: A&P Assessment and Plan (1) Decubitus skin ulcer: Code(s): L89.90 - Pressure ulcer of unspecified site, unspecified stage Status: Acute (2) Hypothyroidism: Code(s): E03.9 - Hypothyroidism, unspecified Status: Acute Plan 81 years old M with PMH of Hypothyroidism presented with decubitus ulcer. Decubitus Ulcer: Admit to gen med Doesn't look infected at the moment Wound care consult pain consult leg pain: DVT study negative Pain control Right foot/toe pain: check ABIs, xray neuropathy vs osteo vs PAD? Hypothyroidism: c/w levothyroxine DVT ppx: Hep SQ Code:Full Dispo:will need placement Subjective Date/time seen: 09/16/22 16:15 Interval history: No overnight events noted. No chest pain or shortness of breath. No nausea, vomiting or diarrhea. No fevers or chills. Still c/o foot pain, right LE. Review of Systems Review of Systems: 12 point review of systems was assessed and was negative except as noted in the HPI Exam Narrative: General: No acute distress, alert and oriented per baseline HEENT: Atraumatic, normocephalic, mucous membranes moist CV: Regular rate and rhythm, S1, S2 Lungs: Clear to auscultation bilaterally, no rales or crackles noted, no wheezes, good air entry Abdomen: Soft, nontender, nondistended Extremities: Normal to inspection, exquisitely TTP right forefoot and toes Skin: No rashes noted, no lesions or wounds seen Psych: Euthymic, normal affect Objective Data Vital Signs Vital Signs: Vital Signs - 24 hr 09/15/22 20:00 09/15/22 21:33 09/16/22 05:58 Temperature 97 F L 97 F L Pulse Rate 95 85 Respiratory Rate 16 16 Blood Pressure 118/77 111/71 Pulse Oximetry 97 99 98 Oxygen Delivery Room Air 09/16/22 08:29 09/16/22 14:00 Temperature 97.8 F Pulse Rate 75 Respiratory Rate 18 Blood Pressure 111/65 Pulse Oximetry 93 98 Oxygen Delivery Room Air Intake/Output Intake/Output: Intake & Output 09/13/22 09/14/22 09/15/22 09/16/22 23:59 23:59 23:59 23:59 Intake Total 1670 800 Output Total 1120 1100 Balance 550 -300 Meds/Results Medications: Active Medications Generic Name Dose Route Start Last Admin Trade Name Freq PRN Reason Stop Dose Admin Acetaminophen 650 mg 09/15/22 09:10 09/16/22 04:59 Acetaminophen 325 Mg Tablet PO 650 mg Q6H PRN Administration Mild Pain (1-5) Or Fever Cyclobenzaprine HCl 5 mg 09/15/22 09:10 09/16/22 04:58 Cyclobenzaprine Hcl 5 Mg Tablet PO 5 mg Q8H PRN Administration Muscle Spasm Docusate Sodium 100 mg 09/15/22 09:00 09/16/22 08:35 Docusate Sodium 100 Mg Capsule PO 100 mg Q12HR AKIKO Administration Escitalopram Oxalate 10 mg 09/15/22 09:00 09/16/22 08:35 Escitalopram Oxalate 10 Mg Tablet PO 10 mg DAILY AKIKO Administration Furosemide 40 mg 09/15/22 09:00 09/16/22 08:35 Furosemide 40 Mg Tablet PO 40 mg DAILY AKIKO Administration Heparin Sodium (Porcine) 5,000 units 09/15/22 21:00 09/16/22 08:35 Heparin Sodium 5,000 Units/Ml Vial SUB-Q 5,000 units Q12HR AKIKO Administration Levothyroxine Sodium 75 mcg 09/16/22 06:30 09/16/22 06:25 Levothyroxine Sodium 75 Mcg Tablet PO 75 mcg DAILY@0630 AKIKO Administration Miscellaneous Information 0 each 09/15/22 00:01 Buprenorphine 10 Mcg/Hour Patch Weekly- Not Stocked By Pharmacy. Please Have Pt Bring This XX 10/15/22 00:00 [facility] Morphine Sulfate 1 mg 09/15/22 15:48 09/15/22 17:48 Morphine Sulfate (*Crx) 2 Mg/Ml Inj IV PUSH 1 mg Q4H PRN Administration Pain Rated 7-10 Ondansetron HCl 4 mg 09/14/22 21:02 Ondansetron Inj 4 Mg/2 Ml Vial IV PUSH Q4H PRN Nausea Oxycodone HCl 5 mg 09/15/22 09:10 09/16/22 04:58 Oxycodone Hcl (*Crx) 5 Mg Tab Ir PO 5 mg Q4H PRN Administration Pain Rated 7-10 Polyethylene Glycol 17 gm 09/15/22 09:00 09/16/22 08:35 Polyethylene Glycol
[2022-09-16] MEDS: traMADol HCL (*CRX) 25 MG TABLET PO (18:59)
[2022-09-16 20:00] VITALS: PULSE 86; RESP 18; O2SAT 96
[2022-09-16 20:50] VITALS: BP 123/64; PULSE 86; RESP 18; TEMP 37.1; O2SAT 96
[2022-09-16] MEDS: traZODone HCL 50 MG TABLET PO (20:53)
[2022-09-17] MEDS: ACETAMINOPHEN 325 MG TABLET 650 MG PO ×2 (05:37→20:42)
[2022-09-17] MEDS: CYCLOBENZAPRINE HCL 5 MG TABLET PO ×2 (05:37→20:42)
[2022-09-17] MEDS: LEVOTHYROXINE SODIUM 75 MCG TABLET PO (05:37)
[2022-09-17] MEDS: oxyCODONE HCL (*CRX) 5 MG TAB IR PO ×4 (05:38→20:42)
[2022-09-17 06:00] VITALS: BP 115/59; PULSE 86; RESP 16; TEMP 36.2; O2SAT 96
[2022-09-17] MEDS: HEPARIN SODIUM 5,000 UNITS/ML VIAL 5000 UNITS SUB-Q ×2 (08:53→20:41)
[2022-09-17] MEDS: polyethylene glycoL 3350 17 GM POWD.PACK PO ×2 (08:53→17:14)
[2022-09-17] MEDS: SODIUM CHLORIDE 500 MG TABLET PO ×2 (08:53→17:14)
[2022-09-17] MEDS: FUROSEMIDE 40 MG TABLET PO (08:53)
[2022-09-17] MEDS: DOCUSATE SODIUM 100 MG CAPSULE PO ×2 (08:53→20:42)
[2022-09-17] MEDS: ESCITALOPRAM OXALATE 10 MG TABLET PO (08:53)
[2022-09-17] MEDS: ONDANSETRON INJ 4 MG/2 ML VIAL IV PUSH (09:09)
--- NOTE | 2022-09-17 10:48 | PM.IMPN ---
Progress Note: A&P Assessment and Plan (1) Decubitus skin ulcer: Code(s): L89.90 - Pressure ulcer of unspecified site, unspecified stage Status: Acute (2) Hypothyroidism: Code(s): E03.9 - Hypothyroidism, unspecified Status: Acute Plan Decubitus Ulcer: not infected, placement pending discharge ready Leg pain: DVT study negative Pain control Right foot/toe pain: normal B/L ABIs noted foot xray showing severe arthritis, f/u foot/ankle ortho outpatient Hypothyroidism: c/w levothyroxine DVT ppx: Hep SQ Code:Full Dispo:will need placement, ready for discharge today Subjective Date/time seen: 09/17/22 10:48 Interval history: No overnight events noted. No chest pain or shortness of breath. No nausea, vomiting or diarrhea. No fevers or chills. Still c/o foot pain, right LE. Review of Systems Review of Systems: 12 point review of systems was assessed and was negative except as noted in the HPI Exam Narrative: General: No acute distress, alert and oriented per baseline HEENT: Atraumatic, normocephalic, mucous membranes moist CV: Regular rate and rhythm, S1, S2 Lungs: Clear to auscultation bilaterally, no rales or crackles noted, no wheezes, good air entry Abdomen: Soft, nontender, nondistended Extremities: Normal to inspection, exquisitely TTP right forefoot and toes Skin: No rashes noted, no lesions or wounds seen Psych: Euthymic, normal affect Objective Data Vital Signs Vital Signs: Vital Signs - 24 hr 09/16/22 14:00 09/16/22 20:50 09/16/22 20:00 Temperature 97.8 F 98.8 F Pulse Rate 75 86 86 Respiratory Rate 18 18 18 Blood Pressure 111/65 123/64 Pulse Oximetry 98 96 96 Oxygen Delivery Room Air 09/17/22 06:00 09/17/22 08:00 Temperature 97.1 F L Pulse Rate 86 Respiratory Rate 16 Blood Pressure 115/59 L Pulse Oximetry 96 Oxygen Delivery Room Air Intake/Output Intake/Output: Intake & Output 09/14/22 09/15/22 09/16/22 09/17/22 23:59 23:59 23:59 23:59 Intake Total 1670 1395 250 Output Total 1120 1550 500 Balance 550 -155 -250 Meds/Results Medications: Active Medications Generic Name Dose Route Start Last Admin Trade Name Freq PRN Reason Stop Dose Admin Acetaminophen 650 mg 09/15/22 09:10 09/17/22 05:37 Acetaminophen 325 Mg Tablet PO 650 mg Q6H PRN Administration Mild Pain (1-5) Or Fever Cyclobenzaprine HCl 5 mg 09/15/22 09:10 09/17/22 05:37 Cyclobenzaprine Hcl 5 Mg Tablet PO 5 mg Q8H PRN Administration Muscle Spasm Docusate Sodium 100 mg 09/15/22 09:00 09/17/22 08:53 Docusate Sodium 100 Mg Capsule PO 100 mg Q12HR AKIKO Administration Escitalopram Oxalate 10 mg 09/15/22 09:00 09/17/22 08:53 Escitalopram Oxalate 10 Mg Tablet PO 10 mg DAILY AKIKO Administration Furosemide 40 mg 09/15/22 09:00 09/17/22 08:53 Furosemide 40 Mg Tablet PO 40 mg DAILY AKIKO Administration Heparin Sodium (Porcine) 5,000 units 09/15/22 21:00 09/17/22 08:53 Heparin Sodium 5,000 Units/Ml Vial SUB-Q 5,000 units Q12HR AKIKO Administration Levothyroxine Sodium 75 mcg 09/16/22 06:30 09/17/22 05:37 Levothyroxine Sodium 75 Mcg Tablet PO 75 mcg DAILY@0630 AKIKO Administration Miscellaneous Information 0 each 09/15/22 00:01 Buprenorphine 10 Mcg/Hour Patch Weekly- Not Stocked By Pharmacy. Please Have Pt Bring This XX 10/15/22 00:00 [facility] Morphine Sulfate 1 mg 09/15/22 15:48 09/15/22 17:48 Morphine Sulfate (*Crx) 2 Mg/Ml Inj IV PUSH 1 mg Q4H PRN Administration Pain Rated 7-10 Ondansetron HCl 4 mg 09/14/22 21:02 09/17/22 09:09 Ondansetron Inj 4 Mg/2 Ml Vial IV PUSH 4 mg Q4H PRN Administration Nausea Oxycodone HCl 5 mg 09/15/22 09:10 09/17/22 05:38 Oxycodone Hcl (*Crx) 5 Mg Tab Ir PO 5 mg Q4H PRN Administration Pain Rated 7-10 Polyethylene Glycol 17 gm 09/15/22 09:00 09/17/22 08:53 Polyethylen
--- NOTE | 2022-09-17 10:52 | P.DS_ITS ---
DS: Admitting Diagnosis Discharge Date 09/17/22 Admitting Diagnosis decubitus ulcer DS: Discharge Diagnosis Discharge Diagnosis (1) Decubitus skin ulcer: Code(s): L89.90 - Pressure ulcer of unspecified site, unspecified stage Status: Acute (2) Hypothyroidism: Code(s): E03.9 - Hypothyroidism, unspecified Status: Acute Plan Decubitus Ulcer: not infected, placement pending discharge ready Leg pain: DVT study negative Pain control Right foot/toe pain: normal B/L ABIs noted foot xray showing severe arthritis, f/u foot/ankle ortho outpatient Hypothyroidism: c/w levothyroxine DVT ppx: Hep SQ Code:Full Dispo:will need placement, ready for discharge today DS: Summary Hospital Course Hospital Course: 81 year old male with history of hypothyroidism presenting to have his decubitus ulcer evaluated. No signs of infection. Also c/o foot pain, xrays showed severe arthritis, would recommend outpatient eval by podiatry. See above and med rec for details, started on mobic 7.5 mg daily. Time Spent with Patient Time attestation: Total time spent providing and/or coordinating discharge services: Exam Narrative: General: No acute distress, alert and oriented per baseline HEENT: Atraumatic, normocephalic, mucous membranes moist CV: Regular rate and rhythm, S1, S2 Lungs: Clear to auscultation bilaterally, no rales or crackles noted, no wh eezes, good air entry Abdomen: Soft, nontender, nondistended Extremities: Normal to inspection, exquisitely TTP right forefoot and toes Skin: No rashes noted, no lesions or wounds seen Psych: Euthymic, normal affect Discharge Plan Discharge Attending physician on discharge: Shruthi Casarez Discharging Clinician: Shruthi Casarez Patient Disposition: SNF Activity: as tolerated Diet: as tolerated Patient Instructions: Heart Failure (DC) Stand Alone Forms: General Discharge Information Follow-up/Referrals: Anthony Llanes JR, MD [Physician] - [place],Patrick Donaldson MD [Primary Care Provider] - Discharge Medications: New meloxicam 7.5 mg tablet 7.5 mg PO DAILY 30 Days Qty: 30 0RF Continued trazodone 50 mg tablet 50 mg PO HS furosemide 40 mg tablet 40 mg PO DAILY levothyroxine 125 mcg tablet 125 mcg PO DAILY escitalopram oxalate 10 mg tablet 10 mg PO DAILY acetaminophen [Mapap (acetaminophen)] 325 mg Tablet 650 mg PO Q6H PRN (Reason: Mild Pain (1-5) Or Fever) Qty: 30 0RF levothyroxine [Synthroid] 75 mcg Tablet 75 mcg PO DAILY@0630 Qty: 30 0RF cyclobenzaprine 10 mg Tablet 5 mg PO Q8H PRN (Reason: Muscle Spasm) Qty: 30 0RF docusate sodium 100 mg Capsule 100 mg PO Q12HR Qty: 60 0RF polyethylene glycol 3350 [Miralax] 17 gram Powder In Packet 17 g PO BID Qty: 30 0RF hydrocortisone 1 % Cream 1 applic topical Q12HR PRN (Reason: Itching) Qty: 15 0RF oxycodone 5 mg Tablet 5 mg PO Q4H PRN (Reason: Pain Rated 7-10) Qty: 20 0RF sodium chloride 1,000 mg Tablet,Soluble 500 mg PO BID Qty: 20 0RF Date of admission: 09/14/22 21:03 Primary Care Provider: [place],Patrick Donaldson Admitting Provider: Brook Flaherty Attending physician on admission: Brook Flaherty Condition: Stable
[2022-09-17 11:54] LABS: Basophils Percent Auto 0.2 % (0.2-1.2); Eosinophils Percent Auto 0.2 % (0-4.4); Hematocrit 33.1 % (42.0-52.0); Hemoglobin 10.7 g/dL (14.0-18.0); Immature Granulocyte Absolute 0.05 K/mm3 (0.00-0.031); Immature Granulocyte Percent A 0.5 % (0-0.5); Lymphocytes Absolute Auto 0.82 K/mm3 (0.9-3.2); Lymphocytes Percent Auto 8.3 % (18.3-44.2); Mean Corpuscular HGB Conc 32.3 g/dl (32-36); Mean Corpuscular Hemoglobin 32.5 pg (26-34); Mean Corpuscular Volume 100.6 fl (80-100); Mean Platelet Volume 9.8 fl (7.4-10.4); Monocytes Absolute Auto 0.9 K/mm3 (0.1-0.6); Monocytes Percent Auto 8.6 % (2.6-8.5); Neutrophils Absolute Auto 8.1 K/mm3 (1.3-6.7); Neutrophils Percent Auto 82.2 % (45.5-73.1); Platelet Count Result 205 k/mm3 (150-375); Red Blood Count 3.29 M/mm3 (4.6-6.20); Red Cell Distribution Width 13.8 % (11.5-14.5); White Blood Count 9.9 K/mm3 (4.5-10.0)
[2022-09-17 12:02] LABS: Alanine Aminotransferase 13 U/L (6-50); Albumin Level 2.6 g/dL (3.5-5.1); Alkaline Phosphatase 221 U/L (38-126); Anion Gap 0 mmol/L (8-16); Aspartate Amino Transferase 22 U/L (17-59); Bilirubin,Total 0.4 mg/dL (0.2-1.3); Blood Urea Nitrogen 21 mg/dL (9-20); Calcium 7.8 mg/dL (8.4-10.2); Carbon Dioxide 37 mmol/L (22-30); Chloride 94 mmol/L (98-107); Estimated CRCL calculation 69 ml/min; Estimated Glomerular Filt Rate > 60; Glucose 145 mg/dL (65-110); Potassium 4.4 mmol/L (3.4-5.0); Sodium 131 mmol/L (137-145)
[2022-09-17 14:00] VITALS: BP 113/82; PULSE 84; RESP 20; TEMP 36.2; O2SAT 97
[2022-09-17] MEDS: MELOXICAM 7.5 MG TABLET PO (17:12)
[2022-09-17] MEDS: SILVERGEL (ELTA) 45 ML 1 APPLIC TOPICAL (17:13)
[2022-09-17 19:54] VITALS: O2SAT 97
[2022-09-17] MEDS: traZODone HCL 50 MG TABLET PO (20:42)
[2022-09-17 21:14] VITALS: BP 113/65; PULSE 89; RESP 18; TEMP 36.6; O2SAT 96
[2022-09-18] MEDS: CYCLOBENZAPRINE HCL 5 MG TABLET PO (05:18)
[2022-09-18] MEDS: oxyCODONE HCL (*CRX) 5 MG TAB IR PO ×2 (05:18→20:33)
[2022-09-18] MEDS: LEVOTHYROXINE SODIUM 75 MCG TABLET PO (05:18)
[2022-09-18] MEDS: ACETAMINOPHEN 325 MG TABLET 650 MG PO (05:18)
[2022-09-18 05:59] LABS: Basophils Percent Auto 0.2 % (0.2-1.2); Eosinophils Absolute Auto 0.1 K/mm3 (0-0.3); Eosinophils Percent Auto 0.9 % (0-4.4); Hematocrit 30.8 % (42.0-52.0); Hemoglobin 9.9 g/dL (14.0-18.0); Immature Granulocyte Absolute 0.06 K/mm3 (0.00-0.031); Immature Granulocyte Percent A 0.7 % (0-0.5); Lymphocytes Absolute Auto 0.92 K/mm3 (0.9-3.2); Lymphocytes Percent Auto 10.8 % (18.3-44.2); Mean Corpuscular HGB Conc 32.1 g/dl (32-36); Mean Corpuscular Hemoglobin 32.5 pg (26-34); Mean Platelet Volume 9.9 fl (7.4-10.4); Monocytes Absolute Auto 0.9 K/mm3 (0.1-0.6); Monocytes Percent Auto 10.9 % (2.6-8.5); Neutrophils Absolute Auto 6.5 K/mm3 (1.3-6.7); Neutrophils Percent Auto 76.5 % (45.5-73.1); Platelet Count Result 203 k/mm3 (150-375); Red Blood Count 3.05 M/mm3 (4.6-6.20); Red Cell Distribution Width 13.8 % (11.5-14.5); White Blood Count 8.5 K/mm3 (4.5-10.0)
[2022-09-18 06:00] VITALS: BP 96/59; PULSE 86; RESP 18; TEMP 36.2; O2SAT 94
[2022-09-18 06:17] LABS: Alanine Aminotransferase 11 U/L (6-50); Albumin Level 2.3 g/dL (3.5-5.1); Alkaline Phosphatase 211 U/L (38-126); Anion Gap -2 mmol/L (8-16); Aspartate Amino Transferase 21 U/L (17-59); Bilirubin,Total 0.5 mg/dL (0.2-1.3); Blood Urea Nitrogen 21 mg/dL (9-20); Calcium 7.7 mg/dL (8.4-10.2); Carbon Dioxide 39 mmol/L (22-30); Chloride 93 mmol/L (98-107); Estimated CRCL calculation 69 ml/min; Estimated Glomerular Filt Rate > 60; Glucose 89 mg/dL (65-110); Potassium 4.3 mmol/L (3.4-5.0); Sodium 130 mmol/L (137-145)
[2022-09-18] MEDS: FUROSEMIDE 40 MG TABLET PO (09:08)
[2022-09-18] MEDS: DOCUSATE SODIUM 100 MG CAPSULE PO ×2 (09:08→20:33)
[2022-09-18] MEDS: SODIUM CHLORIDE 500 MG TABLET PO ×2 (09:08→16:46)
[2022-09-18] MEDS: HEPARIN SODIUM 5,000 UNITS/ML VIAL 5000 UNITS SUB-Q ×2 (09:08→20:33)
[2022-09-18] MEDS: MELOXICAM 7.5 MG TABLET PO (09:08)
[2022-09-18] MEDS: ESCITALOPRAM OXALATE 10 MG TABLET PO (09:08)
[2022-09-18] MEDS: SILVERGEL (ELTA) 45 ML 1 APPLIC TOPICAL (09:09)
[2022-09-18] MEDS: ONDANSETRON INJ 4 MG/2 ML VIAL IV PUSH (09:29)
[2022-09-18 09:41] VITALS: BP 104/62
[2022-09-18 14:00] VITALS: BP 103/60; PULSE 82; RESP 15; TEMP 36.3; O2SAT 93
[2022-09-18] MEDS: polyethylene glycoL 3350 17 GM POWD.PACK PO (16:46)
[2022-09-18] MEDS: traZODone HCL 50 MG TABLET PO (20:33)
[2022-09-18 22:00] VITALS: BP 93/59; PULSE 85; RESP 18; TEMP 36.6; O2SAT 93
== END 2022-09-18 21:48 ==
LOC: ANHED 21:26 → ANH3MEDSUR 09-15 05:51
PROVIDERS: Admitting Provider Internal Medicine; Emergency Provider Emergency Medicine; PCP Internal Medicine; Visit Provider Student in an Organized Health Care Education/Training Program
DX: L89.40 Pressure ulcer of contiguous site of back, buttock and hip, unspecified stage (principal); E03.9 Hypothyroidism, unspecified; F03.90 Unspecified dementia, unspecified severity, without behavioral disturbance, psychotic disturbance, mood disturbance, and anxiety; D64.9 Anemia, unspecified; J44.9 Chronic obstructive pulmonary disease, unspecified; I10 Essential (primary) hypertension; E11.8 Type 2 diabetes mellitus with unspecified complications; G47.33 Obstructive sleep apnea (adult) (pediatric); Z99.89 Dependence on other enabling machines and devices; M85.871 Other specified disorders of bone density and structure, right ankle and foot; M19.071 Primary osteoarthritis, right ankle and foot; M79.604 Pain in right leg; N32.81 Overactive bladder; Z79.899 Other long term (current) drug therapy; Z87.891 Personal history of nicotine dependence; Z85.46 Personal history of malignant neoplasm of prostate; Z92.3 Personal history of irradiation; Z85.828 Personal history of other malignant neoplasm of skin
CPT/HCPCS: 36415; 73620; 80048; 80053; 82550; 83605; 85025; 93922; 93970; 96372; 96374; 96375; 96376; 97110; 97116; 97161; 97165; 97530; 97535; 99285; A9270; G0378; G0379; J1644; J2270; J2405